=== PATIENT | male | born 1955 | race Caucasian/White ===

== ENCOUNTER 2016-12-20 20:08 | Emergency (ER) | payer OTHER ==
[2016-12-20] MEDS ORDERED: Acetaminophen/oxyCODONE 325-7.5 MG Tab PO ONE (20:50)
--- NOTE | 2016-12-20 20:54 | EDM.PDOC ---
ED HPI GENERAL MEDICAL PROBLEM - General Chief Complaint: Lower Extremity Injury/Pain Stated Complaint: KNEE PAIN Time Seen by Provider: 12/20/16 20:43 - History of Present Illness INITIAL COMMENTS - FREE TEXT/NARRATIVE: HISTORY AND PHYSICAL: History of present illness: The patient is a 61-year-old male with multiple medical history and a history of bilateral knee replacements here with Dr. Whitehead and presents with complaints of bilateral knee pain that started this morning when he woke up. Patient states he had a normal day yesterday and has had no recent falls or trauma to his knees. Patient has no systemic complaints of fever chills chest pain shortness of breath abdominal pain. Patient says that he has recently returned to work and has been doing more walking that nothing excessive. Patient takes Naprosyn daily and tried some Tylenol this morning and it did not help and he says that anytime he moves the knees or tries to weight-bear he is having pain. Patient is a diabetic and says that his blood sugar has not been well controlled and has been running in the 200s to 300s. He has not had polyuria polydipsia. The patient denies any weakness in his legs or neurovascular changes and has no distal ankle or foot pain pain and no hip pain. The patient does state that for his knee surgeries he used to get steroid injections at the clinic. Review of systems: As per history of present illness and below otherwise all systems reviewed and negative. Past medical history: As per history of present illness and as reviewed below otherwise noncontributory. Surgical history: As per history of present illness and as reviewed below otherwise noncontributory. Social history: No reported history of drug or alcohol abuse. Family history: As per history of present illness and as reviewed below otherwise noncontributory. Physical exam: Gen.: Well-developed well-nourished man who is overweight and nontoxic. Vital signs of the note by me. HEENT: Atraumatic, normocephalic, negative for conjunctival pallor or scleral icterus, mucous membranes moist, throat clear, neck supple, nontender, trachea midline. Lungs: Clear to auscultation, breath sounds equal bilaterally, chest nontender. Heart: S1S2, regular rhythm but slightly tachycardic rate on my evaluation and no overt murmurs Abdomen: Soft, nondistended, nontender. NABS Pelvis: Stable nontender. Genitourinary: Deferred. Rectal: Deferred. Extremities: Atraumatic with well-healed scars on bilateral knees noted, there is no warmth to bilateral knees no erythema and no joint effusions and no bony deformities, there is some diffuse tenderness at the anterior aspect of bilateral knees and there is gross arthritic changes bilaterally,, negative for cords or calf pain. Neurovascular unremarkable. Neuro: Awake, alert, oriented. Motor and sensory unremarkable throughout. Exam nonfocal. Diagnostics: CBC CMP CRP ESR uric acid I discussed x-rays with the patient but as he has had no recent trauma he and I both feel that the yield on that would be low. We will defer them at this time Therapeutics: [place] insulin I discussed all testing results with the patient and at bedside. [facility] with his [facility] there and they state they have an appointment with Dr. Sears in our clinic tomorrow. I discussed with him his use of sliding scale insulin and he said that he currently does not do that but I did tell them that they should address that with Dr. Sears tomorrow. I will give him a dose of insulin here as he is not acidotic and does not merit inpatient care. He states he has an Accu-Chek machine at home which I advised him to check his blood sugar in 1 hour after discharge and either take a snack or he may go to bed as long as the number is appropriate. He has a cane at home and does not want a walker and I' ve advised him to follow-up in the ortho clinic as well for care of his knees. At this point I cannot give him oral steroids as that will further complicate his blood sugar. He states understanding. I will give him some Percocet to take at home and have strongly advised him to follow-up with Dr. Sears and Dr. Whitehead Impression: Bilateral knee pain likely inflammatory/arthritic, hyperglycemia with a history of diabetes poorly controlled Definitive disposition and diagnosis as appropriate pending reevaluation and review of above. Bilateral Knee Pain Score (Numeric/FACES): 8 - Related Data Allergies Allergy/AdvReac Type Severity Reaction Status Date / Time Sulfa (Sulfonamide Allergy Other Verified 12/20/16 20:43 Antibiotics) bee stings Allergy Swelling Uncoded 12/20/16 20:43 Home Meds: Home Meds Lisinopril 20 mg PO BEDTIME 08/02/14 [History] atorvaSTATin [Lipitor] 20 mg PO BEDTIME 08/02/14 [History] Fluticasone Propionate [Flovent] 2 sprays NASBOTH ASDIRECTED PRN 09/20/15 [ History] Gabapentin [Neurontin] 300 mg PO Q8H 09/20/15 [History] Insulin Glarg,Human.Rec.Analog [LantUS Solostar] 20 units SQ QPM 09/20/15 [ History] Metoprolol Succinate [Toprol XL 100mg] 100 mg PO BEDTIME 09/20/15 [History] Omeprazole [Prilosec] 40 mg PO DAILY PRN 09/20/15 [History] Saxagliptin HCl [Onglyza] 5 mg PO BEDTIME 09/20/15 [History] metFORMIN HCl [Metformin HCl] 1,000 mg PO BID 09/20/15 [History] Aspirin [Adult Low Dose Aspirin EC] 81 mg PO BEDTIME 12/12/15 [History] glipiZIDE [Glucotrol] 10 mg PO BID 12/12/15 [History] Insulin Glarg,Human.Rec.Analog [LantUS Solostar] 50 units SUBCUT QAM 12/16/15 [ History] Insulin Aspart [NovoLOG] 8 units SUBCUT TID 12/20/16 [History] Past Medical History - Past Health History Medical/Surgical History: Denies Medical/Surgical History HEENT History: Reports: Allergic Rhinitis Other HEENT History: uses reading glasses Cardiovascular History: Reports: CAD, High Cholesterol, Hypertension Other Cardiovascular History: "Heart skips a beat every so often". Atypical chest pain, 40% occlusion RCA, on beta stephen and nitrates. walks 4-8 miles/ day Respiratory History: Reports: None Gastrointestinal History: Reports: None Other Gastrointestinal History: occasional GERD, diverticulitis Genitourinary History: Reports: None Musculoskeletal History: Reports: Arthritis, Fracture Other Musculoskeletal History: hx of fx right wrist, 2 fingers right hand, 2 ribs Neurological History: Reports: None Other Neuro History: tremor to left hand, bulging disk in spine Psychiatric History: Reports: None Endocrine/Metabolic History: Reports: Diabetes, Type I Other Endocrine/Metabolic History: on insulin, basal dose bid and sliding scale with meals. last dose of insulin was basal dose yeat evening Hematologic History: Reports: None Immunologic History: Reports: None Oncologic (Cancer) History: Reports: None Dermatologic History: Reports: None - Infectious Disease History Infectious Disease History: Reports: Chicken Pox, Measles, Mumps, Rubella - Past Surgical History Male Surgical History: Reports: Varicocele Resection Musculoskeletal Surgical History: Reports: Knee Replacement, Shoulder Surgery Social & Family History - Family History HEENT: Reports: Cataract Cardiac: Reports: Bypass, CAD, [place] Endocrine/Metabolic: Reports: Diabetes, type II Oncologic: Reports: Lung, Prostate - Tobacco Use Smoking Status *Q: Never Smoker Second Hand Smoke Exposure: No - Alcohol Use Days Per Week of Alcohol Use: 0 Number of Drinks Per Day: 0 Total Drinks Per Week: 0 - Recreational Drug Use Recreational Drug Use: No Drug Use in Last 12 Months: No Review of Systems - Review of Systems Review Of Systems: ROS reveals no pertinent complaints other than HPI. ED EXAM, GENERAL - Physical Exam Exam: See Below (See dictation) Course - Vital Signs Last Recorded V/S: Last Vital Signs Temp 36.6 C 12/20/16 20:39 Pulse 129 H 12/20/16 20:39 Resp 20 12/20/16 20:39 BP 161/84 H 12/20/16 20:39 Pulse Ox 95 12/20/16 20:39 - Orders/Labs/Meds Labs: Laboratory Tests 12/20/16 12/20/16 12/20/16 Range/Units 21:05 21:05 21:05 WBC 9.17 (4.0-11.0) K/uL RBC 4.66 (4.50-5.90) M/uL Hgb 13.2 (13.0-17.0) g/dL Hct 39.7 (38.0-50.0) % MCV 85.2 (80.0-98.0) fL MCH 28.3 (27.0-32.0) pg MCHC 33.2 (31.0-37.0) g/dL RDW Std Deviation 44.6 (28.0-62.0) fl RDW Coeff of Leny 14 (11.0-15.0) % Plt Count 134 L (150-400) K/uL MPV 9.50 (7.40-12.00) fL Neut % (Auto) 85.9 H (48.0-80.0) % Lymph % (Auto) 9.4 L (16.0-40.0) % Saline % (Auto) 4.3 (0.0-15.0) % Eos % (Auto) 0.3 (0.0-7.0) % Baso % (Auto) 0.1 (0.0-1.5) % Neut # (Auto) 7.9 H (1.4-5.7) K/uL Lymph # (Auto) 0.9 (0.6-2.4) K/uL Saline # (Auto) 0.4 (0.0-0.8) K/uL Eos # (Auto) 0.0 (0.0-0.7) K/uL Baso # (Auto) 0.0 (0.0-0.1) K/uL Nucleated RBC % 0.0 /100WBC Nucleated RBCs # 0 K/uL ESR 29 H (0-19) mm/hr Sodium 131 L (136-146) mmol/L Potassium 5.3 H (3.5-5.1) mmol/L Chloride 103 (98-110) mmol/L Carbon Dioxide 19 L (21-31) mmol/L BUN 25 H (6.0-23.0) mg/dL Creatinine 1.5 (0.6-1.5) mg/dL Est Cr Clr Drug Dosing 65.10 mL/min Estimated GFR (MDRD) 47.9 ml/min Glucose 435 H (60-110) mg/dL Hemoglobin A1c (0.0-6.0) % Uric Acid 6.5 (2.1-7.4) mg/dL Calcium 9.9 (8.8-10.8) mg/dL Total Bilirubin 0.6 (0.1-1.5) mg/dL AST 34 (5-40) IU/L ALT 56 H (8-54) IU/L Alkaline Phosphatase 149 (40-150) C-Reactive Protein 11.48 H (0.0-0.5) mg/dL Total Protein 7.5 (6.0-8.0) g/dL Albumin 4.1 (3.5-5.0) g/dL Globulin 3.4 (2.0-3.5) g/dL Albumin/Globulin Ratio 1.2 L (1.3-2.8) 12/20/ Range/Units 21:05 WBC (4.0-11.0) K/uL RBC (4.50-5.90) M/uL Hgb (13.0-17.0) g/dL Hct (38.0-50.0) % MCV (80.0-98.0) fL MCH (27.0-32.0) pg MCHC (31.0-37.0) g/dL RDW Std Deviation (28.0-62.0) fl RDW Coeff of Leny (11.0-15.0) % Plt Count (150-400) K/uL MPV (7.40-12.00) fL Neut % (Auto) (48.0-80.0) % Lymph % (Auto) (16.0-40.0) % Saline % (Auto) (0.0-15.0) % Eos % (Auto) (0.0-7.0) % Baso % (Auto) (0.0-1.5) % Neut # (Auto) (1.4-5.7) K/uL Lymph # (Auto) (0.6-2.4) K/uL Saline # (Auto) (0.0-0.8) K/uL Eos # (Auto) (0.0-0.7) K/uL Baso # (Auto) (0.0-0.1) K/uL Nucleated RBC % /100WBC Nucleated RBCs # K/uL ESR (0-19) mm/hr Sodium (136-146) mmol/L Potassium (3.5-5.1) mmol/L Chloride (98-110) mmol/L Carbon Dioxide (21-31) mmol/L BUN (6.0-23.0) mg/dL Creatinine (0.6-1.5) mg/dL Est Cr Clr Drug Dosing mL/min Estimated GFR (MDRD) ml/min Glucose (60-110) mg/dL Hemoglobin A1c 10.8 H (0.0-6.0) % Uric Acid (2.1-7.4) mg/dL Calcium (8.8-10.8) mg/dL Total Bilirubin (0.1-1.5) mg/dL AST (5-40) IU/L ALT (8-54) IU/L Alkaline Phosphatase (40-150) C-Reactive Protein (0.0-0.5) mg/dL Total Protein (6.0-8.0) g/dL Albumin (3.5-5.0) g/dL Globulin (2.0-3.5) g/dL Albumin/Globulin Ratio (1.3-2.8) Meds: Medications Discontinued Medications Generic Name Dose Route Start Last Admin Trade Name Nisha PRN Reason Stop Dose Admin Insulin Human Regular 20 unit 12/20/16 22:09 Novolin R SUBCUT 12/20/16 22:10 ONETIME ONE Protocol Oxycodone/Acetaminophen 1 tab 12/20/16 20:50 12/20/16 21:41 Percocet 325-7.5 Mg PO 12/20/16 20:51 1 tab ONETIME ONE Administration Departure - Departure Time of Disposition: 22:14 Disposition: Home, Self-Care 01 Condition: Good Clinical Impression: Bilateral knee pain Qualifiers: Chronicity: acute Qualified Code(s): M25.561 - Pain in right knee; M25.562 - Pain in left knee - Discharge Information Forms: ED Department Discharge Additional Instructions: The following information is given to patients seen in the emergency department who are being discharged to home. This information is to outline your options for follow-up care. We provide all patients seen in our emergency department with a follow-up referral. The need for follow-up, as well as the timing and circumstances, are variable depending upon the specifics of your emergency department visit. If you don't have a primary care physician on staff, we will provide you with a referral. We always advise you to contact your personal physician following an emergency department visit to inform them of the circumstance of the visit and for follow-up with them and/or the need for any referrals to a consulting specialist. The emergency department will also refer you to a specialist when appropriate. This referral assures that you have the opportunity for followup care with a specialist. All of these measure are taken in an effort to provide you with optimal care, which includes your followup. Under all circumstances we always encourage you to contact your private physician who remains a resource for coordinating your care. When calling for followup care, please make the office aware that this follow-up is from your recent emergency room visit. If for any reason you are refused follow-up, please contact the [facility] emergency department at and ask to speak to the emergency department charge nurse. [facility] Primary care- Internal Medicine and Family [address] [place] [id number] [facility] Specialty Care--Orthopedic clinic Professional Building [address] [place] [address] [phone] Please check your blood sugar at home as we discussed one hour after discharge and either eat a snack or you may go to bed pending that result. Please call and follow up in the ortho clinic for your knee pain and use Percocet you have been prescribed as needed. Please also keep your appointment with Dr. gomez to address her blood sugar as we discussed. Return to ER as needed and as discussed. Please use her cane
[2016-12-20] MEDS ORDERED: Insulin Regular, Human 100 Units/ML 10 ML Vial SUBCUT ONE (22:09)
[2016-12-20 22:27] VITALS: BP 138/80
[2016-12-20] MEDS ORDERED: Insulin Regular, Human 100 Units/ML 10 ML Vial ONE (22:33)
== END 2016-12-20 22:40 | disposition home or self-care (01) ==
LOC: MW.ED 20:08
DX: M25.562 Pain in left knee (principal); M25.561 Pain in right knee; E10.65 Type 1 diabetes mellitus with hyperglycemia; E78.00 Pure hypercholesterolemia, unspecified; I10 Essential (primary) hypertension; I25.10 Atherosclerotic heart disease of native coronary artery without angina pectoris; K21.9 Gastro-esophageal reflux disease without esophagitis; Z88.2 Allergy status to sulfonamides; Z91.030 Bee allergy status; Z79.899 Other long term (current) drug therapy; Z79.84 Long term (current) use of oral hypoglycemic drugs; Z79.82 Long term (current) use of aspirin
CPT/HCPCS: 36415; 80053; 83036; 84550; 85025; 85652; 86140; 96372; 99283; J1815; 99284

== ENCOUNTER 2017-08-09 08:42 | Emergency (ER) | payer OTHER ==
--- NOTE | 2017-08-09 09:35 | EDM.PDOC ---
ED HPI GENERAL MEDICAL PROBLEM - General Chief Complaint: Back Pain or Injury Stated Complaint: LOWER BACK PAIN Time Seen by Provider: 08/09/17 09:21 - History of Present Illness INITIAL COMMENTS - FREE TEXT/NARRATIVE: HISTORY AND PHYSICAL: History of present illness: Patient is a 61-year-old male who presents with complaints of lower back muscular pain that started 1-1/2 days ago when he twisted funny while at work at the [employer]. The patient said he did not feel the discomfort in the injury happened but later that evening it became more staff and the pain worsens with certain movements. The pain does not radiate to his leg and has had no bowel or bladder disturbances. He has not had any direct trauma to his back. The patient tells me he has a history of a disc problem in the past for which she got steroid injections with that disc problem the pain radiated to his legs and he had neurosensory changes and this is not like that. Patient has been using [id number] meds but did not get much sleep due to the discomfort. When asked specifically if he would be here without his employers insistence he tells me no ;patient was able to ambulate into the ED Patient has a history of diabetes hypercholesterolemia and hypertension [facility] which [facility] Review of systems: As per history of present illness and below otherwise all systems reviewed and negative. Past medical history: As per history of present illness and as reviewed below otherwise noncontributory. Surgical history: As per history of present illness and as reviewed below otherwise noncontributory. Social history: No reported history of drug or alcohol abuse. Family history: As per history of present illness and as reviewed below otherwise noncontributory. Physical exam: Gen.: Well-developed well-nourished overweight man who is nontoxic and vital signs have been reviewed by me HEENT: Atraumatic, normocephalic, negative for conjunctival pallor or scleral icterus, mucous membranes moist, throat clear, neck supple, nontender, trachea midline. Lungs: Clear to auscultation, breath sounds equal bilaterally, chest nontender. Heart: S1S2, regular, and rhythm no overt murmurs Abdomen: Soft, nondistended, nontender. NABS Negative for costovertebral tenderness. Pelvis: Stable nontender. Genitourinary: Deferred. Rectal: Deferred. Extremities: Atraumatic, negative for cords or calf pain. Neurovascular unremarkable. Neuro: Awake, alert, oriented. Cranial nerves II through XII unremarkable. Cerebellum unremarkable. Motor and sensory unremarkable throughout. Exam nonfocal. Back: There are no midline step-offs tenderness defects of the thoracic or lumbar spine there is diffuse tenderness in the lumbar paraspinal musculature bilaterally on palpation without swelling defects or deformities. Diagnostics: [] Therapeutics: Patient was offered x-rays but defers The patient drove himself so I will give muscle relaxers for home I caution the patient for close follow-up with the [facility] or one of our clinic providers and to apply heat use the Aleve he has as well as the muscle relaxer. I did strongly advised him that if he felt that the back was becoming more of a disc issue and he was having any neuro issues that he should return immediately to the [facility] or here for further evaluation and care. Impression: Lumbar back strain Definitive disposition and diagnosis as appropriate pending reevaluation and review of above. lower back Pain Score (Numeric/FACES): 8 - Related Data Allergies Allergy/AdvReac Type Severity Reaction Status Date / Time Sulfa (Sulfonamide Allergy Other Verified 08/09/17 08:51 Antibiotics) bee stings Allergy Swelling Uncoded 08/09/17 08:51 Home Meds: Home Meds Lisinopril 20 mg PO BEDTIME 08/02/14 [History] atorvaSTATin [Lipitor] 20 mg PO BEDTIME 08/02/14 [History] Fluticasone Propionate [Flovent] 2 sprays NASBOTH ASDIRECTED PRN 09/20/15 [ History] Gabapentin [Neurontin] 300 mg PO Q8H 09/20/15 [History] Insulin Glarg,Human.Rec.Analog [LantUS Solostar] 20 units SQ QPM 09/20/15 [ History] Metoprolol Succinate [Toprol XL 100mg] 100 mg PO BEDTIME 09/20/15 [History] Omeprazole [Prilosec] 40 mg PO DAILY PRN 09/20/15 [History] Saxagliptin HCl [Onglyza] 5 mg PO BEDTIME 09/20/15 [History] metFORMIN HCl [Metformin HCl] 1,000 mg PO BID 09/20/15 [History] Aspirin [Adult Low Dose Aspirin EC] 81 mg PO BEDTIME 12/12/15 [History] glipiZIDE [Glucotrol] 10 mg PO BID 12/12/15 [History] Insulin Glarg,Human.Rec.Analog [LantUS Solostar] 50 units SUBCUT QAM 12/16/15 [ History] Insulin Aspart [NovoLOG] 8 units SUBCUT TID 12/20/16 [History] Past Medical History - Past Health History Medical/Surgical History: Denies Medical/Surgical History HEENT History: Reports: Allergic Rhinitis Other HEENT History: uses reading glasses Cardiovascular History: Reports: CAD, High Cholesterol, Hypertension Other Cardiovascular History: "Heart skips a beat every so often". Atypical chest pain, 40% occlusion RCA, on beta stephen and nitrates. walks 4-8 miles/ day Respiratory History: Reports: None Gastrointestinal History: Reports: None Other Gastrointestinal History: occasional GERD, diverticulitis Genitourinary History: Reports: None Musculoskeletal History: Reports: Arthritis, Fracture Other Musculoskeletal History: hx of fx right wrist, 2 fingers right hand, 2 ribs Neurological History: Reports: None Other Neuro History: tremor to left hand, bulging disk in spine Psychiatric History: Reports: None Endocrine/Metabolic History: Reports: Diabetes, Type I Other Endocrine/Metabolic History: on insulin, basal dose bid and sliding scale with meals. Hematologic History: Reports: None Immunologic History: Reports: None Oncologic (Cancer) History: Reports: None Dermatologic History: Reports: None - Infectious Disease History Infectious Disease History: Reports: Chicken Pox, Measles, Mumps - Past Surgical History Head Surgeries/Procedures: Reports: None HEENT Surgical History: Reports: Oral Surgery Male Surgical History: Reports: Varicocele Resection Musculoskeletal Surgical History: Reports: Knee Replacement, Shoulder Surgery Other Musculoskeletal Surgeries/Procedures:: total knee x 2/ Rotator cuff surgery right shoulder. Social & Family History - Family History Family Medical History: Noncontributory HEENT: Reports: Cataract Cardiac: Reports: Bypass, CAD, [place] Endocrine/Metabolic: Reports: Diabetes, type II Oncologic: Reports: Lung, Prostate - Tobacco Use Smoking Status *Q: Never Smoker Second Hand Smoke Exposure: No - Caffeine Use Caffeine Use: Reports: Coffee Caffeine Use Comment: 1cup/day - Alcohol Use Days Per Week of Alcohol Use: 0 Number of Drinks Per Day: 0 Total Drinks Per Week: 0 - Recreational Drug Use Recreational Drug Use: No Drug Use in Last 12 Months: No ED ROS GENERAL - Review of Systems Review Of Systems: ROS reveals no pertinent complaints other than HPI. ED EXAM, GENERAL - Physical Exam Exam: See Below (see dictation) Course - Vital Signs Last Recorded V/S: Last Vital Signs Temp 36.3 C 08/09/17 08:52 Pulse 93 08/09/17 08:52 Resp 18 08/09/17 08:52 BP 166/81 H 08/09/17 08:52 Pulse Ox 95 08/09/17 08:52 Departure - Departure Time of Disposition: 09:35 Disposition: Home, Self-Care 01 Condition: Good Clinical Impression: Lumbar back sprain Qualifiers: Encounter type: initial encounter Qualified Code(s): S33.5XXA - Sprain of ligaments of lumbar spine, initial encounter - Discharge Information Referrals: PCP,None [Primary Care Provider] - Additional Instructions: The following information is given to patients seen in the emergency department who are being discharged to home. This information is to outline your options for follow-up care. We provide all patients seen in our emergency department with a follow-up referral. The need for follow-up, as well as the timing and circumstances, are variable depending upon the specifics of your emergency department visit. If you don't have a primary care physician on staff, we will provide you with a referral. We always advise you to contact your personal physician following an emergency department visit to inform them of the circumstance of the visit and for follow-up with them and/or the need for any referrals to a consulting specialist. The emergency department will also refer you to a specialist when appropriate. This referral assures that you have the opportunity for followup care with a specialist. All of these measure are taken in an effort to provide you with optimal care, which includes your followup. Under all circumstances we always encourage you to contact your private physician who remains a resource for coordinating your care. When calling for followup care, please make the office aware that this follow-up is from your recent emergency room visit. If for any reason you are refused follow-up, please contact the [facility] emergency department at and ask to speak to the emergency department charge nurse. [facility] Primary care- [place] [address] Please follow[facility] with [facility] or one of our providers in the next few days to recheck how you're doing and to have further evaluation and care of this back pain. Return to ER as needed and as discussed. Please use heat to the area and take the [id number] Aleve/ibuprofen along with a muscle relaxer. Please only take the muscle relaxer when you're at home as it may make you drowsy
[2017-08-09 10:01] VITALS: BP 163/84
== END 2017-08-09 09:59 | disposition home or self-care (01) ==
LOC: MW.ED 08:42
DX: S33.5XXA Sprain of ligaments of lumbar spine, initial encounter (principal); I10 Essential (primary) hypertension; E78.00 Pure hypercholesterolemia, unspecified; E10.9 Type 1 diabetes mellitus without complications; K21.9 Gastro-esophageal reflux disease without esophagitis; Z88.2 Allergy status to sulfonamides; Z91.030 Bee allergy status; Z79.899 Other long term (current) drug therapy; X50.9XXA Other and unspecified overexertion or strenuous movements or postures, initial encounter; Y92.242 Post office as the place of occurrence of the external cause
CPT/HCPCS: 99283; 99284

== ENCOUNTER 2017-12-10 10:02 | Observation (INO) | payer OTHER ==
--- NOTE | 2017-12-10 10:24 | EDM.PDOC ---
ED HPI GENERAL MEDICAL PROBLEM - General Stated Complaint: HEART FAILURE Time Seen by Provider: 12/10/17 10:10 Source of Information: Reports: Patient History Limitations: Reports: No Limitations - History of Present Illness INITIAL COMMENTS - FREE TEXT/NARRATIVE: HISTORY AND PHYSICAL: History of present illness: [Comes to the emergency room reporting decreased urination for the past 3 days. He has a history of renal failure, type 2 diabetes, hyperlipidemia, diabetic neuropathy, diabetic nephropathy, coronary artery disease, hypertension. [facility] 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 Did not produce urine for 21 hours from December 08 to December 09, has not produced urine for the past 22 hours. he is complaining of some right flank pain. Is not worse with palpation. Reported to the [facility] this morning and have labs drawn. Potassium 5.7, sodium 137, glucose 277, BUN 49, creatinine 1.7, hemoglobin 13.9. Was advised to follow-up in the ER regarding his electrolytes. [place] chilled last night while he was asleep, but denies any overt fevers. No earaches runny nose or sore throat. Denies cough, chest pain, shortness of breath and difficulty breathing. No abd pain. Admits to nausea but has had no episodes of vomiting. One loose stool last night. He has not produced any urine or bowel movements today. Complains of ongoing diabetic wound to left foot. He is following regularly with podiatry. This wound was trimmed last evening. He does not feel as though it's been improving. He regularly has diabetic foot ulcers every other year, but this year he has constantly had one or 2 present. No history of prosthesis. History of left knee replacement.] Review of systems: As per history of present illness and below otherwise all systems reviewed and negative. Past medical history: As per history of present illness and as reviewed below otherwise noncontributory. Surgical history: As per history of present illness and as reviewed below otherwise noncontributory. Social history: No reported history of drug or alcohol abuse. Family history: As per history of present illness and as reviewed below otherwise noncontributory. Physical exam: HEENT: Atraumatic, normocephalic. Oral mucous membranes are pink and moist. Supple, no lymphadenopathy. Eyes glasses. Lungs: Clear to auscultation, breath sounds equal bilaterally. Heart: S1S2, regular, negative for clicks, rubs, or JVD. Abdomen: Bowel sounds are normoactive throughout. Soft, nondistended, nontender. Negative for masses, guarding or rebound. Negative for costovertebral tenderness. Pelvis: Stable nontender. Genitourinary: Deferred. Rectal: Deferred. Extremities: 3 cm x 6 2 cm superficial ulcer to medial ball of plantar surface of left foot. negative for cords or calf pain. No swelling or cyanosis to feet or lower legs. Neurovascular unremarkable. Neuro: Awake, alert, oriented. Cranial nerves II through XII unremarkable. Cerebellum unremarkable. Motor and sensory unremarkable throughout. Exam nonfocal. Psych: Makes good eye contact, is pleasant and conversational. Diagnostics: [CBC, CMP, urinalysis, hemoglobin A1c, EKG] Therapeutics: [Zofran 4 mg ODT, 1 liter NS, Calcium gluconate 1 gram, sodium bicarb 50mg IV, D50 IV, 10 units regular insulin.] Impression: [hyperkalemia dehydration Type 2 insulin dependent diabetes] Plan: [EKG shows normal sinus rhythm with a rate of 85. No ST changes noted. Potassium is elevated at 5.7, sodium 135. GFR 38.8 with a BUN of 52 and creatinine of 1.8. Case is discussed with Dr. Luc Mcmahon who agrees to place patient in observation with telemetry. Patient is notified and is agreement with today's plan.] Definitive disposition and diagnosis as appropriate pending reevaluation and review of above. Right Flank Pain Score (Numeric/FACES): 1 - Related Data Allergies Allergy/AdvReac Type Severity Reaction Status Date / Time Sulfa (Sulfonamide Allergy Other Verified 12/10/17 10:21 Antibiotics) bee stings Allergy Swelling Uncoded 12/10/17 10:21 Home Meds: Home Meds Lisinopril 20 mg PO BEDTIME 08/02/14 [History] atorvaSTATin [Lipitor] 20 mg PO BEDTIME 08/02/14 [History] Fluticasone Propionate [Flovent] 2 sprays NASBOTH ASDIRECTED PRN 09/20/15 [ History] Gabapentin [Neurontin] 300 mg PO Q8H 09/20/15 [History] Metoprolol Succinate [Toprol XL 100mg] 100 mg PO BEDTIME 09/20/15 [History] Omeprazole [Prilosec] 40 mg PO DAILY PRN 09/20/15 [History] metFORMIN HCl [Metformin HCl] 1,000 mg PO BID 09/20/15 [History] Aspirin [Adult Low Dose Aspirin EC] 81 mg PO BEDTIME 12/12/15 [History] Insulin Glarg,Human.Rec.Analog [LantUS Solostar] 50 units SUBCUT BID 12/16/15 [ History] Insulin Aspart [NovoLOG] 8 units SUBCUT TID 12/20/16 [History] Past Medical History - Past Health History Medical/Surgical History: Denies Medical/Surgical History HEENT History: Reports: Allergic Rhinitis Other HEENT History: uses reading glasses Cardiovascular History: Reports: CAD, High Cholesterol, Hypertension Other Cardiovascular History: "Heart skips a beat every so often". Atypical chest pain, 40% occlusion RCA, on beta stephen and nitrates. walks 4-8 miles/ day Respiratory History: Reports: None Gastrointestinal History: Reports: None Other Gastrointestinal History: occasional GERD, diverticulitis Genitourinary History: Reports: None Musculoskeletal History: Reports: Arthritis, Fracture Other Musculoskeletal History: hx of fx right wrist, 2 fingers right hand, 2 ribs Neurological History: Reports: None Other Neuro History: tremor to left hand, bulging disk in spine Psychiatric History: Reports: None Endocrine/Metabolic History: Reports: Diabetes, Type I Other Endocrine/Metabolic History: on insulin, basal dose bid and sliding scale with meals. Hematologic History: Reports: None Immunologic History: Reports: None Oncologic (Cancer) History: Reports: None Dermatologic History: Reports: None - Infectious Disease History Infectious Disease History: Reports: Chicken Pox, Measles, Mumps - Past Surgical History Head Surgeries/Procedures: Reports: None HEENT Surgical History: Reports: Oral Surgery Male Surgical History: Reports: Varicocele Resection Musculoskeletal Surgical History: Reports: Knee Replacement, Shoulder Surgery Other Musculoskeletal Surgeries/Procedures:: total knee x 2/ Rotator cuff surgery right shoulder. Social & Family History - Family History Family Medical History: Noncontributory HEENT: Reports: Cataract Cardiac: Reports: Bypass, CAD, [place] Endocrine/Metabolic: Reports: Diabetes, type II Oncologic: Reports: Lung, Prostate - Caffeine Use Caffeine Use: Reports: Coffee Caffeine Use Comment: 1cup/day ED ROS GENERAL - Review of Systems Review Of Systems: ROS reveals no pertinent complaints other than HPI. ED EXAM, GENERAL - Physical Exam Exam: See Below Course - Vital Signs Last Recorded V/S: Last Vital Signs Temp 97.3 F 12/10/17 12:08 Pulse 89 12/10/17 12:08 Resp 15 12/10/17 10:59 BP 129/71 12/10/17 12:08 Pulse Ox 96 12/10/17 12:08 - Orders/Labs/Meds Orders: Active Orders 24 hr Category Date Time Status Patient Status [ADT] Stat ADT 12/10/17 12:35 Active EKG Documentation Completion [RC] STAT Care 12/10/17 12:07 Active Telemetry Monitoring [Cardiac Monitoring] [RC] . Care 12/10/17 12:36 Active DIRECTED UA W/MICROSCOPIC [URIN] Stat Lab 12/10/17 12:10 Ordered Sodium Chloride 0.9% [Saline Flush] Med 12/10/17 10:33 Active 10 ml FLUSH ASDIRECTED PRN Sodium Chloride 0.9% [Saline Flush] Med 12/10/17 10:33 Active 2.5 ml FLUSH ASDIRECTED PRN Saline Lock Insert [OM.PC] Stat Oth 12/10/17 10:33 Ordered Medication Orders Sodium Chloride (Saline Flush) 10 ml FLUSH ASDIRECTED PRN PRN Reason: Keep Vein Open Last Admin: 12/10/17 11:07 Dose: 10 ml Sodium Chloride (Saline Flush) 2.5 ml FLUSH ASDIRECTED PRN PRN Reason: Keep Vein Open Last Admin: 12/10/17 11:07 Dose: 2.5 ml Labs: Laboratory Tests 12/10/17 12/10/17 12/10/17 Range/Units 10:55 10:55 10:55 WBC 4.78 (4.0-11.0) K/uL RBC 4.24 L (4.50-5.90) M/uL Hgb 12.8 L (13.0-17.0) g/dL Hct 37.5 L (38.0-50.0) % MCV 88.4 (80.0-98.0) fL MCH 30.2 (27.0-32.0) pg MCHC 34.1 (31.0-37.0) g/dL RDW Std Deviation 46.6 (28.0-62.0) fl RDW Coeff of [place] 14 (11.0-15.0) % Plt Count 171 (150-400) K/uL MPV 9.40 (7.40-12.00) fL Neut % (Auto) 65.7 (48.0-80.0) % Lymph % (Auto) 20.9 (16.0-40.0) % [place] % (Auto) 8.4 (0.0-15.0) % Eos % (Auto) 4.4 (0.0-7.0) % Baso % (Auto) 0.6 (0.0-1.5) % Neut # (Auto) 3.1 (1.4-5.7) K/uL Lymph # (Auto) 1.0 (0.6-2.4) K/uL [place] # (Auto) 0.4 (0.0-0.8) K/uL Eos # (Auto) 0.2 (0.0-0.7) K/uL Baso # (Auto) 0.0 (0.0-0.1) K/uL Nucleated RBC % 0.0 /100WBC Nucleated RBCs # 0 K/uL Sodium 135 L (136-148) mmol/L Potassium 5.7 H (3.5-5.1) mmol/L Chloride 103 (98-107) mmol/L Carbon Dioxide 19.3 L (21.0-32.0) mmol/L BUN 52 H (7.0-18.0) mg/dL Creatinine 1.8 H (0.8-1.3) mg/dL Est Cr Clr Drug Dosing 54.25 mL/min Estimated GFR (MDRD) 38.8 ml/min Glucose 289 H (74-106) mg/dL Hemoglobin A1c 8.8 H (4.5-6.2) % Calcium 9.0 (8.5-10.1) mg/dL Total Bilirubin 0.3 (0.2-1.0) mg/dL AST 90 H (15-37) IU/L ALT 115 H (14-63) IU/L Alkaline Phosphatase 154 H (46-116) U/L Total Protein 7.4 (6.4-8.2) g/dL Albumin 3.8 (3.4-5.0) g/dL Globulin 3.6 H (2.0-3.5) g/dL Albumin/Globulin Ratio 1.1 L (1.3-2.8) Urine Color Urine Appearance Urine pH (5.0-8.0) Ur Specific [place] (1.001-1.035) Urine Protein (NEGATIVE) mg/dL Urine Glucose (UA) (NEGATIVE) mg/dL Urine Ketones (NEGATIVE) mg/dL Urine Occult Blood (NEGATIVE) Urine Nitrite (NEGATIVE) Urine Bilirubin (NEGATIVE) Urine Urobilinogen (<2.0) EU/dL Ur Leukocyte Esterase (NEGATIVE) Urine RBC (0-2/HPF) Urine WBC (0-5/HPF) Ur Epithelial Cells (NONE-FEW) Urine Bacteria (NEGATIVE) 12/10/17 Range/Units 12:10 WBC (4.0-11.0) K/uL RBC (4.50-5.90) M/uL Hgb (13.0-17.0) g/dL Hct (38.0-50.0) % MCV (80.0-98.0) fL MCH (27.0-32.0) pg MCHC (31.0-37.0) g/dL RDW Std Deviation (28.0-62.0) fl RDW Coeff of [place] (11.0-15.0) % Plt Count (150-400) K/uL MPV (7.40-12.00) fL Neut % (Auto) (48.0-80.0) % Lymph % (Auto) (16.0-40.0) % [place] % (Auto) (0.0-15.0) % Eos % (Auto) (0.0-7.0) % Baso % (Auto) (0.0-1.5) % Neut # (Auto) (1.4-5.7) K/uL Lymph # (Auto) (0.6-2.4) K/uL [place] # (Auto) (0.0-0.8) K/uL Eos # (Auto) (0.0-0.7) K/uL Baso # (Auto) (0.0-0.1) K/uL Nucleated RBC % /100WBC Nucleated RBCs # K/uL Sodium (136-148) mmol/L Potassium (3.5-5.1) mmol/L Chloride (98-107) mmol/L Carbon Dioxide (21.0-32.0) mmol/L BUN (7.0-18.0) mg/dL Creatinine (0.8-1.3) mg/dL Est Cr Clr Drug Dosing mL/min Estimated GFR (MDRD) ml/min Glucose (74-106) mg/dL Hemoglobin A1c (4.5-6.2) % Calcium (8.5-10.1) mg/dL Total Bilirubin (0.2-1.0) mg/dL AST (15-37) IU/L ALT (14-63) IU/L Alkaline Phosphatase (46-116) U/L Total Protein (6.4-8.2) g/dL Albumin (3.4-5.0) g/dL Globulin (2.0-3.5) g/dL Albumin/Globulin Ratio (1.3-2.8) Urine Color YELLOW Urine Appearance CLEAR Urine pH 5.0 (5.0-8.0) Ur Specific [place] 1.025 (1.001-1.035) Urine Protein NEGATIVE (NEGATIVE) mg/dL Urine Glucose (UA) 250 H (NEGATIVE) mg/dL Urine Ketones NEGATIVE (NEGATIVE) mg/dL Urine Occult Blood NEGATIVE (NEGATIVE) Urine Nitrite NEGATIVE (NEGATIVE) Urine Bilirubin NEGATIVE (NEGATIVE) Urine Urobilinogen 0.2 (<2.0) EU/dL Ur Leukocyte Esterase NEGATIVE (NEGATIVE) Urine RBC 0-2 (0-2/HPF) Urine WBC 0-1 (0-5/HPF) Ur Epithelial Cells FEW (NONE-FEW) Urine Bacteria RARE (NEGATIVE) Meds: Medications Generic Name Dose Route Start Last Admin Trade Name Freq PRN Reason Stop Dose Admin Sodium Chloride 10 ml 12/10/17 10:33 12/10/17 11:07 Saline Flush FLUSH 10 ml ASDIRECTED PRN Administration Keep Vein Open Sodium Chloride 2.5 ml 12/10/17 10:33 12/10/17 11:07 Saline Flush FLUSH 2.5 ml ASDIRECTED PRN Administration Keep Vein Open Discontinued Medications Generic Name Dose Route Start Last Admin Trade Name Freq PRN Reason Stop Dose Admin Calcium Gluconate 1 gm 12/10/17 12:12/10/17 12:24 Calcium Gluconate IVPUSH 12/10/17 12:08 1 gm ONETIME ONE Administration Dextrose/Water 50 ml 12/10/17 12:12/10/17 12:21 Dextrose 50% In Water IVPUSH 12/10/17 12:08 50 ml ONETIME ONE Administration Sodium Chloride 1,000 mls @ 999 mls/hr 12/10/17 10:58 12/10/17 11:09 Normal Saline IV 12/10/17 11:58 250 mls/hr STAT ONE Administration Insulin Human Regular 10 unit 12/10/17 12:07 12/10/17 12:34 Novolin R IVPUSH 12/10/17 12:08 10 unit ONETIME ONE Administration Protocol Ondansetron HCl 4 mg 12/10/17 10:33 12/10/17 11:09 Zofran Odt PO 12/10/17 10:34 4 mg ONETIME ONE Administration Sodium Bicarbonate 50 meq 12/10/17 12:07 12/10/17 12:21 Sodium Bicarbonate 8.4% IVPUSH 12/10/17 12:08 50 meq ONETIME ONE Administration Departure - Departure Time of Disposition: 12:35 Disposition: Refer to Observation Condition: Good Clinical Impression: Hyperkalemia, Dehydration, Type 2 diabetes mellitus - Discharge Information Referrals: PCP,None [Primary Care Provider] - - My Orders Last 24 Hours: My Active Orders 12/10/17 10:33 Sodium Chloride 0.9% [Saline Flush] 10 ml FLUSH ASDIRECTED PRN Sodium Chloride 0.9% [Saline Flush] 2.5 ml FLUSH ASDIRECTED PRN Saline Lock Insert [OM.PC] Stat 12/10/17 12:07 EKG Documentation Completion [RC] STAT 12/10/17 12:10 UA W/MICROSCOPIC [URIN] Stat 12/10/17 12:35 Patient Status [ADT] Stat 12/10/17 12:36 Telemetry Monitoring [Cardiac Monitoring] [RC] . DIRECTED - Assessment/Plan Last 24 Hours: My Active Orders 12/10/17 10:33 Sodium Chloride 0.9% [Saline Flush] 10 ml FLUSH ASDIRECTED PRN Sodium Chloride 0.9% [Saline Flush] 2.5 ml FLUSH ASDIRECTED PRN Saline Lock Insert [OM.PC] Stat 12/10/17 12:07 EKG Documentation Completion [RC] STAT 12/10/17 12:10 UA W/MICROSCOPIC [URIN] Stat 12/10/17 12:35 Patient Status [ADT] Stat 12/10/17 12:36 Telemetry Monitoring [Cardiac Monitoring] [RC] . DIRECTED
[2017-12-10] MEDS ORDERED: Sodium Chloride 0.9% 2.5 ML Syringe FLUSH PRN (10:33)
[2017-12-10] MEDS ORDERED: Sodium Chloride 0.9% 10 ML Syringe FLUSH PRN (10:33)
[2017-12-10] MEDS ORDERED: Ondansetron 4 MG Tab.DIS PO ONE (10:33)
[2017-12-10] MEDS ORDERED: Sodium Chloride 0.9% 1,000 ML IV ONE ×3 (10:58→18:00)
[2017-12-10] MEDS ORDERED: 50% Dextrose in Water 50 ML Syringe IVPUSH ONE (12:07)
[2017-12-10] MEDS ORDERED: Sodium Bicarbonate 8.4% 50 MEQ/50 ML Syringe IVPUSH ONE (12:07)
[2017-12-10] MEDS: Insulin Regular, Human 100 Units/ML 10 ML Vial IVPUSH ONE ×2 (12:22→12:34)
[2017-12-10] MEDS: Calcium Gluconate 10% 1 GM/10 ML SDV IVPUSH ONE ×2 (12:24→14:26)
[2017-12-10] MEDS ORDERED: Non-Formulary Medication 1 Each (Omeprazole [Prilosec] 40 MG) PO PRN (13:16)
[2017-12-10] MEDS ORDERED: FLUTICASONE PROPIONATE NASBOTH PRN (13:16)
[2017-12-10] MEDS ORDERED: Acetaminophen 325 MG Tab PO PRN (13:26)
[2017-12-10] MEDS ORDERED: Ondansetron 4 MG/2 ML SDV IVPUSH PRN (13:26)
[2017-12-10] MEDS ORDERED: Morphine 10 MG/ML Syringe IVPUSH PRN (13:26)
--- NOTE | 2017-12-10 13:39 | PCM.HP ---
H&P History of Present Illness - General Date of Service: 12/10/17 Admit Problem/Dx: Admission Diagnosis/Problem Admission Diagnosis/Problem Hyperkalemia Source of Information: Patient History Limitations: Reports: No Limitations - History of Present Illness Initial Comments - Free Text/Narative: 61M with a history of T2DM, KELSEY in 2015, CAD, HTN, HLD, Obesity that presented to the ER earlier today with a CC of not being able to produce any urine. He is concerned because the last time this happened, he was admitted to the hospital because of KELSEY, increased creatinine and high potassium. He states that he hasnt urinated for the past 22 hours despite drinking plenty of fluids. 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 No abdominal pain, fever, muscle aches. No flank pain. No hematuria. No recent changes in medications. Right Flank Pain Score (Numeric/FACES): 1 - Related Data Allergies/Adverse Reactions: Allergies Allergy/AdvReac Type Severity Reaction Status Date / Time Sulfa (Sulfonamide Allergy Other Verified 12/10/17 10:21 Antibiotics) bee stings Allergy Swelling Uncoded 12/10/17 10:21 Home Medications: Home Meds Lisinopril 20 mg PO BEDTIME 08/02/14 [History] atorvaSTATin [Lipitor] 20 mg PO BEDTIME 08/02/14 [History] Fluticasone Propionate [Flovent] 2 sprays NASBOTH ASDIRECTED PRN 09/20/15 [ History] Gabapentin [Neurontin] 300 mg PO Q8H 09/20/15 [History] Metoprolol Succinate [Toprol XL 100mg] 100 mg PO BEDTIME 09/20/15 [History] Omeprazole [Prilosec] 40 mg PO DAILY PRN 09/20/15 [History] metFORMIN HCl [Metformin HCl] 1,000 mg PO BID 09/20/15 [History] Aspirin [Adult Low Dose Aspirin EC] 81 mg PO BEDTIME 12/12/15 [History] Insulin Glarg,Human.Rec.Analog [LantUS Solostar] 50 units SUBCUT BID 12/16/15 [ History] Insulin Aspart [NovoLOG] 8 units SUBCUT TID 12/20/16 [History] Past Medical History - Past Health History Medical/Surgical History: Denies Medical/Surgical History HEENT History: Reports: Allergic Rhinitis Other HEENT History: uses reading glasses Cardiovascular History: Reports: CAD, High Cholesterol, Hypertension Other Cardiovascular History: "Heart skips a beat every so often". Atypical chest pain, 40% occlusion RCA, on beta stephen and nitrates. walks 4-8 miles/ day Respiratory History: Reports: None Gastrointestinal History: Reports: None Other Gastrointestinal History: occasional GERD, diverticulitis Genitourinary History: Reports: None Musculoskeletal History: Reports: Arthritis, Fracture Other Musculoskeletal History: hx of fx right wrist, 2 fingers right hand, 2 ribs Neurological History: Reports: None Other Neuro History: tremor to left hand, bulging disk in spine Psychiatric History: Reports: None Endocrine/Metabolic History: Reports: Diabetes, Type I Other Endocrine/Metabolic History: on insulin, basal dose bid and sliding scale with meals. Hematologic History: Reports: None Immunologic History: Reports: None Oncologic (Cancer) History: Reports: None Dermatologic History: Reports: None - Infectious Disease History Infectious Disease History: Reports: Chicken Pox, Measles, Mumps - Past Surgical History Head Surgeries/Procedures: Reports: None HEENT Surgical History: Reports: Oral Surgery Male Surgical History: Reports: Varicocele Resection Musculoskeletal Surgical History: Reports: Knee Replacement, Shoulder Surgery Other Musculoskeletal Surgeries/Procedures:: total knee x 2/ Rotator cuff surgery right shoulder. Social & Family History - Family History Family Medical History: Noncontributory HEENT: Reports: Cataract Cardiac: Reports: Bypass, CAD, [place] Endocrine/Metabolic: Reports: Diabetes, type II Oncologic: Reports: Lung, Prostate - Tobacco Use Smoking Status *Q: Never Smoker - Caffeine Use Caffeine Use: Reports: Coffee Caffeine Use Comment: 1cup/day - Recreational Drug Use Recreational Drug Use: No H&P Review of Systems - Review of Systems: Review Of Systems: See Below General: Reports: No Symptoms HEENT: Reports: No Symptoms Pulmonary: Reports: No Symptoms Cardiovascular: Reports: No Symptoms Gastrointestinal: Reports: No Symptoms Genitourinary: Reports: Other (anuria) Musculoskeletal: Reports: No Symptoms Skin: Reports: No Symptoms Psychiatric: Reports: No Symptoms Neurological: Reports: No Symptoms Hematologic/Lymphatic: Reports: No Symptoms Immunologic: Reports: No Symptoms Exam - Exam Exam: See Below - Vital Signs Vital Signs: Last Vital Signs Temp 36.3 C 12/10/17 13:00 Pulse 86 12/10/17 13:00 Resp 16 12/10/17 13:00 BP 111/64 12/10/17 13:00 Pulse Ox 96 12/10/17 13:00 Weight: 136.078 kg - Exam General: Alert, Oriented, 4 HEENT: PERRLA, Hearing Intact, Mucosa Moist & [place], Nares Patent, Normal Nasal Septum, Posterior Pharynx Clear, Conjunctiva Clear, EOMI, EACs Clear, TMs Clear Neck: Supple, Trachea Midline, 2 Lungs: Clear to Auscultation, Normal Respiratory Effort Cardiovascular: Regular Rate, Regular Rhythm GI/Abdominal Exam: Normal Bowel Sounds, Soft, Non-Tender, No Organomegaly, No Distention, No Abnormal Bruit, No Mass, Pelvis Stable (Male) Exam: Normal Prostate Back Exam: Normal Inspection, Full Range of Motion. No: CVA Tenderness (L), CVA Tenderness (R) Extremities: Normal Inspection, Normal Range of Motion, Non-Tender, No Pedal Edema, Normal Capillary Refill Peripheral Pulses: 2+: Posterior Tibial (L), Posterior Tibial (R), Dorsalis Pedis (L), Dorsalis Pedis (R) Skin: Warm, Dry, Intact Neurological: Cranial Nerves Intact, Reflexes Equal Bilateral Neuro Extensive - Mental Status: Alert, Oriented x3, Normal Mood/Affect, Normal Cognition Neuro Extensive - Motor, Sensory, Reflexes: CN II-XII Intact, Normal Gait, Normal Reflexes Psychiatric: Alert, Normal Affect, Normal Mood - Patient Data Lab Results Last 24 hrs: Laboratory Results - last 24 hr 12/10/17 12/10/17 12/10/17 Range/Units 10:55 10:55 10:55 WBC 4.78 (4.0-11.0) K/uL RBC 4.24 L (4.50-5.90) M/uL Hgb 12.8 L (13.0-17.0) g/dL Hct 37.5 L (38.0-50.0) % MCV 88.4 (80.0-98.0) fL MCH 30.2 (27.0-32.0) pg MCHC 34.1 (31.0-37.0) g/dL RDW Std Deviation 46.6 (28.0-62.0) fl RDW Coeff of Leny 14 (11.0-15.0) % Plt Count 171 (150-400) K/uL MPV 9.40 (7.40-12.00) fL Neut % (Auto) 65.7 (48.0-80.0) % Lymph % (Auto) 20.9 (16.0-40.0) % [place] % (Auto) 8.4 (0.0-15.0) % Eos % (Auto) 4.4 (0.0-7.0) % Baso % (Auto) 0.6 (0.0-1.5) % Neut # (Auto) 3.1 (1.4-5.7) K/uL Lymph # (Auto) 1.0 (0.6-2.4) K/uL [place] # (Auto) 0.4 (0.0-0.8) K/uL Eos # (Auto) 0.2 (0.0-0.7) K/uL Baso # (Auto) 0.0 (0.0-0.1) K/uL Nucleated RBC % 0.0 /100WBC Nucleated RBCs # 0 K/uL Sodium 135 L (136-148) mmol/L Potassium 5.7 H (3.5-5.1) mmol/L Chloride 103 (98-107) mmol/L Carbon Dioxide 19.3 L (21.0-32.0) mmol/L BUN 52 H (7.0-18.0) mg/dL Creatinine 1.8 H (0.8-1.3) mg/dL Est Cr Clr Drug Dosing 54.25 mL/min Estimated GFR (MDRD) 38.8 ml/min Glucose 289 H (74-106) mg/dL Hemoglobin A1c 8.8 H (4.5-6.2) % Calcium 9.0 (8.5-10.1) mg/dL Total Bilirubin 0.3 (0.2-1.0) mg/dL AST 90 H (15-37) IU/L ALT 115 H (14-63) IU/L Alkaline Phosphatase 154 H (46-116) U/L Total Protein 7.4 (6.4-8.2) g/dL Albumin 3.8 (3.4-5.0) g/dL Globulin 3.6 H (2.0-3.5) g/dL Albumin/Globulin Ratio 1.1 L (1.3-2.8) Urine Color Urine Appearance Urine pH (5.0-8.0) Ur Specific [place] (1.001-1.035) Urine Protein (NEGATIVE) mg/dL Urine Glucose (UA) (NEGATIVE) mg/dL Urine Ketones (NEGATIVE) mg/dL Urine Occult Blood (NEGATIVE) Urine Nitrite (NEGATIVE) Urine Bilirubin (NEGATIVE) Urine Urobilinogen (<2.0) EU/dL Ur Leukocyte Esterase (NEGATIVE) Urine RBC (0-2/HPF) Urine WBC (0-5/HPF) Ur Epithelial Cells (NONE-FEW) Urine Bacteria (NEGATIVE) 12/10/17 Range/Units 12:10 WBC (4.0-11.0) K/uL RBC (4.50-5.90) M/uL Hgb (13.0-17.0) g/dL Hct (38.0-50.0) % MCV (80.0-98.0) fL MCH (27.0-32.0) pg MCHC (31.0-37.0) g/dL RDW Std Deviation (28.0-62.0) fl RDW Coeff of Leny (11.0-15.0) % Plt Count (150-400) K/uL MPV (7.40-12.00) fL Neut % (Auto) (48.0-80.0) % Lymph % (Auto) (16.0-40.0) % [place] % (Auto) (0.0-15.0) % Eos % (Auto) (0.0-7.0) % Baso % (Auto) (0.0-1.5) % Neut # (Auto) (1.4-5.7) K/uL Lymph # (Auto) (0.6-2.4) K/uL [place] # (Auto) (0.0-0.8) K/uL Eos # (Auto) (0.0-0.7) K/uL Baso # (Auto) (0.0-0.1) K/uL Nucleated RBC % /100WBC Nucleated RBCs # K/uL Sodium (136-148) mmol/L Potassium (3.5-5.1) mmol/L Chloride (98-107) mmol/L Carbon Dioxide (21.0-32.0) mmol/L BUN (7.0-18.0) mg/dL Creatinine (0.8-1.3) mg/dL Est Cr Clr Drug Dosing mL/min Estimated GFR (MDRD) ml/min Glucose (74-106) mg/dL Hemoglobin A1c (4.5-6.2) % Calcium (8.5-10.1) mg/dL Total Bilirubin (0.2-1.0) mg/dL AST (15-37) IU/L ALT (14-63) IU/L Alkaline Phosphatase (46-116) U/L Total Protein (6.4-8.2) g/dL Albumin (3.4-5.0) g/dL Globulin (2.0-3.5) g/dL Albumin/Globulin Ratio (1.3-2.8) Urine Color YELLOW Urine Appearance CLEAR Urine pH 5.0 (5.0-8.0) Ur Specific [place] 1.025 (1.001-1.035) Urine Protein NEGATIVE (NEGATIVE) mg/dL Urine Glucose (UA) 250 H (NEGATIVE) mg/dL Urine Ketones NEGATIVE (NEGATIVE) mg/dL Urine Occult Blood NEGATIVE (NEGATIVE) Urine Nitrite NEGATIVE (NEGATIVE) Urine Bilirubin NEGATIVE (NEGATIVE) Urine Urobilinogen 0.2 (<2.0) EU/dL Ur Leukocyte Esterase NEGATIVE (NEGATIVE) Urine RBC 0-2 (0-2/HPF) Urine WBC 0-1 (0-5/HPF) Ur Epithelial Cells FEW (NONE-FEW) Urine Bacteria RARE (NEGATIVE) Result Diagrams: 12/10/17 10:55 12/10/17 10:55 Problem List Initiated/Reviewed/Updated: Yes Orders Last 24hrs: Active Orders 24 hr Category Date Time Status Patient Status [ADT] Stat ADT 12/10/17 12:35 Active Bladder Scan [RC] ONETIME Care 12/10/17 13:30 Ordered EKG Documentation Completion [RC] STAT Care 12/10/17 12:07 Active Oxygen Therapy [RC] PRN Care 12/10/17 13:26 Ordered Telemetry Monitoring [Cardiac Monitoring] [RC] . Care 12/10/17 12:36 Active DIRECTED Up ad Miya [RC] ASDIRECTED Care 12/10/17 13:26 Ordered VTE/DVT Education [RC] PER UNIT ROUTINE Care 12/10/17 13:26 Ordered Vital Signs [RC] Q4H Care 12/10/17 13:26 Ordered Regular Diet [DIET] Diet 12/10/17 Dinner Ordered Retroperitoneal Comp [US] Routine Exams 12/10/17 13:30 Ordered BASIC METABOLIC PANEL,BMP [CHEM] Timed Lab 12/10/17 16:00 Ordered CREATINE KINASE,CK [CHEM] Routine Lab 12/10/17 13:26 Ordered CREATININE,URINE RAND [URCHEM] Stat Lab 12/10/17 13:12 Ordered SODIUM,URINE RANDOM [URCHEM] Stat Lab 12/10/17 12:10 Received UA W/MICROSCOPIC [URIN] Stat Lab 12/10/17 12:10 Ordered Acetaminophen [Tylenol] Med 12/10/17 13:26 Ordered 650 mg PO Q4H PRN Fluticasone Propionate [Flovent] Med 12/10/17 13:16 Ordered 2 sprays NASBOTH ASDIRECTED PRN Gabapentin [Neurontin] Med 12/10/17 13:30 Ordered 300 mg PO Q8H Insulin Aspart [NovoLOG] Med 12/10/17 14:00 Ordered 8 unit SUBCUT TID Insulin Glarg,Human.Rec.Analog [LantUS Solostar] Med 12/10/17 21:00 Ordered 50 units SUBCUT BID Metoprolol Succinate [Toprol XL] Med 12/10/17 21:00 Ordered 100 mg PO BEDTIME Morphine Med 12/10/17 13:26 Ordered 2 mg IVPUSH Q2H PRN Omeprazole [Prilosec] Med 12/10/17 13:16 Ordered 40 mg PO DAILY PRN Ondansetron [Zofran] Med 12/10/17 13:26 Ordered 4 mg IVPUSH Q4H PRN Sodium Chloride 0.9% [Normal Saline] 1,000 ml Med 12/10/17 13:07 Active IV .Bolus Sodium Chloride 0.9% [Normal Saline] 1,000 ml Med 12/10/17 13:30 Ordered IV ASDIRECTED Sodium Chloride 0.9% [Saline Flush] Med 12/10/17 10:33 Active 10 ml FLUSH ASDIRECTED PRN Sodium Chloride 0.9% [Saline Flush] Med 12/10/17 10:33 Active 2.5 ml FLUSH ASDIRECTED PRN atorvaSTATin [Lipitor] Med 12/10/17 21:00 Ordered 20 mg PO BEDTIME Saline Lock Insert [OM.PC] Stat Oth 12/10/17 10:33 Ordered Sequential Compression Device [OM.PC] Per Unit Routine Oth 12/10/17 13:27 Ordered Resuscitation Status Routine Resus Stat 12/10/17 13:26 Ordered Medication Orders Acetaminophen (Tylenol) 650 mg PO Q4H PRN PRN Reason: Pain (Mild 1-3)/fever Atorvastatin Calcium (Lipitor) 20 mg PO BEDTIME NIYAH Gabapentin (Neurontin) 300 mg PO Q8H NIYAH Sodium Chloride (Normal Saline) 1,000 mls @ 999 mls/hr IV .Bolus ONE Stop: 12/10/17 14:07 Last Admin: 12/10/17 13:08 Dose: 999 mls/hr Sodium Chloride (Normal Saline) 1,000 mls @ 150 mls/hr IV ASDIRECTED [facility] Insulin Aspart (Novolog) 8 unit SUBCUT TID [facility] Insulin Glargine (Lantus Solostar) 50 units SUBCUT BID NIYAH Metoprolol Succinate (Toprol Xl) 100 mg PO BEDTIME NIYAH Morphine Sulfate (Morphine) 2 mg IVPUSH Q2H PRN PRN Reason: Pain (severe 7-10) Stop: 12/11/17 13:28 Non-Formulary Medication (Fluticasone Propionate [Flovent]) 2 sprays NASBOTH ASDIRECTED PRN PRN Reason: Congestion Non-Formulary Medication (Omeprazole [Prilosec]) 40 mg PO DAILY PRN PRN Reason: Heartburn Ondansetron HCl (Zofran) 4 mg IVPUSH Q4H PRN PRN Reason: Nausea Sodium Chloride (Saline Flush) 10 ml FLUSH ASDIRECTED PRN PRN Reason: Keep Vein Open Last Admin: 12/10/17 11:07 Dose: 10 ml Sodium Chloride (Saline Flush) 2.5 ml FLUSH ASDIRECTED PRN PRN Reason: Keep Vein Open Last Admin: 12/10/17 11:07 Dose: 2.5 ml Assessment/Plan Comment:: Assessment: #1. KELSEY #2. Hyperkalemia #3. Dehydration #4. History of KELSEY, CAD, T2DM, HLD Plan: #1. Admit to the floor for observation. Cardiac telemetry. Full code. Vital signs per floor routine. #2. SCD for DVT Prophylaxis. [place] score risk = 1, indicating no vte prophylaxis. #3. IVNS 150mL/h #4. Recheck BMP at 1600 #5. US kidney/bladder to r/o obstruction. Will also get a bladder scan for the same reason. Will hold off on rosenberg for now. #6. Obtain urine sodium, creatinine to calculate FeNa. This is likely a prerenal cause of KELSEY given the history #7. Continue all home meds except for metformin, lisinopril, aspirin. Avoid nephrotoxic agents #8. f/u on CK #9. Disposition 1-2 days.
[2017-12-10] MEDS ORDERED: Morphine 4 MG/ML Syringe IVPUSH PRN (13:42)
[2017-12-10] MEDS ORDERED: Fluticasone Propionate Nasal Spray 16 GM Bottle NASBOTH PRN (13:42)
[2017-12-10] MEDS ORDERED: Omeprazole 20 MG Cap.CR PO PRN (13:45)
[2017-12-10] MEDS ORDERED: Insulin Aspart 100 Units/ML 3 ML Pen SUBCUT SCH (14:00)
[2017-12-10] MEDS: Sodium Chloride 0.9% 1,000 ML IV SCH ×2 (14:11→20:45)
[2017-12-10] MEDS: Gabapentin 300 MG Cap PO SCH ×2 (14:24→20:41)
[2017-12-10] MEDS ORDERED: Albuterol 8 GM Inhaler INH PRN (17:18)
[2017-12-10] MEDS: Ascorbic Acid 500 MG Tab PO SCH (20:42)
[2017-12-10] MEDS ORDERED: Metoprolol Succinate 100 MG Tab.ER PO SCH (21:00)
[2017-12-10] MEDS ORDERED: Insulin Glargine,Human Rec. Analog 100 Units/ML 3 ML Pen SUBCUT SCH (21:00)
[2017-12-10] MEDS ORDERED: atorvaSTATin 20 MG Tab PO SCH ×2 (21:00→22:31)
[2017-12-10] MEDS: Insulin Glargine,Human Rec. Analog 100 Units/ML 3 ML Pen SUBCUT SCH (22:57)
[2017-12-11] MEDS: Sodium Chloride 0.9% 1,000 ML IV SCH ×2 (01:25→06:48)
[2017-12-11] MEDS: Gabapentin 300 MG Cap PO SCH (05:22)
[2017-12-11] MEDS ORDERED: Insulin Aspart 100 Units/ML 3 ML Pen SUBCUT SCH (07:30)
[2017-12-11] MEDS ORDERED: Ferrous Sulfate 325 MG Tab PO SCH (08:00)
[2017-12-11] MEDS: Ascorbic Acid 500 MG Tab PO SCH (08:13)
[2017-12-11] MEDS: Insulin Glargine,Human Rec. Analog 100 Units/ML 3 ML Pen SUBCUT SCH (08:22)
[2017-12-11] MEDS ORDERED: Metoprolol Succinate 100 MG Tab.ER PO SCH (09:00)
[2017-12-11] MEDS ORDERED: VICTOZA SUBCUT SCH (09:00)
--- NOTE | 2017-12-11 09:12 | PCM.DCSUM1 ---
Discharge Summary - Discharge Data Discharge Date: 12/11/17 Discharge Disposition: Home, Self-Care 01 Condition: Good - Patient Summary/Data Hospital Course: 61 year old male with a history of T2DM, CAD, HTN, HLD, and Obesity that presented to the ER with a complain of dehydration. 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 He reported despite trying to drink plenty of water he feels likely he is dehydrated as he did not urinate in over 22 hours. He stated three years ago he had similar problem not urinating after working in the sun and he waited to long and was admitted for acute kidney injury. On admission he reports fatigue but denies any pain or fevers. His was noted on laboratory to have a potassium of 5.7, Creatinine of 1.8, BUN of 52, glucose of 289 and CPK of 2200. He was admitted for dehydration and acute kidney injury and treated with IV fluids. His creatinine, CK and potassium levels did improve with IV fluid hydration. Today he is feeling better and is requesting discharge home. He was discharged home to follow up with [facility] clinic. - Patient Instructions Diet: Diabetic Diet - Discharge Plan Home Medications: Home Meds Lisinopril 20 mg PO DAILY 08/02/14 [History] atorvaSTATin [Lipitor] 20 mg PO BEDTIME 08/02/14 [History] Fluticasone Propionate [Flovent] 2 sprays NASBOTH DAILY PRN 09/20/15 [History] Gabapentin [Neurontin] 300 mg PO TID 09/20/15 [History] Metoprolol Succinate [Toprol XL 100mg] 100 mg PO DAILY 09/20/15 [History] Omeprazole [Prilosec] 40 mg PO DAILY 09/20/15 [History] metFORMIN HCl [Metformin HCl] 1,000 mg PO BID 09/20/15 [History] Aspirin [Adult Low Dose Aspirin EC] 81 mg PO BEDTIME 12/12/15 [History] Insulin Glarg,Human.Rec.Analog [LantUS Solostar] 50 units SUBCUT BID 12/16/15 [ History] Insulin Aspart [NovoLOG] 50 units SUBCUT TIDAC 12/20/16 [History] Albuterol Sulfate [Proair Respiclick] 2 puff IH Q6H PRN 12/10/17 [History] Ascorbic Acid 250 mg PO BID 12/10/17 [History] Ferrous Sulfate 325 mg PO BIDMEALS 12/10/17 [History] Liraglutide [Victoza] 0.3 ml SUBCUT DAILY 12/10/17 [History] Forms: ED Department Discharge Referrals: PCP,None [Primary Care Provider] - - Patient Data Vitals - Most Recent: Last Vital Signs Temp 36.7 C 12/11/17 03:58 Pulse 93 12/11/17 08:14 Resp 16 12/11/17 03:58 BP 133/71 12/11/17 08:14 Pulse Ox 96 12/11/17 03:58 Weight - Most Recent: 136.078 kg I&O - Last 24 hours: Intake & Output 12/10/17 12/11/17 12/11/17 22:59 06:59 14:59 Intake Total 2105 740 Output Total 400 2680 Balance 1705 -1940 Lab Results - Last 24 hrs: Laboratory Results - last 24 hr 12/10/17 12/10/17 12/10/17 Range/Units 10:54 10:55 10:55 WBC 4.78 (4.0-11.0) K/uL RBC 4.24 L (4.50-5.90) M/uL Hgb 12.8 L (13.0-17.0) g/dL Hct 37.5 L (38.0-50.0) % MCV 88.4 (80.0-98.0) fL MCH 30.2 (27.0-32.0) pg MCHC 34.1 (31.0-37.0) g/dL RDW Std Deviation 46.6 (28.0-62.0) fl RDW Coeff of Leny 14 (11.0-15.0) % Plt Count 171 (150-400) K/uL MPV 9.40 (7.40-12.00) fL Neut % (Auto) 65.7 (48.0-80.0) % Lymph % (Auto) 20.9 (16.0-40.0) % [place] % (Auto) 8.4 (0.0-15.0) % Eos % (Auto) 4.4 (0.0-7.0) % Baso % (Auto) 0.6 (0.0-1.5) % Neut # (Auto) 3.1 (1.4-5.7) K/uL Lymph # (Auto) 1.0 (0.6-2.4) K/uL [place] # (Auto) 0.4 (0.0-0.8) K/uL Eos # (Auto) 0.2 (0.0-0.7) K/uL Baso # (Auto) 0.0 (0.0-0.1) K/uL Nucleated RBC % 0.0 /100WBC Nucleated RBCs # 0 K/uL Sodium 135 L (136-148) mmol/L Potassium 5.7 H (3.5-5.1) mmol/L Chloride 103 (98-107) mmol/L Carbon Dioxide 19.3 L (21.0-32.0) mmol/L BUN 52 H (7.0-18.0) mg/dL Creatinine 1.8 H (0.8-1.3) mg/dL Est Cr Clr Drug Dosing 54.25 mL/min Estimated GFR (MDRD) 38.8 ml/min Glucose 289 H (74-106) mg/dL POC Glucose (60-110) mg/dL Hemoglobin A1c (4.5-6.2) % Calcium 9.0 (8.5-10.1) mg/dL Total Bilirubin 0.3 (0.2-1.0) mg/dL AST 90 H (15-37) IU/L ALT 115 H (14-63) IU/L Alkaline Phosphatase 154 H (46-116) U/L Creatine Kinase 2200 H (26-308) U/L Total Protein 7.4 (6.4-8.2) g/dL Albumin 3.8 (3.4-5.0) g/dL Globulin 3.6 H (2.0-3.5) g/dL Albumin/Globulin Ratio 1.1 L (1.3-2.8) Urine Color Urine Appearance Urine pH (5.0-8.0) Ur Specific Rowe (1.001-1.035) Urine Protein (NEGATIVE) mg/dL Urine Glucose (UA) (NEGATIVE) mg/dL Urine Ketones (NEGATIVE) mg/dL Urine Occult Blood (NEGATIVE) Urine Nitrite (NEGATIVE) Urine Bilirubin (NEGATIVE) Urine Urobilinogen (<2.0) EU/dL Ur Leukocyte Esterase (NEGATIVE) Urine RBC (0-2/HPF) Urine WBC (0-5/HPF) Ur Epithelial Cells (NONE-FEW) Urine Bacteria (NEGATIVE) Ur Random Creatinine mg/dL Ur Random Sodium (40.0-220.0) mmol/L 12/10/17 12/10/17 12/10/17 Range/Units 10:55 12:10 12:10 WBC (4.0-11.0) K/uL RBC (4.50-5.90) M/uL Hgb (13.0-17.0) g/dL Hct (38.0-50.0) % MCV (80.0-98.0) fL MCH (27.0-32.0) pg MCHC (31.0-37.0) g/dL RDW Std Deviation (28.0-62.0) fl RDW Coeff of Leny (11.0-15.0) % Plt Count (150-400) K/uL MPV (7.40-12.00) fL Neut % (Auto) (48.0-80.0) % Lymph % (Auto) (16.0-40.0) % [place] % (Auto) (0.0-15.0) % Eos % (Auto) (0.0-7.0) % Baso % (Auto) (0.0-1.5) % Neut # (Auto) (1.4-5.7) K/uL Lymph # (Auto) (0.6-2.4) K/uL [place] # (Auto) (0.0-0.8) K/uL Eos # (Auto) (0.0-0.7) K/uL Baso # (Auto) (0.0-0.1) K/uL Nucleated RBC % /100WBC Nucleated RBCs # K/uL Sodium (136-148) mmol/L Potassium (3.5-5.1) mmol/L Chloride (98-107) mmol/L Carbon Dioxide (21.0-32.0) mmol/L BUN (7.0-18.0) mg/dL Creatinine (0.8-1.3) mg/dL Est Cr Clr Drug Dosing mL/min Estimated GFR (MDRD) ml/min Glucose (74-106) mg/dL POC Glucose (60-110) mg/dL Hemoglobin A1c 8.8 H (4.5-6.2) % Calcium (8.5-10.1) mg/dL Total Bilirubin (0.2-1.0) mg/dL AST (15-37) IU/L ALT (14-63) IU/L Alkaline Phosphatase (46-116) U/L Creatine Kinase (26-308) U/L Total Protein (6.4-8.2) g/dL Albumin (3.4-5.0) g/dL Globulin (2.0-3.5) g/dL Albumin/Globulin Ratio (1.3-2.8) Urine Color YELLOW Urine Appearance CLEAR Urine pH 5.0 (5.0-8.0) Ur Specific Rowe 1.025 (1.001-1.035) Urine Protein NEGATIVE (NEGATIVE) mg/dL Urine Glucose (UA) 250 H (NEGATIVE) mg/dL Urine Ketones NEGATIVE (NEGATIVE) mg/dL Urine Occult Blood NEGATIVE (NEGATIVE) Urine Nitrite NEGATIVE (NEGATIVE) Urine Bilirubin NEGATIVE (NEGATIVE) Urine Urobilinogen 0.2 (<2.0) EU/dL Ur Leukocyte Esterase NEGATIVE (NEGATIVE) Urine RBC 0-2 (0-2/HPF) Urine WBC 0-1 (0-5/HPF) Ur Epithelial Cells FEW (NONE-FEW) Urine Bacteria RARE (NEGATIVE) Ur Random Creatinine 140.1 mg/dL Ur Random Sodium 33.0 L (40.0-220.0) mmol/L 12/10/17 12/10/17 12/10/17 Range/Units 16:10 16:41 22:21 WBC (4.0-11.0) K/uL RBC (4.50-5.90) M/uL Hgb (13.0-17.0) g/dL Hct (38.0-50.0) % MCV (80.0-98.0) fL MCH (27.0-32.0) pg MCHC (31.0-37.0) g/dL RDW Std Deviation (28.0-62.0) fl RDW Coeff of Leny (11.0-15.0) % Plt Count (150-400) K/uL MPV (7.40-12.00) fL Neut % (Auto) (48.0-80.0) % Lymph % (Auto) (16.0-40.0) % [place] % (Auto) (0.0-15.0) % Eos % (Auto) (0.0-7.0) % Baso % (Auto) (0.0-1.5) % Neut # (Auto) (1.4-5.7) K/uL Lymph # (Auto) (0.6-2.4) K/uL [place] # (Auto) (0.0-0.8) K/uL Eos # (Auto) (0.0-0.7) K/uL Baso # (Auto) (0.0-0.1) K/uL Nucleated RBC % /100WBC Nucleated RBCs # K/uL Sodium 142 (136-148) mmol/L Potassium 5.2 H (3.5-5.1) mmol/L Chloride 108 H (98-107) mmol/L Carbon Dioxide 26.9 (21.0-32.0) mmol/L BUN 46 H (7.0-18.0) mg/dL Creatinine 1.5 H (0.8-1.3) mg/dL Est Cr Clr Drug Dosing 65.10 mL/min Estimated GFR (MDRD) 47.9 ml/min Glucose 96 (74-106) mg/dL POC Glucose 83 109 (60-110) mg/dL Hemoglobin A1c (4.5-6.2) % Calcium 8.7 (8.5-10.1) mg/dL Total Bilirubin (0.2-1.0) mg/dL AST (15-37) IU/L ALT (14-63) IU/L Alkaline Phosphatase (46-116) U/L Creatine Kinase (26-308) U/L Total Protein (6.4-8.2) g/dL Albumin (3.4-5.0) g/dL Globulin (2.0-3.5) g/dL Albumin/Globulin Ratio (1.3-2.8) Urine Color Urine Appearance Urine pH (5.0-8.0) Ur Specific Rowe (1.001-1.035) Urine Protein (NEGATIVE) mg/dL Urine Glucose (UA) (NEGATIVE) mg/dL Urine Ketones (NEGATIVE) mg/dL Urine Occult Blood (NEGATIVE) Urine Nitrite (NEGATIVE) Urine Bilirubin (NEGATIVE) Urine Urobilinogen (<2.0) EU/dL Ur Leukocyte Esterase (NEGATIVE) Urine RBC (0-2/HPF) Urine WBC (0-5/HPF) Ur Epithelial Cells (NONE-FEW) Urine Bacteria (NEGATIVE) Ur Random Creatinine mg/dL Ur Random Sodium (40.0-220.0) mmol/L 12/11/17 12/11/17 12/11/17 Range/Units 05:29 06:46 08:20 WBC (4.0-11.0) K/uL RBC (4.50-5.90) M/uL Hgb (13.0-17.0) g/dL Hct (38.0-50.0) % MCV (80.0-98.0) fL MCH (27.0-32.0) pg MCHC (31.0-37.0) g/dL RDW Std Deviation (28.0-62.0) fl RDW Coeff of Leny (11.0-15.0) % Plt Count (150-400) K/uL MPV (7.40-12.00) fL Neut % (Auto) (48.0-80.0) % Lymph % (Auto) (16.0-40.0) % [place] % (Auto) (0.0-15.0) % Eos % (Auto) (0.0-7.0) % Baso % (Auto) (0.0-1.5) % Neut # (Auto) (1.4-5.7) K/uL Lymph # (Auto) (0.6-2.4) K/uL [place] # (Auto) (0.0-0.8) K/uL Eos # (Auto) (0.0-0.7) K/uL Baso # (Auto) (0.0-0.1) K/uL Nucleated RBC % /100WBC Nucleated RBCs # K/uL Sodium 142 (136-148) mmol/L Potassium 5.4 H (3.5-5.1) mmol/L Chloride 110 H (98-107) mmol/L Carbon Dioxide 25.7 (21.0-32.0) mmol/L BUN 35 H (7.0-18.0) mg/dL Creatinine 1.3 (0.8-1.3) mg/dL Est Cr Clr Drug Dosing 75.12 mL/min Estimated GFR (MDRD) 56.5 ml/min Glucose 106 (74-106) mg/dL POC Glucose 97 168 H (60-110) mg/dL Hemoglobin A1c (4.5-6.2) % Calcium 8.3 L (8.5-10.1) mg/dL Total Bilirubin (0.2-1.0) mg/dL AST (15-37) IU/L ALT (14-63) IU/L Alkaline Phosphatase (46-116) U/L Creatine Kinase 968 H (26-308) U/L Total Protein (6.4-8.2) g/dL Albumin (3.4-5.0) g/dL Globulin (2.0-3.5) g/dL Albumin/Globulin Ratio (1.3-2.8) Urine Color Urine Appearance Urine pH (5.0-8.0) Ur Specific Rowe (1.001-1.035) Urine Protein (NEGATIVE) mg/dL Urine Glucose (UA) (NEGATIVE) mg/dL Urine Ketones (NEGATIVE) mg/dL Urine Occult Blood (NEGATIVE) Urine Nitrite (NEGATIVE) Urine Bilirubin (NEGATIVE) Urine Urobilinogen (<2.0) EU/dL Ur Leukocyte Esterase (NEGATIVE) Urine RBC (0-2/HPF) Urine WBC (0-5/HPF) Ur Epithelial Cells (NONE-FEW) Urine Bacteria (NEGATIVE) Ur Random Creatinine mg/dL Ur Random Sodium (40.0-220.0) mmol/L Med Orders - Current: Current Medications Acetaminophen (Tylenol) 650 mg PO Q4H PRN PRN Reason: Pain (Mild 1-3)/fever Albuterol (Ventolin Hfa) 2 gm INH Q6H PRN PRN Reason: breathing Ascorbic Acid (Vitamin C) 250 mg PO BID [facility] Last Admin: 12/11/17 08:13 Dose: 250 mg Atorvastatin Calcium (Lipitor) 20 mg PO BEDTIME [facility] Last Admin: 12/10/17 22:56 Dose: 20 mg Ferrous Sulfate (Ferrous Sulfate) 325 mg PO BIDMEALS [facility] Last Admin: 12/11/17 08:14 Dose: 325 mg Fluticasone Propionate (Flonase) 2 gm NASBOTH ASDIRECTED PRN PRN Reason: Congestion Gabapentin (Neurontin) 300 mg PO Q8H [facility] Last Admin: 12/11/17 05:22 Dose: 300 mg Sodium Chloride (Normal Saline) 1,000 mls @ 200 mls/hr IV ASDIRECTED [facility] Last Admin: 12/11/17 06:48 Dose: 200 mls/hr Insulin Aspart (Novolog) 0 unit SUBCUT TIDAC [facility]; Protocol Last Admin: 12/11/17 06:53 Dose: Not Given Insulin Glargine (Lantus Solostar) 0 units SUBCUT BID [facility] Last Admin: 12/11/17 08:22 Dose: 25 units Metoprolol Succinate (Toprol Xl) 100 mg PO DAILY [facility] Last Admin: 12/11/17 08:14 Dose: 100 mg Morphine Sulfate (Morphine) 2 mg IVPUSH Q2H PRN PRN Reason: Pain (severe 7-10) Omeprazole (Omeprazole) 40 mg PO ACBREAKFAST PRN PRN Reason: Heartburn Ondansetron HCl (Zofran) 4 mg IVPUSH Q4H PRN PRN Reason: Nausea Victoza 0.3 each SUBCUT DAILY [facility] Last Admin: 12/11/17 08:22 Dose: Not Given Sodium Chloride (Saline Flush) 10 ml FLUSH ASDIRECTED PRN PRN Reason: Keep Vein Open Last Admin: 12/10/17 11:07 Dose: 10 ml Sodium Chloride (Saline Flush) 2.5 ml FLUSH ASDIRECTED PRN PRN Reason: Keep Vein Open Last Admin: 12/10/17 11:07 Dose: 2.5 ml Discontinued Medications Atorvastatin Calcium (Lipitor) 20 mg PO BEDTIME [facility] Calcium Gluconate (Calcium Gluconate) 1 gm IVPUSH ONETIME ONE Stop: 12/10/17 12:08 Last Admin: 12/10/17 14:26 Dose: Not Given Dextrose/Water (Dextrose 50% In Water) 50 ml IVPUSH ONETIME ONE Stop: 12/10/17 12:08 Last Admin: 12/10/17 12:21 Dose: 50 ml Sodium Chloride (Normal Saline) 1,000 mls @ 999 mls/hr IV STAT ONE Stop: 12/10/17 11:58 Last Admin: 12/10/17 11:09 Dose: 250 mls/hr Sodium Chloride (Normal Saline) 1,000 mls @ 999 mls/hr IV .Bolus ONE Stop: 12/10/17 14:07 Last Admin: 12/10/17 13:08 Dose: 999 mls/hr Sodium Chloride (Normal Saline) 1,000 mls @ 999 mls/hr IV ONETIME ONE Stop: 12/10/17 19:00 Last Admin: 12/10/17 18:18 Dose: 999 mls/hr Insulin Aspart (Novolog) 8 unit SUBCUT TID [facility] Last Admin: 12/10/17 14:45 Dose: Not Given Insulin Glargine (Lantus Solostar) 50 units SUBCUT BID [facility] Insulin Human Regular (Novolin R) 10 unit IVPUSH ONETIME ONE; Protocol Stop: 12/10/17 12:08 Last Admin: 12/10/17 12:34 Dose: 10 unit Metoprolol Succinate (Toprol Xl) 100 mg PO BEDTIME [facility] Morphine Sulfate (Morphine) 2 mg IVPUSH Q2H PRN PRN Reason: Pain (severe 7-10) Stop: 12/11/17 13:28 Non-Formulary Medication (Fluticasone Propionate [Flovent]) 2 sprays NASBOTH ASDIRECTED PRN PRN Reason: Congestion Non-Formulary Medication (Omeprazole [Prilosec]) 40 mg PO DAILY PRN PRN Reason: Heartburn Ondansetron HCl (Zofran Odt) 4 mg PO ONETIME ONE Stop: 12/10/17 10:34 Last Admin: 12/10/17 11:09 Dose: 4 mg Sodium Bicarbonate (Sodium Bicarbonate 8.4%) 50 meq IVPUSH ONETIME ONE Stop: 12/10/17 12:08 Last Admin: 12/10/17 12:21 Dose: 50 meq
[2017-12-11 09:24] VITALS: BP 137/71
--- NOTE | 2017-12-13 10:25 | US ---
EXAM DATE: 12/10/17 PATIENT'S AGE: 61 Patient: MIO MADRID Facility: [place], [place] Site . Site : 1955 Study: US Abdomen [id number] 4:49:15 PM Ordering Physician: Salome Calle Final Report: INDICATION: Acute kidney injury. Rule out obstruction. History of diabetes. FINDINGS: Left kidney 11 x 5 x 5 cm. Cortical thickness and echogenicity are normal. No hydronephrosis, mass or cyst. Right kidney is 12 x 6 x 5 cm. Normal cortical thickness and echogenicity. Two cysts contiguous at the lower pole roughly 3 x 3.7 cm in diameter. No mass. No hydronephrosis. Urinary bladder is incompletely distended but unremarkable sonographically. Bilateral ureteral jets. No significant postvoid residual. IMPRESSION: No hydronephrosis or acute renal findings. Benign cyst lower pole on the right. Dictated by Pavel Pepper MD @ Dec 11 2017 10:18AM (Electronic Signature) Report Signed by Proxy. JO-ANN
== END 2017-12-11 10:00 | disposition home or self-care (01) ==
LOC: MW.ED 10:02 → MW.MS 12:35 → UNDODISOB 12-11 10:00
PROVIDERS: ADMIT Internal Medicine; ATTEND Internal Medicine
DX: E87.5 Hyperkalemia (principal); E86.0 Dehydration; E11.9 Type 2 diabetes mellitus without complications; E78.00 Pure hypercholesterolemia, unspecified; E78.5 Hyperlipidemia, unspecified; I25.10 Atherosclerotic heart disease of native coronary artery without angina pectoris; I10 Essential (primary) hypertension; M19.90 Unspecified osteoarthritis, unspecified site; N17.9 Acute kidney failure, unspecified; Z79.4 Long term (current) use of insulin; Z79.82 Long term (current) use of aspirin; Z79.899 Other long term (current) drug therapy; Z88.2 Allergy status to sulfonamides; Z91.030 Bee allergy status
CPT/HCPCS: 36415; 76775; 80048; 80053; 81001; 82550; 82570; 82962; 83036; 84300; 85025; 93005; 99285; A9270; J0610; J1815; J7040; J7060; 99284

== ENCOUNTER 2018-12-30 15:19 | Observation (INO) | payer OTHER ==
[2018-12-30] MEDS ORDERED: Sodium Chloride 0.9% 2.5 ML Syringe FLUSH PRN (15:25)
[2018-12-30] MEDS ORDERED: Sodium Chloride 0.9% 10 ML Syringe FLUSH PRN (15:25)
--- NOTE | 2018-12-30 15:55 | EDM.PDOC ---
ED HPI GENERAL MEDICAL PROBLEM - General Chief Complaint: Neuro Symptoms/Deficits Stated Complaint: dizzy Time Seen by Provider: 12/30/18 15:25 Source of Information: Reports: Patient History Limitations: Reports: No Limitations - History of Present Illness INITIAL COMMENTS - FREE TEXT/NARRATIVE: HISTORY AND PHYSICAL: History of present illness: Patient is a 63-year-old male presents to the ED today with concern of dizziness and lightheadedness, loss of balance since yesterday. Patient states he has a history of kidney issues in the past and has had similar symptoms in the past and this kidney stopped working. Patient states he has noticed a decrease in his urine output over the past 24 hours. He states he has been able to urinate just been minimally. Patient states he has a history of rhabdomyolysis in the past which presents similar to how he feels today. Patient does express he is having cramping in his calves. Patient was sent over from the [place] after lab work, but patient states he does not know what the labwork shows. Patient denies any other symptoms or concerns at this time. Patient denies fever, chills, chest pain, shortness of breath, or cough. Denies headache, neck stiff ness, change in vision, syncope, or near syncope. Denies nausea, vomiting, abdominal pain, diarrhea, constipation, or dysuria. Has not noted any blood in urine or stool. Patient has been eating and drinking appropriately. Review of systems: As per history of present illness and below otherwise all systems reviewed and negative. Past medical history: As per history of present illness and as reviewed below otherwise noncontributory. Surgical history: As per history of present illness and as reviewed below otherwise noncontributory. Social history: See social history for further information Family history: As per history of present illness and as reviewed below otherwise noncontributory. Physical exam: Physical exam is limited due to body habitus. General: Patient is alert, oriented, and in no acute distress. Patient laying comfortably on exam table. HEENT: Atraumatic, normocephalic, pupils equal and reactive bilaterally, negative for conjunctival pallor or scleral icterus, mucous membranes moist, TMs normal bilaterally, throat clear, neck supple, nontender, trachea midline. No drooling or trismus noted. No meningeal signs. No hot potato voice noted. Lungs: Clear to auscultation, breath sounds equal bilaterally, chest nontender. Heart: Obese, S1S2, regular rate and rhythm without overt murmur Abdomen: Soft, nondistended, nontender. Negative for masses or hepatosplenomegaly. Negative for costovertebral tenderness. Pelvis: Stable nontender. Genitourinary: Deferred. Rectal: Deferred. Skin: Intact, warm, dry. No lesions or rashes noted. Extremities: Atraumatic, negative for cords or calf pain. Neurovascular unremarkable. Neuro: Awake, alert, oriented. Cranial nerves II through XII unremarkable. Notes: Dr. Mcmahon consult on patient and will admit to observation. Voices understanding and is agreeable to plan of care. Denies any further questions or concerns at this time. 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 Admit to observation to Dr. Mcmahon Definitive disposition and diagnosis as appropriate pending reevaluation and review of above. - Related Data Allergies Allergy/AdvReac Type Severity Reaction Status Date / Time Sulfa (Sulfonamide Allergy Other Verified 12/30/18 15:20 Antibiotics) bee stings Allergy Swelling Uncoded 12/30/18 15:20 Home Meds: Home Meds metFORMIN HCl [Metformin HCl] 1,000 mg PO BID 09/20/15 [History] Aspirin [Adult Low Dose Aspirin EC] 81 mg PO BEDTIME 12/12/15 [History] Albuterol Sulfate [Proair Respiclick] 2 puff IH Q6H PRN 12/10/17 [History] Ascorbic Acid 250 mg PO BID 12/10/17 [History] Ferrous Sulfate 325 mg PO BIDMEALS 12/10/17 [History] Liraglutide [Victoza] 0.3 ml SUBCUT DAILY 12/10/17 [History] Clindamycin HCl 300 mg PO Q8H 12/30/18 [History] Gabapentin [Neurontin] 600 mg PO TID 12/30/18 [History] Insulin Lispro [Humalog Kwikpen U-200] 100 units SQ DAILY@20 12/30/18 [History] Insulin Lispro [Humalog Kwikpen U-200] 105 units SQ DAILY 12/30/18 [History] Lisinopril 20 mg PO DAILY 12/30/18 [History] Omeprazole 40 mg PO ACBREAKFAST 12/30/18 [History] Propranolol [Inderal LA 24 Hr] 60 mg PO DAILY 12/30/18 [History] atorvaSTATin [Lipitor] 20 mg PO BEDTIME 12/30/18 [History] Past Medical History - Past Health History Medical/Surgical History: Denies Medical/Surgical History HEENT History: Reports: Allergic Rhinitis, Impaired Vision Other HEENT History: uses reading glasses Cardiovascular History: Reports: CAD, High Cholesterol, Hypertension Other Cardiovascular History: "Heart skips a beat every so often". Atypical chest pain, 40% occlusion RCA, on beta stephen and nitrates. 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 Hematologic History: Reports: None Immunologic History: Reports: None Oncologic (Cancer) History: Reports: None Dermatologic History: Reports: None - Infectious Disease History Infectious Disease History: Reports: Chicken Pox, Measles, Mumps - Past Surgical History Head Surgeries/Procedures: Reports: None HEENT Surgical History: Reports: Oral Surgery Male Surgical History: Reports: Varicocele Resection Musculoskeletal Surgical History: Reports: Knee Replacement, Shoulder Surgery Other Musculoskeletal Surgeries/Procedures:: total knee x 2/ Rotator cuff surgery right shoulder. Social & Family History - Family History Family Medical History: Noncontributory HEENT: Reports: Cataract Cardiac: Reports: Bypass, CAD, [place] Endocrine/Metabolic: Reports: Diabetes, type II Oncologic: Reports: Lung, Prostate - Tobacco Use Smoking Status *Q: Never Smoker - Caffeine Use Caffeine Use: Reports: None Other Caffeine Use: 1 cup coffee and 1 Diet Mountain Dew per day Caffeine Use Comment: 1cup/day - Recreational Drug Use Recreational Drug Use: No ED ROS GENERAL - Review of Systems Review Of Systems: ROS reveals no pertinent complaints other than HPI. ED EXAM, RENAL/ - Physical Exam Exam: See Below (See dictation) Course - Vital Signs Last Recorded V/S: Last Vital Signs Temp 36.8 C 12/30/18 15:20 Pulse 81 12/30/18 15:20 Resp 18 12/30/18 15:20 BP 118/61 12/30/18 15:20 Pulse Ox 95 12/30/18 15:20 Orthostatic Blood Pressure [ 103/64 Standing] Orthostatic Blood Pressure [ 95/55 Sitting] Orthostatic Blood Pressure [ 91/54 Supine] - Orders/Labs/Meds Orders: Active Orders 24 hr Category Date Time Status Admission Status [Patient Status] [ADT] Stat ADT 12/30/18 16:59 Ordered Cardiac Monitoring [RC] . DIRECTED Care 12/30/18 15:25 Active EKG Documentation Completion [RC] STAT Care 12/30/18 15:25 Active Glucose [Blood Glucose Check, Bedside] [RC] ONETIME Care 12/30/18 15:27 Active Orthostatic Vital Signs [RC] ASDIRECTED Care 12/30/18 15:26 Active Head wo Cont [CT] Stat Exams 12/30/18 15:55 Taken UA RFX HOLDEN AND CULT IF INDIC [URIN] Stat Lab 12/30/18 15:25 Ordered Sodium Chloride 0.9% [Normal Saline] 1,000 ml Med 12/30/18 16:30 Active IV STAT Sodium Chloride 0.9% [Saline Flush] Med 12/30/18 15:25 Active 10 ml FLUSH ASDIRECTED PRN Sodium Chloride 0.9% [Saline Flush] Med 12/30/18 15:25 Active 2.5 ml FLUSH ASDIRECTED PRN Saline Lock Insert [OM.PC] Stat Oth 12/30/18 15:25 Ordered Medication Orders Sodium Chloride (Normal Saline) 1,000 mls @ 999 mls/hr IV STAT ONE Stop: 12/30/18 17:30 Last Admin: 12/30/18 17:03 Dose: 999 mls/hr Sodium Chloride (Saline Flush) 10 ml FLUSH ASDIRECTED PRN PRN Reason: Keep Vein Open Sodium Chloride (Saline Flush) 2.5 ml FLUSH ASDIRECTED PRN PRN Reason: Keep Vein Open Labs: Laboratory Tests 12/30/18 12/30/18 12/30/18 Range/Units 15:34 15:34 15:39 WBC 8.89 (4.0-11.0) K/uL RBC 4.15 L (4.50-5.90) M/uL Hgb 12.4 L (13.0-17.0) g/dL Hct 36.9 L (38.0-50.0) % MCV 88.9 (80.0-98.0) fL MCH 29.9 (27.0-32.0) pg MCHC 33.6 (31.0-37.0) g/dL RDW Std Deviation 49.4 (28.0-62.0) fl RDW Coeff of Leny 15 (11.0-15.0) % Plt Count 196 (150-400) K/uL MPV 10.10 (7.40-12.00) fL Neut % (Auto) 71.7 (48.0-80.0) % Lymph % (Auto) 16.1 (16.0-40.0) % [place] % (Auto) 9.2 (0.0-15.0) % Eos % (Auto) 2.8 (0.0-7.0) % Baso % (Auto) 0.2 (0.0-1.5) % Neut # (Auto) 6.4 H (1.4-5.7) K/uL Lymph # (Auto) 1.4 (0.6-2.4) K/uL [place] # (Auto) 0.8 (0.0-0.8) K/uL Eos # (Auto) 0.3 (0.0-0.7) K/uL Baso # (Auto) 0.0 (0.0-0.1) K/uL Nucleated RBC % 0.0 /100WBC Nucleated RBCs # 0 K/uL ABG pH (7.35-7.45) ABG pCO2 (35-45) mmHG ABG pO2 (75-100) mmHG ABG HCO3 (22-26) mEq/L ABG Total CO2 ABG Base Excess (-2.0-2.0) Sodium 135 L (136-148) mmol/L Potassium 5.1 (3.5-5.1) mmol/L Chloride 103 (98-107) mmol/L Carbon Dioxide 20.4 L (21.0-32.0) mmol/L BUN 57 H (7.0-18.0) mg/dL Creatinine 2.9 H (0.8-1.3) mg/dL Est Cr Clr Drug Dosing 32.84 mL/min Estimated GFR (MDRD) 22.2 ml/min Glucose 83 (74-106) mg/dL POC Glucose 74 (60-110) mg/dL Calcium 8.8 (8.5-10.1) mg/dL Total Bilirubin 0.4 (0.2-1.0) mg/dL AST 56 H (15-37) IU/L ALT 69 H (14-63) IU/L Alkaline Phosphatase 90 (46-116) U/L Creatine Kinase 1069 H (26-308) U/L Troponin I < 0.050 (0.000-0.056) ng/mL Total Protein 7.2 (6.4-8.2) g/dL Albumin 3.6 (3.4-5.0) g/dL Globulin 3.6 (2.6-4.0) g/dL Albumin/Globulin Ratio 1.0 (0.9-1.6) Lipase 187 (73-393) U/L 12/30/18 Range/Units 16:02 WBC (4.0-11.0) K/uL RBC (4.50-5.90) M/uL Hgb (13.0-17.0) g/dL Hct (38.0-50.0) % MCV (80.0-98.0) fL MCH (27.0-32.0) pg MCHC (31.0-37.0) g/dL RDW Std Deviation (28.0-62.0) fl RDW Coeff of Leny (11.0-15.0) % Plt Count (150-400) K/uL MPV (7.40-12.00) fL Neut % (Auto) (48.0-80.0) % Lymph % (Auto) (16.0-40.0) % [place] % (Auto) (0.0-15.0) % Eos % (Auto) (0.0-7.0) % Baso % (Auto) (0.0-1.5) % Neut # (Auto) (1.4-5.7) K/uL Lymph # (Auto) (0.6-2.4) K/uL [place] # (Auto) (0.0-0.8) K/uL Eos # (Auto) (0.0-0.7) K/uL Baso # (Auto) (0.0-0.1) K/uL Nucleated RBC % /100WBC Nucleated RBCs # K/uL ABG pH 7.362 (7.35-7.45) ABG pCO2 35 (35-45) mmHG ABG pO2 86 (75-100) mmHG ABG HCO3 20 L (22-26) mEq/L ABG Total CO2 18.2 ABG Base Excess -4.9 L (-2.0-2.0) Sodium (136-148) mmol/L Potassium (3.5-5.1) mmol/L Chloride (98-107) mmol/L Carbon Dioxide (21.0-32.0) mmol/L BUN (7.0-18.0) mg/dL Creatinine (0.8-1.3) mg/dL Est Cr Clr Drug Dosing mL/min Estimated GFR (MDRD) ml/min Glucose (74-106) mg/dL POC Glucose (60-110) mg/dL Calcium (8.5-10.1) mg/dL Total Bilirubin (0.2-1.0) mg/dL AST (15-37) IU/L ALT (14-63) IU/L Alkaline Phosphatase (46-116) U/L Creatine Kinase (26-308) U/L Troponin I (0.000-0.056) ng/mL Total Protein (6.4-8.2) g/dL Albumin (3.4-5.0) g/dL Globulin (2.6-4.0) g/dL Albumin/Globulin Ratio (0.9-1.6) Lipase (73-393) U/L Meds: Medications Generic Name Dose Route Start Last Admin Trade Name Freq PRN Reason Stop Dose Admin Sodium Chloride 1,000 mls @ 999 mls/hr 12/30/18 16:30 12/30/18 17:03 Normal Saline IV 12/30/18 17:30 999 mls/hr STAT ONE Administration Sodium Chloride 10 ml 12/30/18 15:25 Saline Flush FLUSH ASDIRECTED PRN Keep Vein Open Sodium Chloride 2.5 ml 12/30/18 15:25 Saline Flush FLUSH ASDIRECTED PRN Keep Vein Open Departure - Departure Time of Disposition: 17:06 Disposition: Refer to Observation Clinical Impression: Renal insufficiency Rhabdomyolysis Qualifiers: Rhabdomyolysis type: non-traumatic Qualified Code(s): M62.82 - Rhabdomyolysis - Discharge Information - My Orders Last 24 Hours: My Active Orders 12/30/18 15:25 Cardiac Monitoring [RC] . DIRECTED EKG Documentation Completion [RC] STAT UA RFX HOLDEN AND CULT IF INDIC [URIN] Stat Sodium Chloride 0.9% [Saline Flush] 10 ml FLUSH ASDIRECTED PRN Sodium Chloride 0.9% [Saline Flush] 2.5 ml FLUSH ASDIRECTED PRN Saline Lock Insert [OM.PC] Stat 12/30/18 15:26 Orthostatic Vital Signs [RC] ASDIRECTED 12/30/18 15:27 Glucose [Blood Glucose Check, Bedside] [RC] ONETIME 12/30/18 15:55 Head wo Cont [CT] Stat 12/30/18 16:30 Sodium Chloride 0.9% [Normal Saline] 1,000 ml IV STAT 12/30/18 16:59 Admission Status [Patient Status] [ADT] Stat - Assessment/Plan Last 24 Hours: My Active Orders 12/30/18 15:25 Cardiac Monitoring [RC] . DIRECTED EKG Documentation Completion [RC] STAT UA RFX HOLDEN AND CULT IF INDIC [URIN] Stat Sodium Chloride 0.9% [Saline Flush] 10 ml FLUSH ASDIRECTED PRN Sodium Chloride 0.9% [Saline Flush] 2.5 ml FLUSH ASDIRECTED PRN Saline Lock Insert [OM.PC] Stat 12/30/18 15:26 Orthostatic Vital Signs [RC] ASDIRECTED 12/30/18 15:27 Glucose [Blood Glucose Check, Bedside] [RC] ONETIME 12/30/18 15:55 Head wo Cont [CT] Stat 12/30/18 16:30 Sodium Chloride 0.9% [Normal Saline] 1,000 ml IV STAT 12/30/18 16:59 Admission Status [Patient Status] [ADT] Stat
--- NOTE | 2018-12-30 16:01 | CR ---
Indication: Dizzy, dehydration Technique: Chest 1 view Comparison: May 23, 2018 Findings: Normal cardiomediastinal silhouette. Ill-defined 9 mm round density projecting over the left upper lobe. No focal infiltrate, effusion, or pneumothorax. Osseous structures intact. Impression: : Questionable left upper lobe pulmonary nodule. Recommend chest CT for further evaluation. No acute infiltrate. Dictated by Karuna Ayala MD @ Dec 30 2018 3:58PM Signed by Dr. Karuna Ayala @ Dec 30 2018 4:00PM
[2018-12-30 16:06] LABS: CHLORIDE,CL 103 mmol/L (98-107); SODIUM,NA 135 mmol/L (136-148)
[2018-12-30] MEDS ORDERED: Sodium Chloride 0.9% 1,000 ML IV ONE (16:30)
--- NOTE | 2018-12-30 17:04 | CT ---
INDICATION: PAIN, DIZZINESS, DEHYDRATION TECHNIQUE: CT Head without contrast. COMPARISON: None. FINDINGS: CSF spaces: Within normal limits for age. Brain parenchyma: The michael-white differentiation is normal. No sign of mass, hemorrhage, or midline shift. Skull base and calvarium: The visualized paranasal sinuses and mastoid air cells are clear. The visualized orbits are grossly unremarkable. No skull fractures. IMPRESSION: Unremarkable noncontrast head CT. Please note that all CT scans at this facility use dose modulation, iterative reconstruction, and/or weight-based dosing when appropriate to reduce radiation dose to as low as reasonably achievable. Dictated by: Alfredo Wong MD @ 12/30/2018 17:04:21 (Electronically Signed)
[2018-12-30] MEDS ORDERED: Acetaminophen 325 MG Tab PO PRN (17:13)
[2018-12-30] MEDS ORDERED: Ondansetron 4 MG Tab.DIS PO PRN (17:13)
[2018-12-30] MEDS ORDERED: Heparin Sodium 5,000 Units/ML Vial SUBCUT SCH (17:15)
[2018-12-30] MEDS ORDERED: Non-Formulary Medication 1 Each (Albuterol Sulfate [Proair Respiclick] 2 PUFF) IH PRN (17:20)
--- NOTE | 2018-12-30 17:30 | PCM.HP ---
H&P History of Present Illness - General Date of Service: 12/30/18 Admit Problem/Dx: Admission Diagnosis/Problem Admission Diagnosis/Problem Rhabdomyolysis - History of Present Illness Initial Comments - Free Text/Narative: 63 y/o male with history of DM2, CAD, HTN presenting today to the ER for dehydration. Patient states that for the past week he had a bout of diverticulitis and was having diarrhea but now symptoms have resolved. States that he feels dehydrated. 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 States he has been drinking a lot of water but has not been urinating that much. Denies any history of seizures, falls, illicit drug use. States he has been having some leg cramps. Denies any headaches, change in vision ,vomiting, chest pain, dyspnea, abdominal pain, dysuria, diarrhea, constipation, edema. In the ER, he was found to be hypotensive with SBP 90's. He was started on NS. - Related Data Allergies/Adverse Reactions: Allergies Allergy/AdvReac Type Severity Reaction Status Date / Time Sulfa (Sulfonamide Allergy Other Verified 12/30/18 15:20 Antibiotics) bee stings Allergy Swelling Uncoded 12/30/18 15:20 Home Medications: Home Meds metFORMIN HCl [Metformin HCl] 1,000 mg PO BID 09/20/15 [History] Aspirin [Adult Low Dose Aspirin EC] 81 mg PO BEDTIME 12/12/15 [History] Albuterol Sulfate [Proair Respiclick] 2 puff IH Q6H PRN 12/10/17 [History] Ascorbic Acid 250 mg PO BID 12/10/17 [History] Ferrous Sulfate 325 mg PO BIDMEALS 12/10/17 [History] Liraglutide [Victoza] 0.3 ml SUBCUT DAILY 12/10/17 [History] Clindamycin HCl 300 mg PO Q8H 12/30/18 [History] Gabapentin [Neurontin] 600 mg PO TID 12/30/18 [History] Insulin Lispro [Humalog Kwikpen U-200] 100 units SQ DAILY@20 12/30/18 [History] Insulin Lispro [Humalog Kwikpen U-200] 105 units SQ DAILY 12/30/18 [History] Lisinopril 20 mg PO DAILY 12/30/18 [History] Omeprazole 40 mg PO ACBREAKFAST 12/30/18 [History] Propranolol [Inderal LA 24 Hr] 60 mg PO DAILY 12/30/18 [History] atorvaSTATin [Lipitor] 20 mg PO BEDTIME 12/30/18 [History] Past Medical History - Past Health History Medical/Surgical History: Denies Medical/Surgical History HEENT History: Reports: Allergic Rhinitis, Impaired Vision Other HEENT History: uses reading glasses Cardiovascular History: Reports: CAD, High Cholesterol, Hypertension Other Cardiovascular History: "Heart skips a beat every so often". Atypical chest pain, 40% occlusion RCA, on beta stephen and nitrates. 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 Hematologic History: Reports: None Immunologic History: Reports: None Oncologic (Cancer) History: Reports: None Dermatologic History: Reports: None - Infectious Disease History Infectious Disease History: Reports: Chicken Pox, Measles, Mumps - Past Surgical History Head Surgeries/Procedures: Reports: None HEENT Surgical History: Reports: Oral Surgery Male Surgical History: Reports: Varicocele Resection Musculoskeletal Surgical History: Reports: Knee Replacement, Shoulder Surgery Other Musculoskeletal Surgeries/Procedures:: total knee x 2/ Rotator cuff surgery right shoulder. Social & Family History - Family History Family Medical History: Noncontributory HEENT: Reports: Cataract Cardiac: Reports: Bypass, CAD, [place] Endocrine/Metabolic: Reports: Diabetes, type II Oncologic: Reports: Lung, Prostate - Tobacco Use Smoking Status *Q: Never Smoker - Caffeine Use Caffeine Use: Reports: None Other Caffeine Use: 1 cup coffee and 1 Diet Mountain Dew per day Caffeine Use Comment: 1cup/day - Recreational Drug Use Recreational Drug Use: No H&P Review of Systems - Review of Systems: Review Of Systems: See Below Exam - Exam Exam: See Below - Vital Signs Vital Signs: Last Vital Signs Temp 36.8 C 12/30/18 15:20 Pulse 81 12/30/18 15:20 Resp 18 12/30/18 15:20 BP 118/61 12/30/18 15:20 Pulse Ox 95 12/30/18 15:20 Orthostatic Blood Pressure [ 103/64 Standing] Orthostatic Blood Pressure [ 95/55 Sitting] Orthostatic Blood Pressure [ 91/54 Supine] Weight: 136.078 kg - Exam General: Alert, Oriented, Cooperative HEENT: Other (dry oral mucosa) Lungs: Clear to Auscultation, Normal Respiratory Effort. No: Crackles, Wheezing Cardiovascular: Regular Rate, Regular Rhythm GI/Abdominal Exam: Normal Bowel Sounds, Soft, Non-Tender, No Distention Extremities: Non-Tender, No Pedal Edema Skin: Warm, Dry Neuro Extensive - Mental Status: Alert, Oriented x3 - Patient Data Lab Results Last 24 hrs: Laboratory Results - last 24 hr 12/30/18 12/30/18 12/30/18 Range/Units 15:34 15:34 15:39 WBC 8.89 (4.0-11.0) K/uL RBC 4.15 L (4.50-5.90) M/uL Hgb 12.4 L (13.0-17.0) g/dL Hct 36.9 L (38.0-50.0) % MCV 88.9 (80.0-98.0) fL MCH 29.9 (27.0-32.0) pg MCHC 33.6 (31.0-37.0) g/dL RDW Std Deviation 49.4 (28.0-62.0) fl RDW Coeff of Leny 15 (11.0-15.0) % Plt Count 196 (150-400) K/uL MPV 10.10 (7.40-12.00) fL Neut % (Auto) 71.7 (48.0-80.0) % Lymph % (Auto) 16.1 (16.0-40.0) % [place] % (Auto) 9.2 (0.0-15.0) % Eos % (Auto) 2.8 (0.0-7.0) % Baso % (Auto) 0.2 (0.0-1.5) % Neut # (Auto) 6.4 H (1.4-5.7) K/uL Lymph # (Auto) 1.4 (0.6-2.4) K/uL [place] # (Auto) 0.8 (0.0-0.8) K/uL Eos # (Auto) 0.3 (0.0-0.7) K/uL Baso # (Auto) 0.0 (0.0-0.1) K/uL Nucleated RBC % 0.0 /100WBC Nucleated RBCs # 0 K/uL ABG pH (7.35-7.45) ABG pCO2 (35-45) mmHG ABG pO2 (75-100) mmHG ABG HCO3 (22-26) mEq/L ABG Total CO2 ABG Base Excess (-2.0-2.0) Sodium 135 L (136-148) mmol/L Potassium 5.1 (3.5-5.1) mmol/L Chloride 103 (98-107) mmol/L Carbon Dioxide 20.4 L (21.0-32.0) mmol/L BUN 57 H (7.0-18.0) mg/dL Creatinine 2.9 H (0.8-1.3) mg/dL Est Cr Clr Drug Dosing 32.84 mL/min Estimated GFR (MDRD) 22.2 ml/min Glucose 83 (74-106) mg/dL POC Glucose 74 (60-110) mg/dL Calcium 8.8 (8.5-10.1) mg/dL Total Bilirubin 0.4 (0.2-1.0) mg/dL AST 56 H (15-37) IU/L ALT 69 H (14-63) IU/L Alkaline Phosphatase 90 (46-116) U/L Creatine Kinase 1069 H (26-308) U/L Troponin I < 0.050 (0.000-0.056) ng/mL Total Protein 7.2 (6.4-8.2) g/dL Albumin 3.6 (3.4-5.0) g/dL Globulin 3.6 (2.6-4.0) g/dL Albumin/Globulin Ratio 1.0 (0.9-1.6) Lipase 187 (73-393) U/L 12/30/18 Range/Units 16:02 WBC (4.0-11.0) K/uL RBC (4.50-5.90) M/uL Hgb (13.0-17.0) g/dL Hct (38.0-50.0) % MCV (80.0-98.0) fL MCH (27.0-32.0) pg MCHC (31.0-37.0) g/dL RDW Std Deviation (28.0-62.0) fl RDW Coeff of Leny (11.0-15.0) % Plt Count (150-400) K/uL MPV (7.40-12.00) fL Neut % (Auto) (48.0-80.0) % Lymph % (Auto) (16.0-40.0) % [place] % (Auto) (0.0-15.0) % Eos % (Auto) (0.0-7.0) % Baso % (Auto) (0.0-1.5) % Neut # (Auto) (1.4-5.7) K/uL Lymph # (Auto) (0.6-2.4) K/uL [place] # (Auto) (0.0-0.8) K/uL Eos # (Auto) (0.0-0.7) K/uL Baso # (Auto) (0.0-0.1) K/uL Nucleated RBC % /100WBC Nucleated RBCs # K/uL ABG pH 7.362 (7.35-7.45) ABG pCO2 35 (35-45) mmHG ABG pO2 86 (75-100) mmHG ABG HCO3 20 L (22-26) mEq/L ABG Total CO2 18.2 ABG Base Excess -4.9 L (-2.0-2.0) Sodium (136-148) mmol/L Potassium (3.5-5.1) mmol/L Chloride (98-107) mmol/L Carbon Dioxide (21.0-32.0) mmol/L BUN (7.0-18.0) mg/dL Creatinine (0.8-1.3) mg/dL Est Cr Clr Drug Dosing mL/min Estimated GFR (MDRD) ml/min Glucose (74-106) mg/dL POC Glucose (60-110) mg/dL Calcium (8.5-10.1) mg/dL Total Bilirubin (0.2-1.0) mg/dL AST (15-37) IU/L ALT (14-63) IU/L Alkaline Phosphatase (46-116) U/L Creatine Kinase (26-308) U/L Troponin I (0.000-0.056) ng/mL Total Protein (6.4-8.2) g/dL Albumin (3.4-5.0) g/dL Globulin (2.6-4.0) g/dL Albumin/Globulin Ratio (0.9-1.6) Lipase (73-393) U/L Result Diagrams: 12/30/18 15:34 12/30/18 15:34 Problem List Initiated/Reviewed/Updated: Yes Orders Last 24hrs: Active Orders 24 hr Category Date Time Status Admission Status [Patient Status] [ADT] Stat ADT 12/30/18 16:59 Active Cardiac Monitoring [RC] . DIRECTED Care 12/30/18 15:25 Active EKG Documentation Completion [RC] STAT Care 12/30/18 15:25 Active Glucose [Blood Glucose Check, Bedside] [RC] ONETIME Care 12/30/18 15:27 Active Intake and Output [RC] QSHIFT Care 12/30/18 17:14 Active Orthostatic Vital Signs [RC] ASDIRECTED Care 12/30/18 15:26 Active Up ad Miya [RC] ASDIRECTED Care 12/30/18 17:13 Active VTE/DVT Education [RC] PER UNIT ROUTINE Care 12/30/18 17:13 Active Vital Signs [RC] Q4H Care 12/30/18 17:13 Active [employer] Diet [DIET] Diet 12/30/18 Breakfast Active DRUG SCREEN, URINE [URCHEM] Routine Lab 12/30/18 17:16 Ordered TSH [CHEM] Routine Lab 12/30/18 15:34 Received UA RFX HOLDEN AND CULT IF INDIC [URIN] Stat Lab 12/30/18 15:25 Ordered Acetaminophen [Tylenol] Med 12/30/18 17:13 Active 650 mg PO Q4H PRN Albuterol Sulfate [Proair Respiclick] Med 12/30/18 17:20 Active 2 puff IH Q6H PRN Gabapentin Med 12/30/18 22:00 Active 600 mg PO TID Heparin Sodium Med 12/30/18 17:15 Active 5,000 units SUBCUT Q8H Insulin Lispro [Humalog Kwikpen U-200] Med 12/31/18 09:00 Active 105 units SQ DAILY Insulin Lispro [Humalog Kwikpen U-200] Med 12/30/18 20:00 Active 50 units SQ DAILY@20 Liraglutide Med 12/31/18 09:00 Active 0.3 ml SUBCUT DAILY Omeprazole Med 12/31/18 07:30 Active 40 mg PO ACBREAKFAST Ondansetron [Zofran ODT] Med 12/30/18 17:13 Active 4 mg PO Q4H PRN Sodium Chloride 0.9% [Normal Saline] 1,000 ml Med 12/30/18 17:30 Active IV CONTINUOUS Sodium Chloride 0.9% [Saline Flush] Med 12/30/18 15:25 Active 10 ml FLUSH ASDIRECTED PRN Sodium Chloride 0.9% [Saline Flush] Med 12/30/18 15:25 Active 2.5 ml FLUSH ASDIRECTED PRN Saline Lock Insert [OM.PC] Stat Oth 12/30/18 15:25 Ordered Resuscitation Status Routine Resus Stat 12/30/18 17:13 Ordered Medication Orders Acetaminophen (Tylenol) 650 mg PO Q4H PRN PRN Reason: Pain (Mild 1-3)/fever Heparin Sodium (Porcine) (Heparin Sodium) 5,000 units SUBCUT Q8H NIYAH Sodium Chloride (Normal Saline) 1,000 mls @ 200 mls/hr IV CONTINUOUS NIYAH Non-Formulary Medication (Albuterol Sulfate [Proair Respiclick]) 2 puff IH Q6H PRN PRN Reason: breathing Non-Formulary Medication (Gabapentin) 600 mg PO TID NIYAH Non-Formulary Medication (Insulin Lispro [Humalog Kwikpen U-200]) 50 units SQ DAILY@20 NIYAH Non-Formulary Medication (Insulin Lispro [Humalog Kwikpen U-200]) 105 units SQ DAILY NIYAH Non-Formulary Medication (Liraglutide) 0.3 ml SUBCUT DAILY NIYAH Omeprazole (Omeprazole) 40 mg PO ACBREAKFAST NIYAH Ondansetron HCl (Zofran Odt) 4 mg PO Q4H PRN PRN Reason: nausea, able to take PO Sodium Chloride (Saline Flush) 10 ml FLUSH ASDIRECTED PRN PRN Reason: Keep Vein Open Sodium Chloride (Saline Flush) 2.5 ml FLUSH ASDIRECTED PRN PRN Reason: Keep Vein Open Assessment/Plan Comment:: A: 1. Rhabdomyolysis 2. Acute on chronic kidney injury 3. Hypotension 4. Mild elevated liver enzymes 5. PMH DM2, dyslipidemia, HTN P: 1. Rhabdomyolysis- unknown etiology. May be due to statin use. Will check urine drug screen. Continue with NS at 200 ml/hr continuous. Will recheck CK tomorrow. 2. Acute on chronic kidney injury- likely 2/2 to his dehydration and rhabdo. Will hydrate and monitor kidney function. 3. Hypotension- continue with IV NS hydration. Holding antihypertension medications. 4. DM2- will hold on his home insulin and start ISS in the hospital and see how he does overnight to make sure he does not become hypoglycemic. Will confirm home insulin and dose. Dispo: 1-2 days
[2018-12-30] MEDS: Sodium Chloride 0.9% 1,000 ML IV SCH ×3 (18:03→23:28)
[2018-12-30] MEDS ORDERED: INSULIN LISPRO 50 UNIT SQ SCH (20:00)
[2018-12-30] MEDS ORDERED: Albuterol 8 GM Inhaler INH PRN (21:54)
[2018-12-30] MEDS: Gabapentin 300 MG Cap PO SCH (21:59)
[2018-12-30] MEDS ORDERED: Non-Formulary Medication 1 Each (Gabapentin 600 MG) PO SCH (22:00)
[2018-12-30] MEDS ORDERED: Insulin Aspart 100 Units/ML 3 ML Pen SUBCUT STA (22:08)
[2018-12-31] MEDS: Sodium Chloride 0.9% 1,000 ML IV SCH ×4 (04:26→23:50)
[2018-12-31] MEDS: Gabapentin 300 MG Cap PO SCH ×3 (05:45→21:25)
[2018-12-31] MEDS: Heparin Sodium 5,000 Units/ML Vial SUBCUT SCH ×3 (05:45→21:24)
[2018-12-31] MEDS: Omeprazole 20 MG Cap.CR PO SCH (06:50)
[2018-12-31] MEDS: Insulin Aspart 100 Units/ML 3 ML Pen SUBCUT SCH ×3 (08:08→18:16)
[2018-12-31] MEDS ORDERED: INSULIN LISPRO SQ SCH (09:00)
[2018-12-31] MEDS ORDERED: LIRAGLUTIDE SUBCUT SCH (09:00)
--- NOTE | 2018-12-31 10:16 | PCM.PN ---
- General Info Date of Service: 12/31/18 - Review of Systems Systems Review Comment:: feeling better - Patient Data Vitals - Most Recent: Last Vital Signs Temp 36.7 C 12/31/18 07:18 Pulse 91 12/31/18 07:18 Resp 16 12/31/18 07:18 BP 128/70 12/31/18 07:18 Pulse Ox 95 12/31/18 07:18 Orthostatic Blood Pressure [ 103/64 Standing] Orthostatic Blood Pressure [ 95/55 Sitting] Orthostatic Blood Pressure [ 91/54 Supine] Weight - Most Recent: 136.078 kg I&O - Last 24 Hours: Intake & Output 12/30/18 12/31/18 12/31/18 22:59 06:59 14:59 Intake Total 3151 240 Output Total 2175 Balance 976 240 Lab Results Last 24 Hours: Laboratory Results - last 24 hr 12/30/18 12/30/18 12/30/18 Range/Units 15:34 15:34 15:34 WBC 8.89 (4.0-11.0) K/uL RBC 4.15 L (4.50-5.90) M/uL Hgb 12.4 L (13.0-17.0) g/dL Hct 36.9 L (38.0-50.0) % MCV 88.9 (80.0-98.0) fL MCH 29.9 (27.0-32.0) pg MCHC 33.6 (31.0-37.0) g/dL RDW Std Deviation 49.4 (28.0-62.0) fl RDW Coeff of Leny 15 (11.0-15.0) % Plt Count 196 (150-400) K/uL MPV 10.10 (7.40-12.00) fL Neut % (Auto) 71.7 (48.0-80.0) % Lymph % (Auto) 16.1 (16.0-40.0) % [place] % (Auto) 9.2 (0.0-15.0) % Eos % (Auto) 2.8 (0.0-7.0) % Baso % (Auto) 0.2 (0.0-1.5) % Neut # (Auto) 6.4 H (1.4-5.7) K/uL Lymph # (Auto) 1.4 (0.6-2.4) K/uL [place] # (Auto) 0.8 (0.0-0.8) K/uL Eos # (Auto) 0.3 (0.0-0.7) K/uL Baso # (Auto) 0.0 (0.0-0.1) K/uL Nucleated RBC % 0.0 /100WBC Nucleated RBCs # 0 K/uL ABG pH (7.35-7.45) ABG pCO2 (35-45) mmHG ABG pO2 (75-100) mmHG ABG HCO3 (22-26) mEq/L ABG Total CO2 ABG Base Excess (-2.0-2.0) Sodium 135 L (136-148) mmol/L Potassium 5.1 (3.5-5.1) mmol/L Chloride 103 (98-107) mmol/L Carbon Dioxide 20.4 L (21.0-32.0) mmol/L BUN 57 H (7.0-18.0) mg/dL Creatinine 2.9 H (0.8-1.3) mg/dL Est Cr Clr Drug Dosing 32.84 mL/min Estimated GFR (MDRD) 22.2 ml/min Glucose 83 (74-106) mg/dL POC Glucose (60-110) mg/dL Calcium 8.8 (8.5-10.1) mg/dL Total Bilirubin 0.4 (0.2-1.0) mg/dL AST 56 H (15-37) IU/L ALT 69 H (14-63) IU/L Alkaline Phosphatase 90 (46-116) U/L Creatine Kinase 1069 H (26-308) U/L Troponin I < 0.050 (0.000-0.056) ng/mL Total Protein 7.2 (6.4-8.2) g/dL Albumin 3.6 (3.4-5.0) g/dL Globulin 3.6 (2.6-4.0) g/dL Albumin/Globulin Ratio 1.0 (0.9-1.6) Lipase 187 (73-393) U/L TSH 3rd Generation 0.92 (0.36-3.74) uIU/mL Urine Color Urine Appearance Urine pH (5.0-8.0) Ur Specific Ever[place] (1.001-1.035) Urine Protein (NEGATIVE) mg/dL Urine Glucose (UA) (NEGATIVE) mg/dL Urine Ketones (NEGATIVE) mg/dL Urine Occult Blood (NEGATIVE) Urine Nitrite (NEGATIVE) Urine Bilirubin (NEGATIVE) Urine Urobilinogen (<2.0) EU/dL Ur Leukocyte Esterase (NEGATIVE) Urine Opiates Screen (NEGATIVE) Ur Oxycodone Screen (NEGATIVE) Urine Methadone Screen (NEGATIVE) Ur Barbiturates Screen (NEGATIVE) Ur Phencyclidine Scrn (NEGATIVE) Ur Amphetamine Screen (NEGATIVE) U Methamphetamines Scrn (NEGATIVE) U Benzodiazepines Scrn (NEGATIVE) U Cocaine Metab Screen (NEGATIVE) U Marijuana (THC) Screen (NEGATIVE) 12/30/18 12/30/18 12/30/18 Range/Units 15:39 16:02 17:45 WBC (4.0-11.0) K/uL RBC (4.50-5.90) M/uL Hgb (13.0-17.0) g/dL Hct (38.0-50.0) % MCV (80.0-98.0) fL MCH (27.0-32.0) pg MCHC (31.0-37.0) g/dL RDW Std Deviation (28.0-62.0) fl RDW Coeff of Leny (11.0-15.0) % Plt Count (150-400) K/uL MPV (7.40-12.00) fL Neut % (Auto) (48.0-80.0) % Lymph % (Auto) (16.0-40.0) % [place] % (Auto) (0.0-15.0) % Eos % (Auto) (0.0-7.0) % Baso % (Auto) (0.0-1.5) % Neut # (Auto) (1.4-5.7) K/uL Lymph # (Auto) (0.6-2.4) K/uL [place] # (Auto) (0.0-0.8) K/uL Eos # (Auto) (0.0-0.7) K/uL Baso # (Auto) (0.0-0.1) K/uL Nucleated RBC % /100WBC Nucleated RBCs # K/uL ABG pH 7.362 (7.35-7.45) ABG pCO2 35 (35-45) mmHG ABG pO2 86 (75-100) mmHG ABG HCO3 20 L (22-26) mEq/L ABG Total CO2 18.2 ABG Base Excess -4.9 L (-2.0-2.0) Sodium (136-148) mmol/L Potassium (3.5-5.1) mmol/L Chloride (98-107) mmol/L Carbon Dioxide (21.0-32.0) mmol/L BUN (7.0-18.0) mg/dL Creatinine (0.8-1.3) mg/dL Est Cr Clr Drug Dosing mL/min Estimated GFR (MDRD) ml/min Glucose (74-106) mg/dL POC Glucose 74 (60-110) mg/dL Calcium (8.5-10.1) mg/dL Total Bilirubin (0.2-1.0) mg/dL AST (15-37) IU/L ALT (14-63) IU/L Alkaline Phosphatase (46-116) U/L Creatine Kinase (26-308) U/L Troponin I (0.000-0.056) ng/mL Total Protein (6.4-8.2) g/dL Albumin (3.4-5.0) g/dL Globulin (2.6-4.0) g/dL Albumin/Globulin Ratio (0.9-1.6) Lipase (73-393) U/L TSH 3rd Generation (0.36-3.74) uIU/mL Urine Color YELLOW Urine Appearance CLEAR Urine pH 5.5 (5.0-8.0) Ur Specific [place] 1.025 (1.001-1.035) Urine Protein NEGATIVE (NEGATIVE) mg/dL Urine Glucose (UA) NEGATIVE (NEGATIVE) mg/dL Urine Ketones NEGATIVE (NEGATIVE) mg/dL Urine Occult Blood NEGATIVE (NEGATIVE) Urine Nitrite NEGATIVE (NEGATIVE) Urine Bilirubin NEGATIVE (NEGATIVE) Urine Urobilinogen 0.2 (<2.0) EU/dL Ur Leukocyte Esterase NEGATIVE (NEGATIVE) Urine Opiates Screen (NEGATIVE) Ur Oxycodone Screen (NEGATIVE) Urine Methadone Screen (NEGATIVE) Ur Barbiturates Screen (NEGATIVE) Ur Phencyclidine Scrn (NEGATIVE) Ur Amphetamine Screen (NEGATIVE) U Methamphetamines Scrn (NEGATIVE) U Benzodiazepines Scrn (NEGATIVE) U Cocaine Metab Screen (NEGATIVE) U Marijuana (THC) Screen (NEGATIVE) 12/30/18 12/30/18 12/30/18 Range/Units 17:45 18:30 21:03 WBC (4.0-11.0) K/uL RBC (4.50-5.90) M/uL Hgb (13.0-17.0) g/dL Hct (38.0-50.0) % MCV (80.0-98.0) fL MCH (27.0-32.0) pg MCHC (31.0-37.0) g/dL RDW Std Deviation (28.0-62.0) fl RDW Coeff of Leny (11.0-15.0) % Plt Count (150-400) K/uL MPV (7.40-12.00) fL Neut % (Auto) (48.0-80.0) % Lymph % (Auto) (16.0-40.0) % [place] % (Auto) (0.0-15.0) % Eos % (Auto) (0.0-7.0) % Baso % (Auto) (0.0-1.5) % Neut # (Auto) (1.4-5.7) K/uL Lymph # (Auto) (0.6-2.4) K/uL [place] # (Auto) (0.0-0.8) K/uL Eos # (Auto) (0.0-0.7) K/uL Baso # (Auto) (0.0-0.1) K/uL Nucleated RBC % /100WBC Nucleated RBCs # K/uL ABG pH (7.35-7.45) ABG pCO2 (35-45) mmHG ABG pO2 (75-100) mmHG ABG HCO3 (22-26) mEq/L ABG Total CO2 ABG Base Excess (-2.0-2.0) Sodium (136-148) mmol/L Potassium (3.5-5.1) mmol/L Chloride (98-107) mmol/L Carbon Dioxide (21.0-32.0) mmol/L BUN (7.0-18.0) mg/dL Creatinine (0.8-1.3) mg/dL Est Cr Clr Drug Dosing mL/min Estimated GFR (MDRD) ml/min Glucose (74-106) mg/dL POC Glucose 45 L 240 H (60-110) mg/dL Calcium (8.5-10.1) mg/dL Total Bilirubin (0.2-1.0) mg/dL AST (15-37) IU/L ALT (14-63) IU/L Alkaline Phosphatase (46-116) U/L Creatine Kinase (26-308) U/L Troponin I (0.000-0.056) ng/mL Total Protein (6.4-8.2) g/dL Albumin (3.4-5.0) g/dL Globulin (2.6-4.0) g/dL Albumin/Globulin Ratio (0.9-1.6) Lipase (73-393) U/L TSH 3rd Generation (0.36-3.74) uIU/mL Urine Color Urine Appearance Urine pH (5.0-8.0) Ur Specific [place] (1.001-1.035) Urine Protein (NEGATIVE) mg/dL Urine Glucose (UA) (NEGATIVE) mg/dL Urine Ketones (NEGATIVE) mg/dL Urine Occult Blood (NEGATIVE) Urine Nitrite (NEGATIVE) Urine Bilirubin (NEGATIVE) Urine Urobilinogen (<2.0) EU/dL Ur Leukocyte Esterase (NEGATIVE) Urine Opiates Screen NEGATIVE (NEGATIVE) Ur Oxycodone Screen NEGATIVE (NEGATIVE) Urine Methadone Screen NEGATIVE (NEGATIVE) Ur Barbiturates Screen NEGATIVE (NEGATIVE) Ur Phencyclidine Scrn NEGATIVE (NEGATIVE) Ur Amphetamine Screen NEGATIVE (NEGATIVE) U Methamphetamines Scrn NEGATIVE (NEGATIVE) U Benzodiazepines Scrn NEGATIVE (NEGATIVE) U Cocaine Metab Screen NEGATIVE (NEGATIVE) U Marijuana (THC) Screen NEGATIVE (NEGATIVE) 12/31/18 12/31/18 12/31/18 Range/Units 05:44 05:44 06:30 WBC 4.53 (4.0-11.0) K/uL RBC 3.80 L (4.50-5.90) M/uL Hgb 11.1 L (13.0-17.0) g/dL Hct 34.4 L (38.0-50.0) % MCV 90.5 (80.0-98.0) fL MCH 29.2 (27.0-32.0) pg MCHC 32.3 (31.0-37.0) g/dL RDW Std Deviation 50.6 (28.0-62.0) fl RDW Coeff of Leny 15 (11.0-15.0) % Plt Count 130 L (150-400) K/uL MPV 9.00 (7.40-12.00) fL Neut % (Auto) (48.0-80.0) % Lymph % (Auto) (16.0-40.0) % [place] % (Auto) (0.0-15.0) % Eos % (Auto) (0.0-7.0) % Baso % (Auto) (0.0-1.5) % Neut # (Auto) (1.4-5.7) K/uL Lymph # (Auto) (0.6-2.4) K/uL [place] # (Auto) (0.0-0.8) K/uL Eos # (Auto) (0.0-0.7) K/uL Baso # (Auto) (0.0-0.1) K/uL Nucleated RBC % 0.0 /100WBC Nucleated RBCs # 0 K/uL ABG pH (7.35-7.45) ABG pCO2 (35-45) mmHG ABG pO2 (75-100) mmHG ABG HCO3 (22-26) mEq/L ABG Total CO2 ABG Base Excess (-2.0-2.0) Sodium 141 (136-148) mmol/L Potassium 4.7 (3.5-5.1) mmol/L Chloride 109 H (98-107) mmol/L Carbon Dioxide 23.0 (21.0-32.0) mmol/L BUN 48 H (7.0-18.0) mg/dL Creatinine 2.2 H (0.8-1.3) mg/dL Est Cr Clr Drug Dosing 43.29 mL/min Estimated GFR (MDRD) 30.6 ml/min Glucose 197 H (74-106) mg/dL POC Glucose 220 H (60-110) mg/dL Calcium 8.1 L (8.5-10.1) mg/dL Total Bilirubin 0.2 (0.2-1.0) mg/dL AST 37 (15-37) IU/L ALT 57 (14-63) IU/L Alkaline Phosphatase 125 H (46-116) U/L Creatine Kinase 593 H (26-308) U/L Troponin I (0.000-0.056) ng/mL Total Protein 6.3 L (6.4-8.2) g/dL Albumin 3.0 L (3.4-5.0) g/dL Globulin 3.3 (2.6-4.0) g/dL Albumin/Globulin Ratio 0.9 (0.9-1.6) Lipase (73-393) U/L TSH 3rd Generation (0.36-3.74) uIU/mL Urine Color Urine Appearance Urine pH (5.0-8.0) Ur Specific [place] (1.001-1.035) Urine Protein (NEGATIVE) mg/dL Urine Glucose (UA) (NEGATIVE) mg/dL Urine Ketones (NEGATIVE) mg/dL Urine Occult Blood (NEGATIVE) Urine Nitrite (NEGATIVE) Urine Bilirubin (NEGATIVE) Urine Urobilinogen (<2.0) EU/dL Ur Leukocyte Esterase (NEGATIVE) Urine Opiates Screen (NEGATIVE) Ur Oxycodone Screen (NEGATIVE) Urine Methadone Screen (NEGATIVE) Ur Barbiturates Screen (NEGATIVE) Ur Phencyclidine Scrn (NEGATIVE) Ur Amphetamine Screen (NEGATIVE) U Methamphetamines Scrn (NEGATIVE) U Benzodiazepines Scrn (NEGATIVE) U Cocaine Metab Screen (NEGATIVE) U Marijuana (THC) Screen (NEGATIVE) Med Orders - Current: Current Medications Acetaminophen (Tylenol) 650 mg PO Q4H PRN PRN Reason: Pain (Mild 1-3)/fever Albuterol (Ventolin Hfa) 0 gm INH Q6H PRN PRN Reason: breathing Gabapentin (Neurontin) 600 mg PO TID [facility] Last Admin: 12/31/18 05:45 Dose: 600 mg Heparin Sodium (Porcine) (Heparin Sodium) 5,000 units SUBCUT Q8H NIYAH Last Admin: 12/31/18 05:45 Dose: 5,000 units Sodium Chloride (Normal Saline) 1,000 mls @ 125 mls/hr IV CONTINUOUS NIYAH Last Admin: 12/31/18 09:32 Dose: 200 mls/hr Insulin Aspart (Novolog) 0 unit SUBCUT TIDAC NIYAH; Protocol Last Admin: 12/31/18 08:08 Dose: 6 units Omeprazole (Omeprazole) 40 mg PO ACBREAKFAST NIYAH Last Admin: 12/31/18 06:50 Dose: 40 mg Ondansetron HCl (Zofran Odt) 4 mg PO Q4H PRN PRN Reason: nausea, able to take PO Sodium Chloride (Saline Flush) 10 ml FLUSH ASDIRECTED PRN PRN Reason: Keep Vein Open Sodium Chloride (Saline Flush) 2.5 ml FLUSH ASDIRECTED PRN PRN Reason: Keep Vein Open Discontinued Medications Heparin Sodium (Porcine) (Heparin Sodium) 5,000 units SUBCUT Q8H NIYAH Last Admin: 12/30/18 18:16 Dose: 5,000 units Sodium Chloride (Normal Saline) 1,000 mls @ 999 mls/hr IV STAT ONE Stop: 12/30/18 17:30 Last Admin: 12/30/18 17:03 Dose: 999 mls/hr Insulin Aspart (Novolog) 6 unit SUBCUT NOW STA Stop: 12/30/18 22:09 Last Admin: 12/30/18 22:19 Dose: 6 unit Non-Formulary Medication (Albuterol Sulfate [Proair Respiclick]) 2 puff IH Q6H PRN PRN Reason: breathing Non-Formulary Medication (Insulin Lispro [Humalog Kwikpen U-200]) 50 units SQ DAILY@20 NIYAH Non-Formulary Medication (Insulin Lispro [Humalog Kwikpen U-200]) 105 units SQ DAILY NIYAH Non-Formulary Medication (Liraglutide) 0.3 ml SUBCUT DAILY NIYAH - Exam General: Alert, Oriented HEENT: Mucous Membr. Moist/[place] Neck: Supple Lungs: Clear to Auscultation, Normal Respiratory Effort Cardiovascular: Regular Rate, Regular Rhythm GI/Abdominal Exam: Normal Bowel Sounds, Soft, Non-Tender Extremities: Non-Tender, No Pedal Edema Skin: Warm, Dry, Intact Neurological: No New Focal Deficit - Problem List Review Problem List Initiated/Reviewed/Updated: Yes - My Orders Last 24 Hours: My Active Orders 01/01/19 05:11 BASIC METABOLIC PANEL,BMP [CHEM] AM CBC WITH AUTO DIFF [HEME] AM CPK [CREATINE KINASE,CK] [CHEM] AM 01/02/19 05:11 BASIC METABOLIC PANEL,BMP [CHEM] AM CBC WITH AUTO DIFF [HEME] AM CPK [CREATINE KINASE,CK] [CHEM] AM - Plan Plan:: 63 yo male admitted with heat exhaustion, dehydration dn acute kidney injury. His creatinine has improved to 2.2. We will continue IV fluid and monitoring kidney function.
[2018-12-31] MEDS ORDERED: INSULIN REGULAR HUMAN 70 UNIT SUBCUT SCH (21:00)
[2019-01-01 06:29] LABS: CHLORIDE,CL 109 mmol/L (98-107); SODIUM,NA 140 mmol/L (136-148)
[2019-01-01] MEDS: Heparin Sodium 5,000 Units/ML Vial SUBCUT SCH (06:44)
[2019-01-01] MEDS: Omeprazole 20 MG Cap.CR PO SCH (06:52)
[2019-01-01] MEDS: Gabapentin 300 MG Cap PO SCH (06:53)
[2019-01-01 07:23] VITALS: BP 175/80
[2019-01-01] MEDS: Insulin Aspart 100 Units/ML 3 ML Pen SUBCUT SCH (08:42)
[2019-01-01] MEDS ORDERED: LIRAGLUTIDE SUBCUT SCH (09:00)
[2019-01-01] MEDS ORDERED: Insulin Regular, Human 100 Units/ML 10 ML Vial SUBCUT ONE (09:00)
[2019-01-01 09:58] LABS: CHLORIDE,CL 108 mmol/L (98-107); SODIUM,NA 138 mmol/L (136-148)
--- NOTE | 2019-01-01 22:51 | PCM.DCSUM1 ---
Discharge Summary - Discharge Data Discharge Disposition: Home, Self-Care 01 Condition: Stable - Discharge Plan Home Medications: Home Meds metFORMIN HCl [Metformin HCl] 1,000 mg PO BID 09/20/15 [History] Aspirin [Adult Low Dose Aspirin EC] 81 mg PO BEDTIME 12/12/15 [History] Albuterol Sulfate [Proair Respiclick] 2 puff IH Q6H PRN 12/10/17 [History] Ascorbic Acid 250 mg PO BID 12/10/17 [History] Ferrous Sulfate 325 mg PO BIDMEALS 12/10/17 [History] Liraglutide [Victoza] 1.8 mg SUBCUT DAILY 12/10/17 [History] Clindamycin HCl 300 mg PO Q12HR 12/30/18 [History] Gabapentin [Neurontin] 600 mg PO TID 12/30/18 [History] Insulin Regular, Human [Humulin R U-500 Kwikpen] 105 unit SQ DAILY 12/30/18 [ History] Lisinopril 20 mg PO DAILY 12/30/18 [History] Omeprazole 20 mg PO BID 12/30/18 [History] Propranolol [Inderal LA 24 Hr] 60 mg PO DAILY 12/30/18 [History] atorvaSTATin [Lipitor] 20 mg PO BEDTIME 12/30/18 [History] metroNIDAZOLE 250 mg PO TID 12/30/18 [History] Patient Handouts: Insulin Treatment for Diabetes Mellitus, Rhabdomyolysis, Chronic Kidney Disease, Adult - Patient Data Vitals - Most Recent: Last Vital Signs Temp 36.8 C 01/01/19 07:00 Pulse 94 01/01/19 07:00 Resp 16 01/01/19 07:00 BP 175/80 H 01/01/19 07:00 Pulse Ox 98 01/01/19 07:00 Orthostatic Blood Pressure [ 103/64 Standing] Orthostatic Blood Pressure [ 95/55 Sitting] Orthostatic Blood Pressure [ 91/54 Supine] Weight - Most Recent: 136.078 kg I&O - Last 24 hours: Intake & Output 01/01/19 01/01/19 01/01/19 06:59 14:59 22:59 Intake Total 3581 1450 Output Total 2525 900 Balance 1056 550 Lab Results - Last 24 hrs: Laboratory Results - last 24 hr 12/31/18 01/01/19 01/01/19 Range/Units 20:36 05:43 05:43 WBC 4.31 (4.0-11.0) K/uL RBC 3.84 L (4.50-5.90) M/uL Hgb 11.3 L (13.0-17.0) g/dL Hct 35.1 L (38.0-50.0) % MCV 91.4 (80.0-98.0) fL MCH 29.4 (27.0-32.0) pg MCHC 32.2 (31.0-37.0) g/dL RDW Std Deviation 51.4 (28.0-62.0) fl RDW Coeff of Leny 15 (11.0-15.0) % Plt Count 118 L (150-400) K/uL MPV 8.90 (7.40-12.00) fL Neut % (Auto) 65.0 (48.0-80.0) % Lymph % (Auto) 24.6 (16.0-40.0) % [place] % (Auto) 6.5 (0.0-15.0) % Eos % (Auto) 3.7 (0.0-7.0) % Baso % (Auto) 0.2 (0.0-1.5) % Neut # (Auto) 2.8 (1.4-5.7) K/uL Lymph # (Auto) 1.1 (0.6-2.4) K/uL [place] # (Auto) 0.3 (0.0-0.8) K/uL Eos # (Auto) 0.2 (0.0-0.7) K/uL Baso # (Auto) 0.0 (0.0-0.1) K/uL Nucleated RBC % 0.0 /100WBC Nucleated RBCs # 0 K/uL Sodium 140 (136-148) mmol/L Potassium 5.8 H (3.5-5.1) mmol/L Chloride 109 H (98-107) mmol/L Carbon Dioxide 26.1 (21.0-32.0) mmol/L BUN 28 H (7.0-18.0) mg/dL Creatinine 1.2 (0.8-1.3) mg/dL Est Cr Clr Drug Dosing 79.37 mL/min Estimated GFR (MDRD) > 60.0 ml/min Glucose 143 H (74-106) mg/dL POC Glucose 204 H (60-110) mg/dL Calcium 8.4 L (8.5-10.1) mg/dL Creatine Kinase 342 H (26-308) U/L 01/01/19 01/01/19 Range/Units 06:51 09:40 WBC (4.0-11.0) K/uL RBC (4.50-5.90) M/uL Hgb (13.0-17.0) g/dL Hct (38.0-50.0) % MCV (80.0-98.0) fL MCH (27.0-32.0) pg MCHC (31.0-37.0) g/dL RDW Std Deviation (28.0-62.0) fl RDW Coeff of Leny (11.0-15.0) % Plt Count (150-400) K/uL MPV (7.40-12.00) fL Neut % (Auto) (48.0-80.0) % Lymph % (Auto) (16.0-40.0) % [place] % (Auto) (0.0-15.0) % Eos % (Auto) (0.0-7.0) % Baso % (Auto) (0.0-1.5) % Neut # (Auto) (1.4-5.7) K/uL Lymph # (Auto) (0.6-2.4) K/uL [place] # (Auto) (0.0-0.8) K/uL Eos # (Auto) (0.0-0.7) K/uL Baso # (Auto) (0.0-0.1) K/uL Nucleated RBC % /100WBC Nucleated RBCs # K/uL Sodium 138 (136-148) mmol/L Potassium 5.1 (3.5-5.1) mmol/L Chloride 108 H (98-107) mmol/L Carbon Dioxide 25.4 (21.0-32.0) mmol/L BUN 26 H (7.0-18.0) mg/dL Creatinine 1.0 (0.8-1.3) mg/dL Est Cr Clr Drug Dosing 95.24 mL/min Estimated GFR (MDRD) > 60.0 ml/min Glucose 142 H (74-106) mg/dL POC Glucose 122 H (60-110) mg/dL Calcium 8.4 L (8.5-10.1) mg/dL Creatine Kinase (26-308) U/L Med Orders - Current: Current Medications Discontinued Medications Acetaminophen (Tylenol) 650 mg PO Q4H PRN PRN Reason: Pain (Mild 1-3)/fever Albuterol (Ventolin Hfa) 0 gm INH Q6H PRN PRN Reason: breathing Gabapentin (Neurontin) 600 mg PO TID NIYAH Last Admin: 01/01/19 06:53 Dose: 600 mg Heparin Sodium (Porcine) (Heparin Sodium) 5,000 units SUBCUT Q8H NIYAH Last Admin: 12/30/18 18:16 Dose: 5,000 units Heparin Sodium (Porcine) (Heparin Sodium) 5,000 units SUBCUT Q8H NIYAH Last Admin: 01/01/19 06:44 Dose: Not Given Sodium Chloride (Normal Saline) 1,000 mls @ 999 mls/hr IV STAT ONE Stop: 12/30/18 17:30 Last Admin: 12/30/18 17:03 Dose: 999 mls/hr Sodium Chloride (Normal Saline) 1,000 mls @ 125 mls/hr IV CONTINUOUS NIYAH Last Admin: 12/31/18 23:50 Dose: 125 mls/hr Insulin Aspart (Novolog) 0 unit SUBCUT TIDAC NIYAH; Protocol Last Admin: 01/01/19 08:42 Dose: Not Given Insulin Aspart (Novolog) 6 unit SUBCUT NOW STA Stop: 12/30/18 22:09 Last Admin: 12/30/18 22:19 Dose: 6 unit Non-Formulary Medication (Albuterol Sulfate [Proair Respiclick]) 2 puff IH Q6H PRN PRN Reason: breathing Non-Formulary Medication (Insulin Lispro [Humalog Kwikpen U-200]) 50 units SQ DAILY@20 NIYAH Non-Formulary Medication (Insulin Lispro [Humalog Kwikpen U-200]) 105 units SQ DAILY NIYAH Non-Formulary Medication (Liraglutide) 0.3 ml SUBCUT DAILY NIYAH Omeprazole (Omeprazole) 40 mg PO ACBREAKFAST [facility] Last Admin: 01/01/19 06:52 Dose: 40 mg Ondansetron HCl (Zofran Odt) 4 mg PO Q4H PRN PRN Reason: nausea, able to take PO Insulin Regular, Human [Humulin R U- 500 Kwikpen] 70 Unit ) 0 each SUBCUT BEDTIME NIYAH Last Admin: 12/31/18 20:45 Dose: 1 each Liraglutide 0.3 Ml 1 each SUBCUT DAILY [facility] Last Admin: 01/01/19 08:53 Dose: 1 each Humulin R U-500 0 each SUBCUT ONETIME ONE Stop: 01/01/19 08:01 Last Admin: 01/01/19 08:55 Dose: 1 each Sodium Chloride (Saline Flush) 10 ml FLUSH ASDIRECTED PRN PRN Reason: Keep Vein Open Sodium Chloride (Saline Flush) 2.5 ml FLUSH ASDIRECTED PRN PRN Reason: Keep Vein Open
== END 2019-01-01 10:23 | disposition home or self-care (01) ==
LOC: MW.ED 15:19 → MW.MS 16:59
PROVIDERS: ADMIT Internal Medicine; ATTEND Internal Medicine
DX: M62.82 Rhabdomyolysis (principal); I12.9 Hypertensive chronic kidney disease with stage 1 through stage 4 chronic kidney disease, or unspecified chronic kidney disease; E11.22 Type 2 diabetes mellitus with diabetic chronic kidney disease; N18.9 Chronic kidney disease, unspecified; N17.9 Acute kidney failure, unspecified; I95.9 Hypotension, unspecified; R94.5 Abnormal results of liver function studies; I25.10 Atherosclerotic heart disease of native coronary artery without angina pectoris; E86.0 Dehydration; E78.00 Pure hypercholesterolemia, unspecified; K21.9 Gastro-esophageal reflux disease without esophagitis; E78.5 Hyperlipidemia, unspecified; M19.90 Unspecified osteoarthritis, unspecified site; Z88.2 Allergy status to sulfonamides; Z91.030 Bee allergy status; Z79.82 Long term (current) use of aspirin; Z79.899 Other long term (current) drug therapy; Z79.4 Long term (current) use of insulin; Z98.890 Other specified postprocedural states
CPT/HCPCS: 36415; 36600; 70450; 71045; 80048; 80053; 80305; 81003; 82550; 82803; 82962; 83690; 84443; 84484; 85025; 85027; 93005; 96360; 99285; A9270; J1644; J1815; J7040; 96361; 96372; G0378

== ENCOUNTER 2020-07-26 12:27 | Emergency (ER) | payer OTHER ==
--- NOTE | 2020-07-26 12:49 | EDM.PDOC ---
ED HPI GENERAL MEDICAL PROBLEM - General Chief Complaint: General Stated Complaint: CPK ELEVATED, [place] REFERRAL Time Seen by Provider: 07/26/20 12:36 Source of Information: Reports: Patient History Limitations: Reports: No Limitations - History of Present Illness INITIAL COMMENTS - FREE TEXT/NARRATIVE: HISTORY AND PHYSICAL: History of present illness: Patient is a 64-year-old male who presents to the emergency room from the [place] [facility] for an elevated CPK. He states approximately every 2 months he gets routine lab work for his diabetes and they have also been checking his CPK as he has a history of rhabdomyolysis. 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 No recent falls, injury or sitting for long periods of time. He states today was a routine evaluation and he has no current complaints or concerns. States his urine is very dark and concentrated, this is a new finding for him. Patient denies any fever, chills, headache, change in vision, syncope or near syncope. Denies any chest pain, back pain, shortness of breath or cough. Denies any abdominal pain, nausea, vomiting, diarrhea, constipation or dysuria. Has not noted any blood in urine or stool. Patient has been eating and drinking appropriately. Review of systems: As per history of present illness and below otherwise all systems reviewed and negative. Past medical history: As per history of present illness and as reviewed below otherwise noncontributory. Surgical history: As per history of present illness and as reviewed below otherwise noncontributory. Social history: See social history for further information Family history: As per history of present illness and as reviewed below otherwise noncontributory. Physical exam: General: Well developed and well nourished. Alert and orientated x 3. Nontoxic in appearance and in no acute distress. Vital signs are stable and have been reviewed by me. Nursing notes were reviewed. HEENT: Atraumatic, normocephalic, pupils equal and reactive bilaterally, negative for conjunctival pallor or scleral icterus, mucous membranes moist, TMs normal bilaterally, throat clear, neck supple, nontender, trachea midline. No drooling or trismus noted. No meningeal signs. No hot potato voice noted. Lungs: Clear to auscultation bilaterally. No wheezes, rales, or rhonchi. Chest nontender. Normal work of breathing, no accessory muscles used. Heart: S1S2, regular rate and rhythm without overt murmur, gallops, or rubs. No JVD. No peripheral edema Abdomen: Soft, nondistended, nontender. Normoactive bowel sounds. Negative for masses or costovertebral tenderness. Skin: Intact, warm, dry. No lesions or rashes noted. Hematologic: No petechiae or purpra. Mucosa appropriate color and normal nail bed color and refill. Extremities: Atraumatic, moves all extremities per self without difficulty or deficits, negative for cords or calf pain. Neurovascular unremarkable. Neuro: Awake, alert, oriented. Cranial nerves II through XII unremarkable. Cerebellum unremarkable. Motor and sensory unremarkable throughout. Exam nonfocal. Psychiatric: Mood and affect are appropriate. Normal thought process. Answering questions appropriately. Notes: *This patient was seen and evaluated during the 2019 SARS-CoV-2 novel coronavirus pandemic period. Community viral transmission is ongoing at time of this encounter and the emergency department is operating under pandemic response procedures. Patient's BUN and creatinine is 33/1.5, CPK of 661. Patient will receive IV fluids while here. I spoke with Dr Ram about this patient as he has acute on chronic rhabdomyolysis and renal insufficiency, she is agreeable that as long as he trends downward after fluids, he should be able to be discharged to home with close follow up. I have talked with the patient about today's findings, in addition to providing specific details for plan of care. Reassessment at the time of disposition demonstrates that the patient is in no acute distress. Patient doesn't want to be admitted, he will increase his fluids at home. The patient is stable for discharge, counseling was provided and we discussed in great detail signs and symptoms that would prompt them to return to the Emergency Department. Medication, follow up and supportive care measures were reviewed and discussed. Voices understanding and is agreeable to plan of care. Denies any further quest ions or concerns at this time. Diagnostics: CBC, CMP, CPK Therapeutics: NS x2 Impression: Rhabdomyolysis Renal insufficiency Plan: 1. Please increase your oral fluids. 2. Continue to monitor your symptoms closely. [facility]. 3. If your symptoms should worsen, new symptoms develop (decreased urinary output, muscle cramping, etc..) or anything unexpected occurs please return to the ED or call 911 if needed for reevaluation. Definitive disposition and diagnosis as appropriate pending reevaluation and review of above. - Related Data Allergies Allergy/AdvReac Type Severity Reaction Status Date / Time Sulfa (Sulfonamide Allergy Other Verified 07/26/20 12:42 Antibiotics) bee stings Allergy Swelling Uncoded 07/26/20 12:42 Home Meds: Home Meds metFORMIN HCl [Metformin HCl] 1,000 mg PO BID 09/20/15 [History] Aspirin [Adult Low Dose Aspirin EC] 81 mg PO BEDTIME 12/12/15 [History] Albuterol Sulfate [Proair Respiclick] 2 puff IH Q6H PRN 12/10/17 [History] Ascorbic Acid 250 mg PO BID 12/10/17 [History] Ferrous Sulfate 325 mg PO BIDMEALS 12/10/17 [History] Liraglutide [Victoza] 1.8 mg SUBCUT DAILY 12/10/17 [History] Clindamycin HCl 300 mg PO Q12HR 12/30/18 [History] Gabapentin [Neurontin] 600 mg PO TID 12/30/18 [History] Insulin Regular, Human [Humulin R U-500 Kwikpen] 105 unit SQ DAILY 12/30/18 [History] Lisinopril 20 mg PO DAILY 12/30/18 [History] Omeprazole 20 mg PO BID 12/30/18 [History] Propranolol [Inderal LA 24 Hr] 60 mg PO DAILY 12/30/18 [History] atorvaSTATin [Lipitor] 20 mg PO BEDTIME 12/30/18 [History] metroNIDAZOLE 250 mg PO TID 12/30/18 [History] Past Medical History - Past Health History Medical/Surgical History: Denies Medical/Surgical History HEENT History: Reports: Allergic Rhinitis, Impaired Vision Other HEENT History: uses reading glasses Cardiovascular History: Reports: CAD, High Cholesterol, Hypertension Other Cardiovascular History: "Heart skips a beat every so often". Atypical chest pain, 40% occlusion RCA, on beta stephen and nitrates. 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 Gastrointestinal History: Reports: None Other Gastrointestinal History: occasional GERD, diverticulitis Genitourinary History: Reports: None Other Genitourinary History: pt states he has history of kidney issues when he beomes dehydrated Musculoskeletal History: Reports: Arthritis, Fracture Other Musculoskeletal History: hx of fx right wrist, 2 fingers right hand, 2 ribs Neurological History: Reports: None Other Neuro History: tremor to left hand, bulging disk in spine Psychiatric History: Reports: None Endocrine/Metabolic History: Reports: Diabetes, Type II Other Endocrine/Metabolic History: on insulin, basal dose bid and sliding scale with meals. 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 and basal cell over neck - Infectious Disease History Infectious Disease History: Reports: Chicken Pox, Measles, Mumps, Novel Coronavirus - Past Surgical History Head Surgeries/Procedures: Reports: None HEENT Surgical History: Reports: Oral Surgery Cardiovascular Surgical History: Reports: None Respiratory Surgical History: Reports: None GI Surgical History: Reports: Appendectomy, Colonoscopy Male Surgical History: Reports: Varicocele Resection Endocrine Surgical History: Reports: None Neurological Surgical History: Reports: None Musculoskeletal Surgical History: Reports: Knee Replacement, Shoulder Surgery Other Musculoskeletal Surgeries/Procedures:: total knee x 2/ Rotator cuff surgery right shoulder. Oncologic Surgical History: Reports: None Dermatological Surgical History: Reports: None Social & Family History - Family History Family Medical History: No Pertinent Family History HEENT: Reports: Cataract Cardiac: Reports: Bypass, CAD, [place] Endocrine/Metabolic: Reports: Diabetes, type II Oncologic: Reports: Lung, Prostate - Tobacco Use Tobacco Use Status *Q: Never Tobacco User - Caffeine Use Caffeine Use: Reports: None Other Caffeine Use: 1 cup coffee and 1 Diet Mountain Dew per day Caffeine Use Comment: 1cup/day - Recreational Drug Use Recreational Drug Use: No ED ROS GENERAL - Review of Systems Review Of Systems: Comprehensive ROS is negative, except as noted in HPI. ED EXAM, GENERAL - Physical Exam Exam: See Below (See dictation) Course - Vital Signs Last Recorded V/S: Last Vital Signs Temp 97 F 07/26/20 12:39 Pulse 76 07/26/20 14:16 Resp 16 07/26/20 14:16 BP 97/67 07/26/20 14:16 Pulse Ox 96 07/26/20 14:16 - Orders/Labs/Meds Orders: Active Orders 24 hr Category Date Time Status Sodium Chloride 0.9% [Normal Saline] 1,000 ml Med 07/26/20 14:00 Active IV ASDIRECTED Sodium Chloride 0.9% [Saline Flush] Med 07/26/20 12:52 Active 10 ml FLUSH ASDIRECTED PRN Sodium Chloride 0.9% [Saline Flush] Med 07/26/20 12:52 Active 2.5 ml FLUSH ASDIRECTED PRN Saline Lock Insert [OM.PC] Stat Oth 07/26/20 12:52 Ordered Medication Orders Sodium Chloride (Normal Saline) 1,000 mls @ 999 mls/hr IV ASDIRECTED NIYAH Last Admin: 07/26/20 14:13 Dose: 999 mls/hr Documented by: AUGUSTINE Sodium Chloride (Saline Flush) 10 ml FLUSH ASDIRECTED PRN PRN Reason: Keep Vein Open Last Admin: 07/26/20 14:14 Dose: 10 ml Documented by: AUGUSTINE Sodium Chloride (Saline Flush) 2.5 ml FLUSH ASDIRECTED PRN PRN Reason: Keep Vein Open Last Admin: 07/26/20 14:14 Dose: 2.5 ml Documented by: AUGUSTINE Labs: Laboratory Tests 07/26/20 07/26/20 07/26/20 Range/Units 13:13 13:13 15:32 WBC 4.40 (4.0-11.0) K/uL RBC 4.50 (4.50-5.90) M/uL Hgb 13.1 (13.0-17.0) g/dL Hct 40.7 (38.0-50.0) % MCV 90.4 (80.0-98.0) fL MCH 29.1 (27.0-32.0) pg MCHC 32.2 (31.0-37.0) g/dL RDW Std Deviation 52.3 (28.0-62.0) fl RDW Coeff of Leny 16 H (11.0-15.0) % Plt Count 164 (150-400) K/uL MPV 9.20 (7.40-12.00) fL Neut % (Auto) 56.5 (48.0-80.0) % Lymph % (Auto) 30.0 (16.0-40.0) % [place] % (Auto) 8.9 (0.0-15.0) % Eos % (Auto) 4.1 (0.0-7.0) % Baso % (Auto) 0.5 (0.0-1.5) % Neut # (Auto) 2.5 (1.4-5.7) K/uL Lymph # (Auto) 1.3 (0.6-2.4) K/uL [place] # (Auto) 0.4 (0.0-0.8) K/uL Eos # (Auto) 0.2 (0.0-0.7) K/uL Baso # (Auto) 0.0 (0.0-0.1) K/uL Nucleated RBC % 0.0 /100WBC Nucleated RBCs # 0 K/uL Sodium 138 (136-148) mmol/L Potassium 4.6 (3.5-5.1) mmol/L Chloride 105 (98-107) mmol/L Carbon Dioxide 24.8 (21.0-32.0) mmol/L BUN 33 H (7.0-18.0) mg/dL Creatinine 1.5 H (0.8-1.3) mg/dL Est Cr Clr Drug Dosing 62.69 mL/min Estimated GFR (MDRD) 47.4 ml/min Glucose 157 H (74-106) mg/dL Calcium 9.1 (8.5-10.1) mg/dL Total Bilirubin 0.3 (0.2-1.0) mg/dL AST 45 H (15-37) IU/L ALT 68 H (14-63) IU/L Alkaline Phosphatase 134 H (46-116) U/L Creatine Kinase 661 H 555 H (26-308) U/L Total Protein 7.3 (6.4-8.2) g/dL Albumin 3.4 (3.4-5.0) g/dL Globulin 3.9 (2.6-4.0) g/dL Albumin/Globulin Ratio 0.9 (0.9-1.6) Meds: Medications Generic Name Dose Route Start Last Admin Trade Name Freq PRN Reason Stop Dose Admin Sodium Chloride 1,000 mls @ 999 mls/hr 07/26/20 14:00 07/26/20 14:13 Normal Saline IV 999 mls/hr ASDIRECTED NIYAH Administration Sodium Chloride 10 ml 07/26/20 12:52 07/26/20 14:14 Saline Flush FLUSH 10 ml ASDIRECTED PRN Administration Keep Vein Open Sodium Chloride 2.5 ml 07/26/20 12:52 07/26/20 14:14 Saline Flush FLUSH 2.5 ml ASDIRECTED PRN Administration Keep Vein Open Discontinued Medications Generic Name Dose Route Start Last Admin Trade Name Nisha PRN Reason Stop Dose Admin Sodium Chloride 1,000 mls @ 999 mls/hr 07/26/20 14:12 07/26/20 14:15 Normal Saline IV 07/26/20 15:12 999 mls/hr STAT ONE Administration Departure - Departure Time of Disposition: 14:19 Disposition: Home, Self-Care 01 Clinical Impression: Renal insufficiency Rhabdomyolysis Qualifiers: Rhabdomyolysis type: non-traumatic Qualified Code(s): M62.82 - Rhabdomyolysis - Discharge Information Referrals: Trent Schreiber MD [Primary Care Provider] - Forms: ED Department Discharge Additional Instructions: The following information is given to patients seen in the emergency department who are being discharged to home. This information is to outline your options for follow-up care. We provide all patients seen in our emergency department with a follow-up referral. The need for follow-up, as well as the timing and circumstances, are variable depending upon the specifics of your emergency department visit. If you don't have a primary care physician on staff, we will provide you with a referral. We always advise you to contact your personal physician following an emergency department visit to inform them of the circumstance of the visit and for follow-up with them and/or the need for any referrals to a consulting specialist. The emergency department will also refer you to a specialist when appropriate. This referral assures that you have the opportunity for follow-up care with a specialist. All of these measure are taken in an effort to provide you with optimal care, which includes your follow-up. Under all circumstances we always encourage you to contact your private physician who remains a resource for coordinating your care. When calling for follow-up care, please make the office aware that this follow-up is from your recent emergency room visit. If for any reason you are refused follow-up, please contact the [facility] Emergency Department at and asked to speak to the emergency department charge nurse. [facility] [address] [place] [id number] [facility] [address] [place] [address] Thank you for choosing the [facility] emergency department in [place] for your medical needs today. It was a pleasure caring for you. Today you were seen in the emergency department for elevated CPK. 1. Please increase your oral fluids. 2. Continue to monitor your symptoms closely. [facility]. 3. If your symptoms should worsen, new symptoms develop (decreased urinary output, muscle cramping, etc..) or anything unexpected occurs please return to the ED or call 911 if needed for reevaluation. Sepsis Event Note (ED) - Evaluation Sepsis Screening Result: No Definite Risk - Focused Exam Vital Signs: Vital Signs Temp Pulse Resp BP Pulse Ox 07/26/20 14:16 76 16 97/67 96 07/26/20 12:39 97 F 78 20 103/64 96 - My Orders Last 24 Hours: My Active Orders 07/26/20 12:52 Sodium Chloride 0.9% [Saline Flush] 10 ml FLUSH ASDIRECTED PRN Sodium Chloride 0.9% [Saline Flush] 2.5 ml FLUSH ASDIRECTED PRN Saline Lock Insert [OM.PC] Stat 07/26/20 14:00 Sodium Chloride 0.9% [Normal Saline] 1,000 ml IV ASDIRECTED - Assessment/Plan Last 24 Hours: My Active Orders 07/26/20 12:52 Sodium Chloride 0.9% [Saline Flush] 10 ml FLUSH ASDIRECTED PRN Sodium Chloride 0.9% [Saline Flush] 2.5 ml FLUSH ASDIRECTED PRN Saline Lock Insert [OM.PC] Stat 07/26/20 14:00 Sodium Chloride 0.9% [Normal Saline] 1,000 ml IV ASDIRECTED
[2020-07-26] MEDS ORDERED: Sodium Chloride 0.9% 2.5 ML Syringe FLUSH PRN (12:52)
[2020-07-26] MEDS ORDERED: Sodium Chloride 0.9% 10 ML Syringe FLUSH PRN (12:52)
[2020-07-26 13:55] LABS: CARBON DIOXIDE,CO2 24.8 mmol/L (21.0-32.0); POTASSIUM,K 4.6 mmol/L (3.5-5.1)
[2020-07-26] MEDS ORDERED: Sodium Chloride 0.9% 1,000 ML IV SCH (14:00)
[2020-07-26] MEDS ORDERED: Sodium Chloride 0.9% 1,000 ML IV ONE (14:12)
[2020-07-26 16:24] VITALS: BP 100/70; PULSE 72
== END 2020-07-26 16:32 | disposition home or self-care (01) ==
LOC: MW.ED 12:27
DX: M62.82 Rhabdomyolysis (principal); N28.9 Disorder of kidney and ureter, unspecified; E78.00 Pure hypercholesterolemia, unspecified; I10 Essential (primary) hypertension; M19.90 Unspecified osteoarthritis, unspecified site; E11.9 Type 2 diabetes mellitus without complications; I25.10 Atherosclerotic heart disease of native coronary artery without angina pectoris; Z79.4 Long term (current) use of insulin; Z88.2 Allergy status to sulfonamides; Z91.030 Bee allergy status; Z79.82 Long term (current) use of aspirin; Z79.899 Other long term (current) drug therapy
CPT/HCPCS: 36415; 80053; 82550; 85025; 99283; J7030

== ENCOUNTER 2020-09-18 10:17 | Observation (INO) | payer OTHER ==
--- NOTE | 2020-09-18 10:27 | PCM.EKG ---
#1 Interpretation EKG Date: 09/18/20 Time: 10:25 Rhythm: NSR Rate (Beats/Min): 76 ST-T: Normal (Ventricular trigeminy)
[2020-09-18] MEDS ORDERED: Aspirin 81 MG Tab.Chew PO ONE (10:29)
[2020-09-18] MEDS ORDERED: Sodium Chloride 0.9% 2.5 ML Syringe FLUSH PRN (10:29)
[2020-09-18] MEDS ORDERED: Sodium Chloride 0.9% 10 ML Syringe FLUSH PRN (10:29)
[2020-09-18] MEDS ORDERED: Sodium Chloride 0.9% 1,000 ML IV ONE (10:29)
--- NOTE | 2020-09-18 10:38 | EDM.PDOC ---
ED HPI GENERAL MEDICAL PROBLEM - General Chief Complaint: Chest Pain Stated Complaint: CHEST PAIN Time Seen by Provider: 09/18/20 10:19 Source of Information: Reports: Patient History Limitations: Reports: No Limitations - History of Present Illness INITIAL COMMENTS - FREE TEXT/NARRATIVE: HISTORY AND PHYSICAL: History of present illness: Patient is a 64-year-old male who presents to the ED today with concern of an episode of chest pain and shortness of breath that lasted 15 minutes and improved upon arrival to the emergency room. 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 Patient states that he was at the mailbox when he began to have midsternal chest pain and feeling short of breath. Patient states that he "felt like he was going to pass out "but states that he never ended up losing consciousness. Patient states just while walking into the emergency room, his episode ended and states he currently is not having chest pain or shortness of breath. Patient states he has a history of type 2 diabetes on insulin, hypertension, hyperlipidemia and states that he has had "episodes like this "in the past. Patient states he has had 2 prior cardiac catheterizations and states that they were "never able to find anything ". Patient denies any stents or cardiac bypass. Patient states his last cardiac cath was several years ago. Patient denies any other symptoms or concerns. Patient denies fever, chills, chest pain, shortness of breath, or cough. Denies headache, neck stiff ness, change in vision, syncope, or near syncope. Denies nausea, vomiting, abdominal pain, diarrhea, constipation, or dysuria. Has not noted any blood in urine or stool. Patient has been eating and drinking appropriately. Review of systems: As per history of present illness and below otherwise all systems reviewed and negative. Past medical history: As per history of present illness and as reviewed below otherwise noncontributory. Surgical history: As per history of present illness and as reviewed below otherwise noncontributory. Social history: See social history for further information Family history: As per history of present illness and as reviewed below otherwise noncontributory. Physical exam: General: Patient is alert, oriented, and in no acute distress. Patient laying comfortably on exam table. Vitals stable and reviewed by me. HEENT: Atraumatic, normocephalic, pupils equal and reactive bilaterally, negative for conjunctival pallor or scleral icterus, mucous membranes moist, TMs normal bilaterally, throat clear, neck supple, nontender, trachea midline. No drooling or trismus noted. No meningeal signs. No hot potato voice noted. Lungs: Clear to auscultation, breath sounds equal bilaterally, chest nontender. Heart: S1S2, regular rate and rhythm without overt murmur Abdomen: Soft, nondistended, nontender. Negative for masses or hepatosplenomegaly. Negative for costovertebral tenderness. Pelvis: Stable nontender. Genitourinary: Deferred. Rectal: Deferred. Skin: Intact, warm, dry. No lesions or rashes noted. Extremities: Atraumatic, negative for cords or calf pain. Neurovascular unremarkable. Neuro: Awake, alert, oriented. Cranial nerves II through XII unremarkable. Cerebellum unremarkable. Motor and sensory unremarkable throughout. Exam nonfocal. Notes: Upon arrival to the ED, patient's chest pain has resolved and he is currently chest pain-free. He is vitally stable on exam. We will perform routine lab work including cardiac evaluation. EKG shows no STEMI but does have several PVCs. See Dr. Paredes's dictation for sp ecific EKG interpretation. Patient does have some mild transaminitis on his CMP, otherwise lab work including troponin are unremarkable. Transaminitis is stable from prior evaluation. HEART score is 4-moderate risk. I did call and speak to the hospitalist on-call, Dr. Ram, and thoroughly discussed patient's case. Will admit to observation on telemetry. At disposition, patient remains vitally stable, chest pain free, and well appearing. Voices understanding and is agreeable to plan of care. Denies any further questions or concerns at this time. Diagnostics: EKG, CBC, CMP, CXR, Trop, Therapeutics: ASA, NS Impression: Chest pain r/o ACS Transaminitis, stable Plan: Admit to observation to Dr. Ram on telemetry Definitive disposition and diagnosis as appropriate pending reevaluation and review of above. chest Pain Score (Numeric/FACES): 1 - Related Data Allergies Allergy/AdvReac Type Severity Reaction Status Date / Time gemfibrozil Allergy Hives Verified 09/18/20 14:39 Sulfa (Sulfonamide Allergy Other Verified 09/18/20 14:39 Antibiotics) bee stings Allergy Swelling Uncoded 09/18/20 14:39 Home Meds: Home Meds metFORMIN HCl [Metformin HCl] 1,000 mg PO BIDMEALS 09/20/15 [History] Aspirin [Adult Low Dose Aspirin EC] 81 mg PO BEDTIME 12/12/15 [History] Ascorbic Acid 500 mg PO DAILY 12/10/17 [History] Insulin Regular, Human [Humulin R U-500 Kwikpen] 100 unit SQ QAM 12/30/18 [History] Lisinopril 10 mg PO DAILY 12/30/18 [History] Cholecalciferol (Vitamin D3) [Vitamin D3] 1,000 unit PO DAILY 09/18/20 [History] Famotidine 40 mg PO BEDTIME 09/18/20 [History] Fluticasone Propionate [Flonase] 2 spray NASBOTH DAILY PRN 09/18/20 [History] Insulin Regular, Human [Humulin R U-500 Kwikpen] 70 unit SUBCUT QPM 09/18/20 [History] Magnesium Oxide 420 mg PO BIDMEALS 09/18/20 [History] Propranolol HCl [Propranolol] 60 mg PO BID 09/18/20 [History] Semaglutide [Ozempic] 0.25 mg SUBCUT MO 09/18/20 [History] Past Medical History - Past Health History Medical/Surgical History: Denies Medical/Surgical History HEENT History: Reports: Allergic Rhinitis, Impaired Vision Other HEENT History: uses reading glasses Cardiovascular History: Reports: CAD, High Cholesterol, Hypertension Other Cardiovascular History: "Heart skips a beat every so often". Atypical chest pain, 40% occlusion RCA, on beta stephen and nitrates. 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 Gastrointestinal History: Reports: None Other Gastrointestinal History: occasional GERD, diverticulitis Genitourinary History: Reports: None Other Genitourinary History: pt states he has history of kidney issues when he beomes dehydrated Musculoskeletal History: Reports: Arthritis, Fracture Other Musculoskeletal History: hx of fx right wrist, 2 fingers right hand, 2 ribs Neurological History: Reports: None Other Neuro History: tremor to left hand, bulging disk in spine Psychiatric History: Reports: None Endocrine/Metabolic History: Reports: Diabetes, Type II Other Endocrine/Metabolic History: on insulin, basal dose bid and sliding scale with meals. Hematologic History: Reports: None Immunologic History: Reports: None Oncologic (Cancer) History: Reports: None Dermatologic History: Reports: None Other Dermatologic History: melanoma removed from back order clerk. and basal cell over neck - Infectious Disease History Infectious Disease History: Reports: Chicken Pox, Measles, Mumps, Novel Coronavirus - Past Surgical History Head Surgeries/Procedures: Reports: None HEENT Surgical History: Reports: Oral Surgery Cardiovascular Surgical History: Reports: None Respiratory Surgical History: Reports: None GI Surgical History: Reports: Appendectomy, Colonoscopy Male Surgical History: Reports: Varicocele Resection Endocrine Surgical History: Reports: None Neurological Surgical History: Reports: None Musculoskeletal Surgical History: Reports: Knee Replacement, Shoulder Surgery Other Musculoskeletal Surgeries/Procedures:: total knee x 2/ Rotator cuff surgery right shoulder. Oncologic Surgical History: Reports: None Dermatological Surgical History: Reports: None Social & Family History - Family History Family Medical History: No Pertinent Family History HEENT: Reports: Cataract Cardiac: Reports: Bypass, CAD, [place] Endocrine/Metabolic: Reports: Diabetes, type II Oncologic: Reports: Lung, Prostate - Caffeine Use Caffeine Use: Reports: None Other Caffeine Use: 1 cup coffee and 1 Diet Mountain Dew per day Caffeine Use Comment: 1cup/day ED ROS GENERAL - Review of Systems Review Of Systems: Comprehensive ROS is negative, except as noted in HPI. ED EXAM, GENERAL - Physical Exam Exam: See Below (see dictaton) Course - Vital Signs Last Recorded V/S: Last Vital Signs Temp 97.3 F 09/18/20 14:00 Pulse 63 09/18/20 14:00 Resp 16 09/18/20 14:00 BP 138/72 09/18/20 14:00 Pulse Ox 97 09/18/20 14:00 - Orders/Labs/Meds Orders: Active Orders 24 hr Category Date Time Status Admission Status [Patient Status] [ADT] Stat ADT 09/18/20 11:54 Active Cardiac Monitoring [RC] . DIRECTED Care 09/18/20 10:29 Active EKG Documentation Completion [RC] STAT Care 09/18/20 10:29 Active UA RFX HOLDEN AND CULT IF INDIC [URIN] Routine Lab 09/18/20 12:30 Ordered Sodium Chloride 0.9% [Saline Flush] Med 09/18/20 10:29 Active 10 ml FLUSH ASDIRECTED PRN Sodium Chloride 0.9% [Saline Flush] Med 09/18/20 10:29 Active 2.5 ml FLUSH ASDIRECTED PRN Saline Lock Insert [OM.PC] Stat Oth 09/18/20 10:29 Ordered Medication Orders Acetaminophen (Acetaminophen 325 Mg Tab) 650 mg PO Q4H PRN PRN Reason: Pain (Mild 1-3)/fever Dextrose/Water (50% Dextrose In Water 50 Ml Syringe) 50 ml IV ASDIRECTED PRN PRN Reason: Hypoglycemia Enoxaparin Sodium (Enoxaparin 40 Mg/0.4 Ml Syringe) 40 mg SUBCUT Q24H [facility] Glucagon (Glucagon,Human Recombinant 1 Mg Vial) 1 mg IM ASDIRECTED PRN PRN Reason: Hypoglycemia Insulin Aspart (Insulin Aspart 100 Units/Ml 3 Ml Pen) 0 unit SUBCUT TIDAC [facility]; Protocol Sodium Chloride (Sodium Chloride 0.9% 10 Ml Syringe) 10 ml FLUSH ASDIRECTED PRN PRN Reason: Keep Vein Open Last Admin: 09/18/20 10:40 Dose: 10 ml Documented by: EJNNY Sodium Chloride (Sodium Chloride 0.9% 2.5 Ml Syringe) 2.5 ml FLUSH ASDIRECTED PRN PRN Reason: Keep Vein Open Last Admin: 09/18/20 10:40 Dose: 2.5 ml Documented by: JENNY Labs: Laboratory Tests 09/18/20 09/18/20 09/18/20 Range/Units 10:35 10:35 10:35 WBC 5.82 (4.0-11.0) K/uL RBC 4.84 (4.50-5.90) M/uL Hgb 14.5 (13.0-17.0) g/dL Hct 43.3 (38.0-50.0) % MCV 89.5 (80.0-98.0) fL MCH 30.0 (27.0-32.0) pg MCHC 33.5 (31.0-37.0) g/dL RDW Std Deviation 46.0 (28.0-62.0) fl RDW Coeff of Leny 14 (11.0-15.0) % Plt Count 167 (150-400) K/uL MPV 9.20 (7.40-12.00) fL Neut % (Auto) 70.0 (48.0-80.0) % Lymph % (Auto) 19.8 (16.0-40.0) % [place] % (Auto) 7.7 (0.0-15.0) % Eos % (Auto) 2.2 (0.0-7.0) % Baso % (Auto) 0.3 (0.0-1.5) % Neut # (Auto) 4.1 (1.4-5.7) K/uL Lymph # (Auto) 1.2 (0.6-2.4) K/uL [place] # (Auto) 0.5 (0.0-0.8) K/uL Eos # (Auto) 0.1 (0.0-0.7) K/uL Baso # (Auto) 0.0 (0.0-0.1) K/uL Nucleated RBC % 0.0 /100WBC Nucleated RBCs # 0 K/uL Sodium 136 (136-148) mmol/L Potassium 4.7 (3.5-5.1) mmol/L Chloride 102 (98-107) mmol/L Carbon Dioxide 22.7 (21.0-32.0) mmol/L BUN 27 H (7.0-18.0) mg/dL Creatinine 1.3 (0.8-1.3) mg/dL Est Cr Clr Drug Dosing 70.42 mL/min Estimated GFR (MDRD) 55.9 ml/min Glucose 121 H (74-106) mg/dL Hemoglobin A1c (4.5 - 6.2) % Calcium 8.9 (8.5-10.1) mg/dL Magnesium 1.6 L (1.8-2.4) mg/dL Total Bilirubin 0.6 (0.2-1.0) mg/dL AST 42 H (15-37) IU/L ALT 64 H (14-63) IU/L Alkaline Phosphatase 112 (46-116) U/L Troponin I < 0.050 (0.000-0.056) ng/mL Total Protein 7.8 (6.4-8.2) g/dL Albumin 3.6 (3.4-5.0) g/dL Globulin 4.2 H (2.6-4.0) g/dL Albumin/Globulin Ratio 0.9 (0.9-1.6) Triglycerides 97 (0-200) mg/dL Cholesterol 173 (50-200) mg/dL LDL Cholesterol, Calc 114 (60-180) mg/dL VLDL Cholesterol 19 (5-55) mg/dL HDL Cholesterol 40 (40-60) mg/dL Cholesterol/HDL Ratio 4.3 (3.3-6.0) Influenza Type A RNA (NEGATIVE) Influenza Type B RNA (NEGATIVE) SARS-CoV-2 RNA ([facility]) (NEGATIVE) 09/18/20 09/18/20 Range/Units 10:35 11:27 WBC (4.0-11.0) K/uL RBC (4.50-5.90) M/uL Hgb (13.0-17.0) g/dL Hct (38.0-50.0) % MCV (80.0-98.0) fL MCH (27.0-32.0) pg MCHC (31.0-37.0) g/dL RDW Std Deviation (28.0-62.0) fl RDW Coeff of Leny (11.0-15.0) % Plt Count (150-400) K/uL MPV (7.40-12.00) fL Neut % (Auto) (48.0-80.0) % Lymph % (Auto) (16.0-40.0) % [place] % (Auto) (0.0-15.0) % Eos % (Auto) (0.0-7.0) % Baso % (Auto) (0.0-1.5) % Neut # (Auto) (1.4-5.7) K/uL Lymph # (Auto) (0.6-2.4) K/uL [place] # (Auto) (0.0-0.8) K/uL Eos # (Auto) (0.0-0.7) K/uL Baso # (Auto) (0.0-0.1) K/uL Nucleated RBC % /100WBC Nucleated RBCs # K/uL Sodium (136-148) mmol/L Potassium (3.5-5.1) mmol/L Chloride (98-107) mmol/L Carbon Dioxide (21.0-32.0) mmol/L BUN (7.0-18.0) mg/dL Creatinine (0.8-1.3) mg/dL Est Cr Clr Drug Dosing mL/min Estimated GFR (MDRD) ml/min Glucose (74-106) mg/dL Hemoglobin A1c 7.0 H (4.5 - 6.2) % Calcium (8.5-10.1) mg/dL Magnesium (1.8-2.4) mg/dL Total Bilirubin (0.2-1.0) mg/dL AST (15-37) IU/L ALT (14-63) IU/L Alkaline Phosphatase (46-116) U/L Troponin I (0.000-0.056) ng/mL Total Protein (6.4-8.2) g/dL Albumin (3.4-5.0) g/dL Globulin (2.6-4.0) g/dL Albumin/Globulin Ratio (0.9-1.6) Triglycerides (0-200) mg/dL Cholesterol (50-200) mg/dL LDL Cholesterol, Calc (60-180) mg/dL VLDL Cholesterol (5-55) mg/dL HDL Cholesterol (40-60) mg/dL Cholesterol/HDL Ratio (3.3-6.0) Influenza Type A RNA NEGATIVE (NEGATIVE) Influenza Type B RNA NEGATIVE (NEGATIVE) SARS-CoV-2 RNA (ADEL[facility]) NEGATIVE (NEGATIVE) Meds: Medications Generic Name Dose Route Start Last Admin Trade Name Freq PRN Reason Stop Dose Admin Acetaminophen 650 mg 09/18/20 14:07 Acetaminophen 325 Mg Tab PO Q4H PRN Pain (Mild 1-3)/fever Dextrose/Water 50 ml 09/18/20 14:08 50% Dextrose In Water 50 Ml Syringe IV ASDIRECTED PRN Hypoglycemia Enoxaparin Sodium 40 mg 09/18/20 16:00 Enoxaparin 40 Mg/0.4 Ml Syringe SUBCUT Q24H [facility] Glucagon 1 mg 09/18/20 14:08 Glucagon,Human Recombinant 1 Mg Vial IM ASDIRECTED PRN Hypoglycemia Insulin Aspart 0 unit 09/18/20 17:00 Insulin Aspart 100 Units/Ml 3 Ml Pen SUBCUT TIDAC [facility] Protocol Sodium Chloride 10 ml 09/18/20 10:29 09/18/20 10:40 Sodium Chloride 0.9% 10 Ml Syringe FLUSH 10 ml ASDIRECTED PRN Administration Keep Vein Open Sodium Chloride 2.5 ml 09/18/20 10:29 09/18/20 10:40 Sodium Chloride 0.9% 2.5 Ml Syringe FLUSH 2.5 ml ASDIRECTED PRN Administration Keep Vein Open Discontinued Medications Generic Name Dose Route Start Last Admin Trade Name Nisha PRN Reason Stop Dose Admin Aspirin 324 mg 09/18/20 10:29 09/18/20 10:40 Aspirin 81 Mg Tab.Chew PO 09/18/20 10:30 324 mg ONETIME ONE Administration Sodium Chloride 1,000 mls @ 999 mls/hr 09/18/20 10:29 09/18/20 10:39 Normal Saline IV 09/18/20 11:29 999 mls/hr BOLUS ONE Administration Magnesium Sulfate 2 gm in 50 mls @ 50 mls/hr 09/18/20 14:00 09/18/20 14:13 Magnesium Sulfate In Water 2 Gm/50 Ml IV 09/18/20 14:59 50 mls/hr ONETIME ONE Administration Departure - Departure Time of Disposition: 11:59 Disposition: Refer to Observation Clinical Impression: Chest pain, rule out acute myocardial infarction, Transaminitis - Discharge Information Sepsis Event Note (ED) - Focused Exam Vital Signs: Vital Signs Temp Pulse Resp BP Pulse Ox 09/18/20 12:21 75 125/70 95 09/18/20 11:51 65 116/61 94 L 09/18/20 11:26 72 110/68 96 09/18/20 10:28 96.3 F L 66 16 148/115 H 95 - My Orders Last 24 Hours: My Active Orders 09/18/20 10:29 Cardiac Monitoring [RC] . DIRECTED EKG Documentation Completion [RC] STAT Sodium Chloride 0.9% [Saline Flush] 10 ml FLUSH ASDIRECTED PRN Sodium Chloride 0.9% [Saline Flush] 2.5 ml FLUSH ASDIRECTED PRN Saline Lock Insert [OM.PC] Stat 09/18/20 11:54 Admission Status [Patient Status] [ADT] Stat - Assessment/Plan Last 24 Hours: My Active Orders 09/18/20 10:29 Cardiac Monitoring [RC] . DIRECTED EKG Documentation Completion [RC] STAT Sodium Chloride 0.9% [Saline Flush] 10 ml FLUSH ASDIRECTED PRN Sodium Chloride 0.9% [Saline Flush] 2.5 ml FLUSH ASDIRECTED PRN Saline Lock Insert [OM.PC] Stat 09/18/20 11:54 Admission Status [Patient Status] [ADT] Stat
[2020-09-18 11:11] LABS: BLOOD UREA NITROGEN,BUN 27 mg/dL (7.0-18.0); CARBON DIOXIDE,CO2 22.7 mmol/L (21.0-32.0); CHLORIDE,CL 102 mmol/L (98-107); GLUCOSE RANDOM 121 mg/dL (74-106); POTASSIUM,K 4.7 mmol/L (3.5-5.1); SODIUM,NA 136 mmol/L (136-148)
--- NOTE | 2020-09-18 11:22 | CR ---
INDICATION: Chest pain. TECHNIQUE: Chest 1 view. COMPARISON: Chest radiograph 05/30/2019. FINDINGS: No focal consolidation, pleural effusion, or pneumothorax. There is a stable 9 mm nodular opacity in the left upper lung between the 4th and 5th posterior ribs. This could represent a pulmonary nodule. Normal heart size and pulmonary vascularity. Soft tissue anchor in the left humeral head. The bones are otherwise unremarkable. IMPRESSION: 1. No acute cardiopulmonary findings. 2. Stable 9 mm nodular opacity in the left upper lung which could represent a pulmonary nodule. This is likely benign given stability since 2019, however further evaluation could be performed with nonemergent CT of the chest if clinically indicated. Dictated by Ann Roper MD @ Sep 18 2020 11:17AM Signed by Dr. Ann Roper @ Sep 18 2020 11:20AM
[2020-09-18 13:25] LABS: CORONAVIRUS COVID-19 NAA NEGATIVE (NEGATIVE); INFLUENZA A NAA NEGATIVE (NEGATIVE); INFLUENZA B NAA NEGATIVE (NEGATIVE)
[2020-09-18] MEDS ORDERED: Magnesium Sulfate/Water 2 GM/50 ML BAG IV ONE (14:00)
[2020-09-18] MEDS ORDERED: Acetaminophen 325 MG Tab PO PRN (14:07)
[2020-09-18] MEDS ORDERED: Glucagon,Human Recombinant 1 MG Vial IM PRN ×2 (14:08→20:48)
[2020-09-18] MEDS ORDERED: 50% Dextrose in Water 50 ML Syringe IV PRN (14:08)
--- NOTE | 2020-09-18 14:32 | PCM.HP.2 ---
<Zuhair Falcon - Last Filed: 09/18/20 17:59> H&P History of Present Illness - General Date of Service: 09/18/20 Admit Problem/Dx: Admission Diagnosis/Problem Admission Diagnosis/Problem Chest pain - History of Present Illness Initial Comments - Free Text/Narative: 64-year-old male with past medical history to include type 2 diabetes on insulin, hypertension, hyperlipidemia, 2 prior cardiac catheterizations with no stent placements, and previous history of similar chest pain, shortness of breath nausea, lightheadedness, bradycardic occurrences. Admitted to the medical floor for ACS rule out. Patient presented to the ED with chest pain, shortness of breath, nausea, fatigue, lightheadedness. 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 Patient felt like he was in a pass out but did not lose consciousness. Patient also states that he monitored his heart rate via smart watch and noted heart rate between 40 and 45. Patient currently takes 60 mg propranolol twice daily and states that medication might have something to do with his bradycardia, lightheadedness, nausea. Upon admission to the medical floor patient states he felt much better after receiving 1 L normal saline in the ED. Patient currently denies headache, lightheadedness, dizziness, chest pain, shortness of breath, abdominal pain, fever, chills, nausea, vomiting. Patient made for observation overnight. EKG normal sinus rhythm, regular rate. Troponin x3 negative. Vitals 97% O2 saturation on room air, heart rate 63, blood pressure 138/72 chest Pain Score (Numeric/FACES): 1 - Related Data Allergies/Adverse Reactions: Allergies Allergy/AdvReac Type Severity Reaction Status Date / Time gemfibrozil Allergy Hives Verified 09/18/20 14:39 Sulfa (Sulfonamide Allergy Other Verified 09/18/20 14:39 Antibiotics) bee stings Allergy Swelling Uncoded 09/18/20 14:39 Home Medications: Home Meds metFORMIN HCl [Metformin HCl] 1,000 mg PO BIDMEALS 09/20/15 [History] Aspirin [Adult Low Dose Aspirin EC] 81 mg PO BEDTIME 12/12/15 [History] Ascorbic Acid 500 mg PO DAILY 12/10/17 [History] Insulin Regular, Human [Humulin R U-500 Kwikpen] 100 unit SQ QAM 12/30/18 [History] Lisinopril 10 mg PO DAILY 12/30/18 [History] Cholecalciferol (Vitamin D3) [Vitamin D3] 1,000 unit PO DAILY 09/18/20 [History] Famotidine 40 mg PO BEDTIME 09/18/20 [History] Fluticasone Propionate [Flonase] 2 spray NASBOTH DAILY PRN 09/18/20 [History] Insulin Regular, Human [Humulin R U-500 Kwikpen] 70 unit SUBCUT QPM 09/18/20 [History] Magnesium Oxide 420 mg PO BIDMEALS 09/18/20 [History] Propranolol HCl [Propranolol] 60 mg PO BID 09/18/20 [History] Semaglutide [Ozempic] 0.25 mg SUBCUT MO 09/18/20 [History] Past Medical History - Past Health History Medical/Surgical History: Denies Medical/Surgical History HEENT History: Reports: Allergic Rhinitis, Impaired Vision Other HEENT History: uses reading glasses Cardiovascular History: Reports: CAD, High Cholesterol, Hypertension Other Cardiovascular History: "Heart skips a beat every so often". Atypical chest pain, 40% occlusion RCA, on beta stephen and nitrates. 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 Gastrointestinal History: Reports: None Other Gastrointestinal History: occasional GERD, diverticulitis Genitourinary History: Reports: None Other Genitourinary History: pt states he has history of kidney issues when he beomes dehydrated Musculoskeletal History: Reports: Arthritis, Fracture Other Musculoskeletal History: hx of fx right wrist, 2 fingers right hand, 2 ribs Neurological History: Reports: None Other Neuro History: tremor to left hand, bulging disk in spine Psychiatric History: Reports: None Endocrine/Metabolic History: Reports: Diabetes, Type II Other Endocrine/Metabolic History: on insulin, basal dose bid and sliding scale with meals. 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 and basal cell over neck - Infectious Disease History Infectious Disease History: Reports: Chicken Pox, Measles, Mumps, Novel Coronavirus - Past Surgical History Head Surgeries/Procedures: Reports: None HEENT Surgical History: Reports: Oral Surgery Cardiovascular Surgical History: Reports: None Respiratory Surgical History: Reports: None GI Surgical History: Reports: Appendectomy, Colonoscopy Male Surgical History: Reports: Varicocele Resection Endocrine Surgical History: Reports: None Neurological Surgical History: Reports: None Musculoskeletal Surgical History: Reports: Knee Replacement, Shoulder Surgery Other Musculoskeletal Surgeries/Procedures:: total knee x 2/ Rotator cuff surgery right shoulder. Oncologic Surgical History: Reports: None Dermatological Surgical History: Reports: None Social & Family History - Family History Family Medical History: No Pertinent Family History HEENT: Reports: Cataract Cardiac: Reports: Bypass, CAD, [place] Endocrine/Metabolic: Reports: Diabetes, type II Oncologic: Reports: Lung, Prostate - Tobacco Use Tobacco Use Status *Q: Never Tobacco User - Caffeine Use Caffeine Use: Reports: None Other Caffeine Use: 1 cup coffee and 1 Diet Mountain Dew per day Caffeine Use Comment: 1cup/day - Recreational Drug Use Recreational Drug Use: No H&P Review of Systems - Review of Systems: Review Of Systems: See Below General: Denies: Fever, Chills, Weakness, Fatigue Pulmonary: Denies: Shortness of Breath, Wheezing Cardiovascular: Denies: Chest Pain, Dyspnea on Exertion Gastrointestinal: Denies: Abdominal Pain, Nausea, Vomiting Musculoskeletal: Denies: Neck Pain, Shoulder Pain, Arm Pain, Back Pain Psychiatric: Denies: Confusion Neurological: Denies: Confusion Exam - Exam Exam: See Below - Vital Signs Vital Signs: Last Vital Signs Temp 96.3 F L 09/18/20 10:28 Pulse 64 09/18/20 13:21 Resp 16 09/18/20 10:28 BP 122/76 09/18/20 13:21 Pulse Ox 96 09/18/20 13:21 Weight: 137.438 kg - Exam General: Alert, Oriented Lungs: Clear to Auscultation, Normal Respiratory Effort Cardiovascular: Regular Rate, Regular Rhythm GI/Abdominal Exam: Normal Bowel Sounds, Soft, Non-Tender Extremities: No Pedal Edema Neuro Extensive - Mental Status: Alert, Oriented x3 Psychiatric: Alert - Patient Data Lab Results Last 24 hrs: Laboratory Results - last 24 hr 09/18/20 09/18/20 09/18/20 Range/Units 10:35 10:35 10:35 WBC 5.82 (4.0-11.0) K/uL RBC 4.84 (4.50-5.90) M/uL Hgb 14.5 (13.0-17.0) g/dL Hct 43.3 (38.0-50.0) % MCV 89.5 (80.0-98.0) fL MCH 30.0 (27.0-32.0) pg MCHC 33.5 (31.0-37.0) g/dL RDW Std Deviation 46.0 (28.0-62.0) fl RDW Coeff of Leny 14 (11.0-15.0) % Plt Count 167 (150-400) K/uL MPV 9.20 (7.40-12.00) fL Neut % (Auto) 70.0 (48.0-80.0) % Lymph % (Auto) 19.8 (16.0-40.0) % Tama % (Auto) 7.7 (0.0-15.0) % Eos % (Auto) 2.2 (0.0-7.0) % Baso % (Auto) 0.3 (0.0-1.5) % Neut # (Auto) 4.1 (1.4-5.7) K/uL Lymph # (Auto) 1.2 (0.6-2.4) K/uL Tama # (Auto) 0.5 (0.0-0.8) K/uL Eos # (Auto) 0.1 (0.0-0.7) K/uL Baso # (Auto) 0.0 (0.0-0.1) K/uL Nucleated RBC % 0.0 /100WBC Nucleated RBCs # 0 K/uL Sodium 136 (136-148) mmol/L Potassium 4.7 (3.5-5.1) mmol/L Chloride 102 (98-107) mmol/L Carbon Dioxide 22.7 (21.0-32.0) mmol/L BUN 27 H (7.0-18.0) mg/dL Creatinine 1.3 (0.8-1.3) mg/dL Est Cr Clr Drug Dosing 70.42 mL/min Estimated GFR (MDRD) 55.9 ml/min Glucose 121 H (74-106) mg/dL Hemoglobin A1c (4.5 - 6.2) % Calcium 8.9 (8.5-10.1) mg/dL Magnesium 1.6 L (1.8-2.4) mg/dL Total Bilirubin 0.6 (0.2-1.0) mg/dL AST 42 H (15-37) IU/L ALT 64 H (14-63) IU/L Alkaline Phosphatase 112 (46-116) U/L Troponin I < 0.050 (0.000-0.056) ng/mL Total Protein 7.8 (6.4-8.2) g/dL Albumin 3.6 (3.4-5.0) g/dL Globulin 4.2 H (2.6-4.0) g/dL Albumin/Globulin Ratio 0.9 (0.9-1.6) Triglycerides 97 (0-200) mg/dL Cholesterol 173 (50-200) mg/dL LDL Cholesterol, Calc 114 (60-180) mg/dL VLDL Cholesterol 19 (5-55) mg/dL HDL Cholesterol 40 (40-60) mg/dL Cholesterol/HDL Ratio 4.3 (3.3-6.0) Influenza Type A RNA (NEGATIVE) Influenza Type B RNA (NEGATIVE) SARS-CoV-2 RNA (ADELINA) (NEGATIVE) 09/18/20 09/18/20 09/18/20 Range/Units 10:35 11:27 13:27 WBC (4.0-11.0) K/uL RBC (4.50-5.90) M/uL Hgb (13.0-17.0) g/dL Hct (38.0-50.0) % MCV (80.0-98.0) fL MCH (27.0-32.0) pg MCHC (31.0-37.0) g/dL RDW Std Deviation (28.0-62.0) fl RDW Coeff of Leny (11.0-15.0) % Plt Count (150-400) K/uL MPV (7.40-12.00) fL Neut % (Auto) (48.0-80.0) % Lymph % (Auto) (16.0-40.0) % Tama % (Auto) (0.0-15.0) % Eos % (Auto) (0.0-7.0) % Baso % (Auto) (0.0-1.5) % Neut # (Auto) (1.4-5.7) K/uL Lymph # (Auto) (0.6-2.4) K/uL Tama # (Auto) (0.0-0.8) K/uL Eos # (Auto) (0.0-0.7) K/uL Baso # (Auto) (0.0-0.1) K/uL Nucleated RBC % /100WBC Nucleated RBCs # K/uL Sodium (136-148) mmol/L Potassium (3.5-5.1) mmol/L Chloride (98-107) mmol/L Carbon Dioxide (21.0-32.0) mmol/L BUN (7.0-18.0) mg/dL Creatinine (0.8-1.3) mg/dL Est Cr Clr Drug Dosing mL/min Estimated GFR (MDRD) ml/min Glucose (74-106) mg/dL Hemoglobin A1c 7.0 H (4.5 - 6.2) % Calcium (8.5-10.1) mg/dL Magnesium (1.8-2.4) mg/dL Total Bilirubin (0.2-1.0) mg/dL AST (15-37) IU/L ALT (14-63) IU/L Alkaline Phosphatase (46-116) U/L Troponin I < 0.050 (0.000-0.056) ng/mL Total Protein (6.4-8.2) g/dL Albumin (3.4-5.0) g/dL Globulin (2.6-4.0) g/dL Albumin/Globulin Ratio (0.9-1.6) Triglycerides (0-200) mg/dL Cholesterol (50-200) mg/dL LDL Cholesterol, Calc (60-180) mg/dL VLDL Cholesterol (5-55) mg/dL HDL Cholesterol (40-60) mg/dL Cholesterol/HDL Ratio (3.3-6.0) Influenza Type A RNA NEGATIVE (NEGATIVE) Influenza Type B RNA NEGATIVE (NEGATIVE) SARS-CoV-2 RNA (ADELINA) NEGATIVE (NEGATIVE) Result Diagrams: 09/18/20 10:35 09/18/20 10:35 Sepsis Event Note - Evaluation Sepsis Screening Result: No Definite Risk - Focused Exam Vital Signs: Vital Signs Temp Pulse Resp BP Pulse Ox 09/18/20 13:21 64 122/76 96 09/18/20 12:21 75 125/70 95 09/18/20 11:51 65 116/61 94 L 09/18/20 11:26 72 110/68 96 09/18/20 10:28 96.3 F L 66 16 148/115 H 95 - Problem List (1) Chest pain, rule out acute myocardial infarction SNOMED Code(s): 82429651 ICD Code: R07.9 - CHEST PAIN, UNSPECIFIED Status: Acute Current Visit: Yes (2) Dehydration SNOMED Code(s): 73680523 ICD Code: E86.0 - DEHYDRATION Status: Acute Current Visit: No (3) Dyslipidemia SNOMED Code(s): 150902961 ICD Code: E78.5 - HYPERLIPIDEMIA, UNSPECIFIED Status: Acute Current Visit: No (4) HTN (hypertension) SNOMED Code(s): 69184477 ICD Code: I10 - ESSENTIAL (PRIMARY) HYPERTENSION Status: Acute Current Visit: No Qualifiers: Hypertension type: essential hypertension Qualified Code(s): I10 - Essential (primary) hypertension (5) Type 2 diabetes mellitus SNOMED Code(s): 81294555 ICD Code: E11.9 - TYPE 2 DIABETES MELLITUS WITHOUT COMPLICATIONS Status: Acute Current Visit: No Problem List Initiated/Reviewed/Updated: Yes Orders Last 24hrs: Active Orders 24 hr Category Date Time Status Admission Status [Patient Status] [ADT] Stat ADT 09/18/20 11:54 Active Cardiac Monitoring [RC] . DIRECTED Care 09/18/20 10:29 Active EKG Documentation Completion [RC] STAT Care 09/18/20 10:29 Active Oxygen Therapy [RC] PRN Care 09/18/20 14:07 Active Telemetry Monitoring [Cardiac Monitoring] [RC] . Care 09/18/20 13:34 Active DIRECTED VTE/DVT Education [RC] PER UNIT ROUTINE Care 09/18/20 14:07 Active Vital Signs [RC] Q4H Care 09/18/20 14:07 Active Citizen Of [place] [employer] Diet [DIET] Diet 09/18/20 Lunch Active TROPONIN I [CHEM] Routine Lab 09/18/20 16:30 Ordered UA RFX HOLDEN AND CULT IF INDIC [URIN] Routine Lab 09/18/20 12:30 Ordered Acetaminophen [TylenoL] Med 09/18/20 14:07 Ordered 650 mg PO Q4H PRN Dextrose 50% in Water Med 09/18/20 14:08 Ordered 50 ml IV ASDIRECTED PRN Enoxaparin [Lovenox] Med 09/18/20 14:15 Ordered 40 mg SUBCUT Q24H Glucagon,Human Recombinant [GlucaGen] Med 09/18/20 14:08 Ordered 1 mg IM ASDIRECTED PRN Insulin Aspart [NovoLOG] Med 09/18/20 17:00 Ordered See Protocol SUBCUT TIDAC Magnesium Sulfate/Water [Magnesium Sulfate in Water 2 Med 09/18/20 14:00 Active GM/50 ML] 2 gm in 50 ml IV ONETIME Sodium Chloride 0.9% [Saline Flush] Med 09/18/20 10:29 Active 10 ml FLUSH ASDIRECTED PRN Sodium Chloride 0.9% [Saline Flush] Med 09/18/20 10:29 Active 2.5 ml FLUSH ASDIRECTED PRN Saline Lock Insert [OM.PC] Stat Oth 09/18/20 10:29 Ordered Medication Orders Acetaminophen (Acetaminophen 325 Mg Tab) 650 mg PO Q4H PRN PRN Reason: Pain (Mild 1-3)/fever Dextrose/Water (50% Dextrose In Water 50 Ml Syringe) 50 ml IV ASDIRECTED PRN PRN Reason: Hypoglycemia Enoxaparin Sodium (Enoxaparin 40 Mg/0.4 Ml Syringe) 40 mg SUBCUT Q24H NIYAH Glucagon (Glucagon,Human Recombinant 1 Mg Vial) 1 mg IM ASDIRECTED PRN PRN Reason: Hypoglycemia Magnesium Sulfate (Magnesium Sulfate In Water 2 Gm/50 Ml) 2 gm in 50 mls @ 50 mls/hr IV ONETIME ONE Stop: 09/18/20 14:59 Last Admin: 09/18/20 14:13 Dose: 50 mls/hr Documented by: KIMBERLY Insulin Aspart (Insulin Aspart 100 Units/Ml 3 Ml Pen) 0 unit SUBCUT TIDAC NIYAH; Protocol Sodium Chloride (Sodium Chloride 0.9% 10 Ml Syringe) 10 ml FLUSH ASDIRECTED PRN PRN Reason: Keep Vein Open Last Admin: 09/18/20 10:40 Dose: 10 ml Documented by: JENNY Sodium Chloride (Sodium Chloride 0.9% 2.5 Ml Syringe) 2.5 ml FLUSH ASDIRECTED PRN PRN Reason: Keep Vein Open Last Admin: 09/18/20 10:40 Dose: 2.5 ml Documented by: JENNY Assessment/Plan Comment:: ACS rule out Troponin x 3 negative, EKG NSR with regular rate, hemoglobin A1c 7 .0, lipid panel normal, UA pending, potassium 4.7, magnesium 1.6, repleted with 2 g mag sulfate IV. Patient currently hemodynamically stable will observe overnight. Diabetes type 2patient states that he takes Humulin regular insulin 70 units at bedtime and 100 units in the morning. Last glucose was 121, 151. Patient currently on sliding scale low-dose insulin and diabetic diet. Will increase sliding scale protocol and or add insulin as needed based on mealtime sugars. Resume lisinopril, hold propranolol tonight. Lovenox DVT prophylaxis. <Clement Ram - Last Filed: 09/18/20 21:36> H&P History of Present Illness - General Admit Problem/Dx: Admission Diagnosis/Problem Admission Diagnosis/Problem Chest pain - History of Present Illness Initial Comments - Free Text/Narative: I performed a history and physical exam of the patient and discussed management with resident. I have reviewed the residents note and agree with documented findings and plan unless otherwise specified in my note. Exam - Vital Signs Vital Signs: Last Vital Signs Temp 36.7 C 09/18/20 19:50 Pulse 78 09/18/20 19:50 Resp 14 09/18/20 19:50 BP 131/72 09/18/20 19:50 Pulse Ox 96 09/18/20 19:50 - Patient Data Lab Results Last 24 hrs: Laboratory Results - last 24 hr 09/18/20 09/18/20 09/18/20 Range/Units 10:35 10:35 10:35 WBC 5.82 (4.0-11.0) K/uL RBC 4.84 (4.50-5.90) M/uL Hgb 14.5 (13.0-17.0) g/dL Hct 43.3 (38.0-50.0) % MCV 89.5 (80.0-98.0) fL MCH 30.0 (27.0-32.0) pg MCHC 33.5 (31.0-37.0) g/dL RDW Std Deviation 46.0 (28.0-62.0) fl RDW Coeff of Leny 14 (11.0-15.0) % Plt Count 167 (150-400) K/uL MPV 9.20 (7.40-12.00) fL Neut % (Auto) 70.0 (48.0-80.0) % Lymph % (Auto) 19.8 (16.0-40.0) % Tama % (Auto) 7.7 (0.0-15.0) % Eos % (Auto) 2.2 (0.0-7.0) % Baso % (Auto) 0.3 (0.0-1.5) % Neut # (Auto) 4.1 (1.4-5.7) K/uL Lymph # (Auto) 1.2 (0.6-2.4) K/uL Tama # (Auto) 0.5 (0.0-0.8) K/uL Eos # (Auto) 0.1 (0.0-0.7) K/uL Baso # (Auto) 0.0 (0.0-0.1) K/uL Nucleated RBC % 0.0 /100WBC Nucleated RBCs # 0 K/uL Sodium 136 (136-148) mmol/L Potassium 4.7 (3.5-5.1) mmol/L Chloride 102 (98-107) mmol/L Carbon Dioxide 22.7 (21.0-32.0) mmol/L BUN 27 H (7.0-18.0) mg/dL Creatinine 1.3 (0.8-1.3) mg/dL Est Cr Clr Drug Dosing 70.42 mL/min Estimated GFR (MDRD) 55.9 ml/min Glucose 121 H (74-106) mg/dL POC Glucose (60-110) mg/dL Hemoglobin A1c (4.5 - 6.2) % Calcium 8.9 (8.5-10.1) mg/dL Magnesium 1.6 L (1.8-2.4) mg/dL Total Bilirubin 0.6 (0.2-1.0) mg/dL AST 42 H (15-37) IU/L ALT 64 H (14-63) IU/L Alkaline Phosphatase 112 (46-116) U/L Troponin I < 0.050 (0.000-0.056) ng/mL Total Protein 7.8 (6.4-8.2) g/dL Albumin 3.6 (3.4-5.0) g/dL Globulin 4.2 H (2.6-4.0) g/dL Albumin/Globulin Ratio 0.9 (0.9-1.6) Triglycerides 97 (0-200) mg/dL Cholesterol 173 (50-200) mg/dL LDL Cholesterol, Calc 114 (60-180) mg/dL VLDL Cholesterol 19 (5-55) mg/dL HDL Cholesterol 40 (40-60) mg/dL Cholesterol/HDL Ratio 4.3 (3.3-6.0) Urine Color Urine Appearance Urine pH (5.0-8.0) Ur Specific [place] (1.001-1.035) Urine Protein (NEGATIVE) mg/dL Urine Glucose (UA) (NEGATIVE) mg/dL Urine Ketones (NEGATIVE) mg/dL Urine Occult Blood (NEGATIVE) Urine Nitrite (NEGATIVE) Urine Bilirubin (NEGATIVE) Urine Urobilinogen (<2.0) EU/dL Ur Leukocyte Esterase (NEGATIVE) Influenza Type A RNA (NEGATIVE) Influenza Type B RNA (NEGATIVE) SARS-CoV-2 RNA (ADELINA) (NEGATIVE) 09/18/20 09/18/20 09/18/20 Range/Units 10:35 11:27 13:27 WBC (4.0-11.0) K/uL RBC (4.50-5.90) M/uL Hgb (13.0-17.0) g/dL Hct (38.0-50.0) % MCV (80.0-98.0) fL MCH (27.0-32.0) pg MCHC (31.0-37.0) g/dL RDW Std Deviation (28.0-62.0) fl RDW Coeff of Leny (11.0-15.0) % Plt Count (150-400) K/uL MPV (7.40-12.00) fL Neut % (Auto) (48.0-80.0) % Lymph % (Auto) (16.0-40.0) % Tama % (Auto) (0.0-15.0) % Eos % (Auto) (0.0-7.0) % Baso % (Auto) (0.0-1.5) % Neut # (Auto) (1.4-5.7) K/uL Lymph # (Auto) (0.6-2.4) K/uL Tama # (Auto) (0.0-0.8) K/uL Eos # (Auto) (0.0-0.7) K/uL Baso # (Auto) (0.0-0.1) K/uL Nucleated RBC % /100WBC Nucleated RBCs # K/uL Sodium (136-148) mmol/L Potassium (3.5-5.1) mmol/L Chloride (98-107) mmol/L Carbon Dioxide (21.0-32.0) mmol/L BUN (7.0-18.0) mg/dL Creatinine (0.8-1.3) mg/dL Est Cr Clr Drug Dosing mL/min Estimated GFR (MDRD) ml/min Glucose (74-106) mg/dL POC Glucose (60-110) mg/dL Hemoglobin A1c 7.0 H (4.5 - 6.2) % Calcium (8.5-10.1) mg/dL Magnesium (1.8-2.4) mg/dL Total Bilirubin (0.2-1.0) mg/dL AST (15-37) IU/L ALT (14-63) IU/L Alkaline Phosphatase (46-116) U/L Troponin I < 0.050 (0.000-0.056) ng/mL Total Protein (6.4-8.2) g/dL Albumin (3.4-5.0) g/dL Globulin (2.6-4.0) g/dL Albumin/Globulin Ratio (0.9-1.6) Triglycerides (0-200) mg/dL Cholesterol (50-200) mg/dL LDL Cholesterol, Calc (60-180) mg/dL VLDL Cholesterol (5-55) mg/dL HDL Cholesterol (40-60) mg/dL Cholesterol/HDL Ratio (3.3-6.0) Urine Color Urine Appearance Urine pH (5.0-8.0) Ur Specific [place] (1.001-1.035) Urine Protein (NEGATIVE) mg/dL Urine Glucose (UA) (NEGATIVE) mg/dL Urine Ketones (NEGATIVE) mg/dL Urine Occult Blood (NEGATIVE) Urine Nitrite (NEGATIVE) Urine Bilirubin (NEGATIVE) Urine Urobilinogen (<2.0) EU/dL Ur Leukocyte Esterase (NEGATIVE) Influenza Type A RNA NEGATIVE (NEGATIVE) Influenza Type B RNA NEGATIVE (NEGATIVE) SARS-CoV-2 RNA (ADELINA) NEGATIVE (NEGATIVE) 09/18/20 09/18/20 09/18/20 Range/Units 14:43 16:30 16:30 WBC (4.0-11.0) K/uL RBC (4.50-5.90) M/uL Hgb (13.0-17.0) g/dL Hct (38.0-50.0) % MCV (80.0-98.0) fL MCH (27.0-32.0) pg MCHC (31.0-37.0) g/dL RDW Std Deviation (28.0-62.0) fl RDW Coeff of Leny (11.0-15.0) % Plt Count (150-400) K/uL MPV (7.40-12.00) fL Neut % (Auto) (48.0-80.0) % Lymph % (Auto) (16.0-40.0) % [place] % (Auto) (0.0-15.0) % Eos % (Auto) (0.0-7.0) % Baso % (Auto) (0.0-1.5) % Neut # (Auto) (1.4-5.7) K/uL Lymph # (Auto) (0.6-2.4) K/uL Tama # (Auto) (0.0-0.8) K/uL Eos # (Auto) (0.0-0.7) K/uL Baso # (Auto) (0.0-0.1) K/uL Nucleated RBC % /100WBC Nucleated RBCs # K/uL Sodium (136-148) mmol/L Potassium (3.5-5.1) mmol/L Chloride (98-107) mmol/L Carbon Dioxide (21.0-32.0) mmol/L BUN (7.0-18.0) mg/dL Creatinine (0.8-1.3) mg/dL Est Cr Clr Drug Dosing mL/min Estimated GFR (MDRD) ml/min Glucose (74-106) mg/dL POC Glucose 52 L (60-110) mg/dL Hemoglobin A1c (4.5 - 6.2) % Calcium (8.5-10.1) mg/dL Magnesium (1.8-2.4) mg/dL Total Bilirubin (0.2-1.0) mg/dL AST (15-37) IU/L ALT (14-63) IU/L Alkaline Phosphatase (46-116) U/L Troponin I < 0.050 (0.000-0.056) ng/mL Total Protein (6.4-8.2) g/dL Albumin (3.4-5.0) g/dL Globulin (2.6-4.0) g/dL Albumin/Globulin Ratio (0.9-1.6) Triglycerides (0-200) mg/dL Cholesterol (50-200) mg/dL LDL Cholesterol, Calc (60-180) mg/dL VLDL Cholesterol (5-55) mg/dL HDL Cholesterol (40-60) mg/dL Cholesterol/HDL Ratio (3.3-6.0) Urine Color YELLOW Urine Appearance CLEAR Urine pH 5.0 (5.0-8.0) Ur Specific [place] 1.020 (1.001-1.035) Urine Protein NEGATIVE (NEGATIVE) mg/dL Urine Glucose (UA) NEGATIVE (NEGATIVE) mg/dL Urine Ketones NEGATIVE (NEGATIVE) mg/dL Urine Occult Blood NEGATIVE (NEGATIVE) Urine Nitrite NEGATIVE (NEGATIVE) Urine Bilirubin NEGATIVE (NEGATIVE) Urine Urobilinogen 0.2 (<2.0) EU/dL Ur Leukocyte Esterase NEGATIVE (NEGATIVE) Influenza Type A RNA (NEGATIVE) Influenza Type B RNA (NEGATIVE) SARS-CoV-2 RNA (ADELINA) (NEGATIVE) 09/18/20 09/18/20 Range/Units 17:32 20:39 WBC (4.0-11.0) K/uL RBC (4.50-5.90) M/uL Hgb (13.0-17.0) g/dL Hct (38.0-50.0) % MCV (80.0-98.0) fL MCH (27.0-32.0) pg MCHC (31.0-37.0) g/dL RDW Std Deviation (28.0-62.0) fl RDW Coeff of Leny (11.0-15.0) % Plt Count (150-400) K/uL MPV (7.40-12.00) fL Neut % (Auto) (48.0-80.0) % Lymph % (Auto) (16.0-40.0) % [place] % (Auto) (0.0-15.0) % Eos % (Auto) (0.0-7.0) % Baso % (Auto) (0.0-1.5) % Neut # (Auto) (1.4-5.7) K/uL Lymph # (Auto) (0.6-2.4) K/uL [place] # (Auto) (0.0-0.8) K/uL Eos # (Auto) (0.0-0.7) K/uL Baso # (Auto) (0.0-0.1) K/uL Nucleated RBC % /100WBC Nucleated RBCs # K/uL Sodium (136-148) mmol/L Potassium (3.5-5.1) mmol/L Chloride (98-107) mmol/L Carbon Dioxide (21.0-32.0) mmol/L BUN (7.0-18.0) mg/dL Creatinine (0.8-1.3) mg/dL Est Cr Clr Drug Dosing mL/min Estimated GFR (MDRD) ml/min Glucose (74-106) mg/dL POC Glucose 151 H 175 H (60-110) mg/dL Hemoglobin A1c (4.5 - 6.2) % Calcium (8.5-10.1) mg/dL Magnesium (1.8-2.4) mg/dL Total Bilirubin (0.2-1.0) mg/dL AST (15-37) IU/L ALT (14-63) IU/L Alkaline Phosphatase (46-116) U/L Troponin I (0.000-0.056) ng/mL Total Protein (6.4-8.2) g/dL Albumin (3.4-5.0) g/dL Globulin (2.6-4.0) g/dL Albumin/Globulin Ratio (0.9-1.6) Triglycerides (0-200) mg/dL Cholesterol (50-200) mg/dL LDL Cholesterol, Calc (60-180) mg/dL VLDL Cholesterol (5-55) mg/dL HDL Cholesterol (40-60) mg/dL Cholesterol/HDL Ratio (3.3-6.0) Urine Color Urine Appearance Urine pH (5.0-8.0) Ur Specific [place] (1.001-1.035) Urine Protein (NEGATIVE) mg/dL Urine Glucose (UA) (NEGATIVE) mg/dL Urine Ketones (NEGATIVE) mg/dL Urine Occult Blood (NEGATIVE) Urine Nitrite (NEGATIVE) Urine Bilirubin (NEGATIVE) Urine Urobilinogen (<2.0) EU/dL Ur Leukocyte Esterase (NEGATIVE) Influenza Type A RNA (NEGATIVE) Influenza Type B RNA (NEGATIVE) SARS-CoV-2 RNA (ADELINA) (NEGATIVE) Result Diagrams: 09/18/20 10:35 09/18/20 10:35 Sepsis Event Note - Focused Exam Vital Signs: Vital Signs Temp Pulse Resp BP BP Pulse Ox Pulse Ox 09/18/20 19:50 36.7 C 78 14 131/72 96 09/18/20 14:07 97 09/18/20 14:00 36.3 C 63 16 138/72 97 09/18/20 13:21 64 122/76 96 09/18/20 12:21 75 125/70 95 09/18/20 11:51 65 116/61 94 L 09/18/20 11:26 72 110/68 96 09/18/20 10:28 35.7 C L 66 16 148/115 H 95 Orders Last 24hrs: Active Orders 24 hr Category Date Time Status Admission Status [Patient Status] [ADT] Stat ADT 09/18/20 11:54 Active Cardiac Monitoring [RC] . DIRECTED Care 09/18/20 10:29 Active Oxygen Therapy [RC] PRN Care 09/18/20 14:07 Active Telemetry Monitoring [Cardiac Monitoring] [RC] . Care 09/18/20 13:34 Active DIRECTED VTE/DVT Education [RC] PER UNIT ROUTINE Care 09/18/20 14:07 Active Vital Signs [RC] Q4H Care 09/18/20 14:07 Active Citizen Of [place] [employer] Diet [DIET] Diet 09/18/20 Lunch Active BASIC METABOLIC PANEL,BMP [CHEM] AM Lab 09/19/20 05:11 Ordered CBC WITH AUTO DIFF [HEME] AM Lab 09/19/20 05:11 Ordered MAGNESIUM [CHEM] AM Lab 09/19/20 05:11 Ordered Acetaminophen [TylenoL] Med 09/18/20 14:07 Active 650 mg PO Q4H PRN Aspirin [Halfprin] Med 09/18/20 21:00 Active 81 mg PO BEDTIME Dextrose 50% in Water Med 09/18/20 20:48 Active 50 ml IVPUSH ASDIRECTED PRN Enoxaparin [Lovenox] Med 09/18/20 16:00 Active 40 mg SUBCUT Q24H Famotidine [Pepcid] Med 09/18/20 21:00 Active 40 mg PO BEDTIME Fluticasone Propionate [Flonase] Med 09/18/20 16:20 Active 0 gm NASBOTH DAILY PRN Glucagon,Human Recombinant [GlucaGen] Med 09/18/20 20:48 Active 1 mg IM ASDIRECTED PRN Insulin Regular, Human [NovoLIN R] Med 09/18/20 21:30 Active See Protocol SUBCUT QIDACANDBED Magnesium Oxide Med 09/18/20 17:00 Active 400 mg PO BIDMEALS Sodium Chloride 0.9% [Saline Flush] Med 09/18/20 10:29 Active 10 ml FLUSH ASDIRECTED PRN Sodium Chloride 0.9% [Saline Flush] Med 09/18/20 10:29 Active 2.5 ml FLUSH ASDIRECTED PRN lisinopriL [Prinivil] Med 09/19/20 09:00 Active 10 mg PO DAILY Saline Lock Insert [OM.PC] Stat Oth 09/18/20 10:29 Ordered Code Status [Resuscitation Status] Routine Resus Stat 09/18/20 17:36 Ordered Medication Orders Acetaminophen (Acetaminophen 325 Mg Tab) 650 mg PO Q4H PRN PRN Reason: Pain (Mild 1-3)/fever Aspirin (Aspirin 81 Mg Tab.Ec) 81 mg PO BEDTIME [facility] Last Admin: 09/18/20 21:15 Dose: 81 mg Documented by: RAJI Dextrose/Water (50% Dextrose In Water 50 Ml Syringe) 50 ml IVPUSH ASDIRECTED PRN PRN Reason: Hypoglycemia Enoxaparin Sodium (Enoxaparin 40 Mg/0.4 Ml Syringe) 40 mg SUBCUT Q24H [facility] Last Admin: 09/18/20 16:06 Dose: 40 mg Documented by: KIMBERLY Famotidine (Famotidine 20 Mg Tab) 40 mg PO BEDTIME [facility] Last Admin: 09/18/20 21:15 Dose: 40 mg Documented by: RAJI Fluticasone Propionate (Fluticasone Propionate Nasal [place] 16 Gm Bottle) 0 gm NASBOTH DAILY PRN PRN Reason: ALLERGY SYMPTOMS Glucagon (Glucagon,Human Recombinant 1 Mg Vial) 1 mg IM ASDIRECTED PRN PRN Reason: Hypoglycemia Insulin Human Regular (Insulin Regular, Human 100 Units/Ml 10 Ml Vial) 0 unit SUBCUT QIDACANDBED [facility]; Protocol Last Admin: 09/18/20 21:33 Dose: 2 unit Documented by: RAJI Lisinopril (Lisinopril 10 Mg Tab) 10 mg PO DAILY [facility] Magnesium Oxide (Magnesium Oxide 400 Mg Tab) 400 mg PO BIDMEALS [facility] Last Admin: 09/18/20 17:33 Dose: 400 mg Documented by: KIMBERLY Sodium Chloride (Sodium Chloride 0.9% 10 Ml Syringe) 10 ml FLUSH ASDIRECTED PRN PRN Reason: Keep Vein Open Last Admin: 09/18/20 10:40 Dose: 10 ml Documented by: JENNY Sodium Chloride (Sodium Chloride 0.9% 2.5 Ml Syringe) 2.5 ml FLUSH ASDIRECTED PRN PRN Reason: Keep Vein Open Last Admin: 09/18/20 10:40 Dose: 2.5 ml Documented by: JENNY
[2020-09-18] MEDS ORDERED: Enoxaparin 40 MG/0.4 ML Syringe SUBCUT SCH (16:00)
[2020-09-18] MEDS ORDERED: Fluticasone Propionate Nasal Spray 16 GM Bottle NASBOTH PRN (16:20)
[2020-09-18] MEDS ORDERED: Insulin Aspart 100 Units/ML 3 ML Pen SUBCUT SCH (17:00)
[2020-09-18] MEDS: Magnesium Oxide 400 MG Tab PO SCH (17:33)
[2020-09-18] MEDS ORDERED: 50% Dextrose in Water 50 ML Syringe IVPUSH PRN (20:48)
[2020-09-18] MEDS ORDERED: Famotidine 20 MG Tab PO SCH (21:00)
[2020-09-18] MEDS ORDERED: Aspirin 81 MG Tab.EC PO SCH (21:00)
[2020-09-18] MEDS: Insulin Regular, Human 100 Units/ML 10 ML Vial SUBCUT SCH (21:33)
[2020-09-19 04:31] VITALS: BP 131/71; PULSE 84
[2020-09-19 06:13] LABS: BLOOD UREA NITROGEN,BUN 19 mg/dL (7.0-18.0); CARBON DIOXIDE,CO2 25.2 mmol/L (21.0-32.0); CHLORIDE,CL 105 mmol/L (98-107); GLUCOSE RANDOM 218 mg/dL (74-106); POTASSIUM,K 4.4 mmol/L (3.5-5.1); SODIUM,NA 139 mmol/L (136-148)
[2020-09-19] MEDS: Insulin Regular, Human 100 Units/ML 10 ML Vial SUBCUT SCH (06:56)
[2020-09-19] MEDS ORDERED: Insulin Regular, Human 100 Units/ML 10 ML Vial SUBCUT SCH (07:30)
[2020-09-19] MEDS ORDERED: Magnesium Sulfate/Water 2 GM/50 ML BAG IV ONE (07:45)
--- NOTE | 2020-09-19 08:29 | PCM.DCSUM1 ---
<Zuhair Falcon - Last Filed: 09/19/20 10:13> Discharge Summary - Hospital Course Free Text/Narrative:: 64-year-old male with past medical history to include type 2 diabetes on insulin, hypertension, hyperlipidemia, 2 prior cardiac catheterizations with no stent placements, and previous history of similar chest pain, shortness of breath nausea, lightheadedness, bradycardic occurrences. Admitted to the medical floor for ACS rule out. Patient presented to the ED with chest pain, shortness of breath, nausea, fatigue, lightheadedness. 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 Patient felt like he was in a pass out but did not lose consciousness. Patient also states that he monitored his heart rate via smart watch and noted heart rate between 40 and 45. Patient currently takes 60 mg propranolol twice daily and states that medication might have something to do with his bradycardia, lightheadedness, nausea. Upon admission to the medical floor patient states he felt much better after receiving 1 L normal saline in the ED. Patient currently denies headache, lightheadedness, dizziness, chest pain, shortness of breath, abdominal pain, fever, chills, nausea, vomiting. Patient made for observation overnight. EKG normal sinus rhythm, regular rate. Troponin x3 negative. Vitals 97% O2 saturation on room air, heart rate 63, blood pressure 138/72. Patient's vitals were stable overnight. Patient this morning denies chest pain, shortness of breath, headaches, lightheadedness, abdominal pain, nausea, vomiting. Patient was discharged early this morning prior to echocardiogram due to the fact that he became extremely aggressive. Patient threatens to call the [facility] for poor service as he was dissatisfied yesterday evening because he did not receive his nightly Humulin insulin dose of 70 units. It was explained to the patient that 70 units of his home dose of insulin with his current glucose measurements would cause significant hypoglycemia and be dangerous. Patient s tated that "I do not care, I wanted my regular insulin last night and I want my morning home dose of insulin now". Patient was on moderate dose sliding scale insulin and diabetic diet during admission. Patient's prior to discharge did not want magnesium sulfate repletion as his magnesium level this morning was 1.7. He stated that he takes magnesium at home and will do so. Patient discharged with order for outpatient echocardiogram, patient advised to resume home magnesium oxide dosage. - Discharge Data Discharge Date: 09/19/20 Discharge Disposition: Home, Self-Care 01 Condition: Good - Referral to Home Health Primary Care Physician: Dillon Cheney COMPUTER NETWORK SPECIALIST - Discharge Diagnosis/Problem(s) (1) Chest pain, rule out acute myocardial infarction SNOMED Code(s): 70186897 ICD Code: R07.9 - CHEST PAIN, UNSPECIFIED Status: Acute (2) Dehydration SNOMED Code(s): 49831647 ICD Code: E86.0 - DEHYDRATION Status: Acute (3) Dyslipidemia SNOMED Code(s): 921926143 ICD Code: E78.5 - HYPERLIPIDEMIA, UNSPECIFIED Status: Acute (4) HTN (hypertension) SNOMED Code(s): 31726479 ICD Code: I10 - ESSENTIAL (PRIMARY) HYPERTENSION Status: Acute Qualifiers: Hypertension type: essential hypertension Qualified Code(s): I10 - Essen tial (primary) hypertension (5) Type 2 diabetes mellitus SNOMED Code(s): 02647391 ICD Code: E11.9 - TYPE 2 DIABETES MELLITUS WITHOUT COMPLICATIONS Status: Acute - Discharge Plan Home Medications: Home Meds metFORMIN HCl [Metformin HCl] 1,000 mg PO BIDMEALS 09/20/15 [History] Aspirin [Adult Low Dose Aspirin EC] 81 mg PO BEDTIME 12/12/15 [History] Ascorbic Acid 500 mg PO DAILY 12/10/17 [History] Insulin Regular, Human [Humulin R U-500 Kwikpen] 100 unit SQ QAM 12/30/18 [History] Lisinopril 10 mg PO DAILY 12/30/18 [History] Cholecalciferol (Vitamin D3) [Vitamin D3] 1,000 unit PO DAILY 09/18/20 [History] Famotidine 40 mg PO BEDTIME 09/18/20 [History] Fluticasone Propionate [Flonase] 2 spray NASBOTH DAILY PRN 09/18/20 [History] Insulin Regular, Human [Humulin R U-500 Kwikpen] 70 unit SUBCUT QPM 09/18/20 [History] Magnesium Oxide 420 mg PO BIDMEALS 09/18/20 [History] Propranolol HCl [Propranolol] 60 mg PO BID 09/18/20 [History] Semaglutide [Ozempic] 0.25 mg SUBCUT MO 09/18/20 [History] Patient Handouts: Pharmacologic Stress Echocardiogram, [id number], Nonspecific Chest Pain, Adult, [id number] Forms: ED Department Discharge Referrals: Dillon Cheney, COMPUTER NETWORK SPECIALIST [Primary Care Provider] - 10/02/20 9:30 am - Discharge Summary/Plan Comment DC Time >30 min.: Yes - General Info Date of Service: 09/19/20 Subjective Update: Patient was extremely aggressive and agitated this morning, patient states he did not receive regular home dose of 70 units insulin at nighttime and 100 units insulin in the morning. Explained to the patient that insulin dosages in the hospital are based on blood glucose measurements and appropriate sliding scale insulin is given. Patient states he would like to leave immediately without further work-up to include echocardiogram. Patient also do not want to receive scheduled morning medications including IV magnesium. Patient denies chest pain, shortness of breath. - Review of Systems General: Denies: Fever Pulmonary: Denies: Shortness of Breath Cardiovascular: Denies: Chest Pain Gastrointestinal: Denies: Abdominal Pain, Nausea, Vomiting Neurological: Denies: Confusion, Dizziness Psychiatric: Denies: Confusion - Patient Data Vitals - Most Recent: Last Vital Signs Temp 98.4 F 09/19/20 04:00 Pulse 84 09/19/20 04:00 Resp 16 09/19/20 04:00 BP 131/71 09/19/20 04:00 Pulse Ox 95 09/19/20 04:00 Weight - Most Recent: 137.438 kg I&O - Last 24 hours: Intake & Output 09/18/20 09/19/20 09/19/20 22:59 06:59 14:59 Intake Total 880 1465 Output Total 0 3400 Balance 880 -1935 Lab Results - Last 24 hrs: Laboratory Results - last 24 hr 09/18/20 09/18/20 09/18/20 Range/Units 10:35 10:35 10:35 WBC 5.82 (4.0-11.0) K/uL RBC 4.84 (4.50-5.90) M/uL Hgb 14.5 (13.0-17.0) g/dL Hct 43.3 (38.0-50.0) % MCV 89.5 (80.0-98.0) fL MCH 30.0 (27.0-32.0) pg MCHC 33.5 (31.0-37.0) g/dL RDW Std Deviation 46.0 (28.0-62.0) fl RDW Coeff of Leny 14 (11.0-15.0) % Plt Count 167 (150-400) K/uL MPV 9.20 (7.40-12.00) fL Neut % (Auto) 70.0 (48.0-80.0) % Lymph % (Auto) 19.8 (16.0-40.0) % Weld % (Auto) 7.7 (0.0-15.0) % Eos % (Auto) 2.2 (0.0-7.0) % Baso % (Auto) 0.3 (0.0-1.5) % Neut # (Auto) 4.1 (1.4-5.7) K/uL Lymph # (Auto) 1.2 (0.6-2.4) K/uL Weld # (Auto) 0.5 (0.0-0.8) K/uL Eos # (Auto) 0.1 (0.0-0.7) K/uL Baso # (Auto) 0.0 (0.0-0.1) K/uL Nucleated RBC % 0.0 /100WBC Nucleated RBCs # 0 K/uL Sodium 136 (136-148) mmol/L Potassium 4.7 (3.5-5.1) mmol/L Chloride 102 (98-107) mmol/L Carbon Dioxide 22.7 (21.0-32.0) mmol/L BUN 27 H (7.0-18.0) mg/dL Creatinine 1.3 (0.8-1.3) mg/dL Est Cr Clr Drug Dosing 70.42 mL/min Estimated GFR (MDRD) 55.9 ml/min Glucose 121 H (74-106) mg/dL POC Glucose (60-110) mg/dL Hemoglobin A1c (4.5 - 6.2) % Calcium 8.9 (8.5-10.1) mg/dL Magnesium 1.6 L (1.8-2.4) mg/dL Total Bilirubin 0.6 (0.2-1.0) mg/dL AST 42 H (15-37) IU/L ALT 64 H (14-63) IU/L Alkaline Phosphatase 112 (46-116) U/L Troponin I < 0.050 (0.000-0.056) ng/mL Total Protein 7.8 (6.4-8.2) g/dL Albumin 3.6 (3.4-5.0) g/dL Globulin 4.2 H (2.6-4.0) g/dL Albumin/Globulin Ratio 0.9 (0.9-1.6) Triglycerides 97 (0-200) mg/dL Cholesterol 173 (50-200) mg/dL LDL Cholesterol, Calc 114 (60-180) mg/dL VLDL Cholesterol 19 (5-55) mg/dL HDL Cholesterol 40 (40-60) mg/dL Cholesterol/HDL Ratio 4.3 (3.3-6.0) Urine Color Urine Appearance Urine pH (5.0-8.0) Ur Specific [place] (1.001-1.035) Urine Protein (NEGATIVE) mg/dL Urine Glucose (UA) (NEGATIVE) mg/dL Urine Ketones (NEGATIVE) mg/dL Urine Occult Blood (NEGATIVE) Urine Nitrite (NEGATIVE) Urine Bilirubin (NEGATIVE) Urine Urobilinogen (<2.0) EU/dL Ur Leukocyte Esterase (NEGATIVE) Influenza Type A RNA (NEGATIVE) Influenza Type B RNA (NEGATIVE) SARS-CoV-2 RNA (ADELINA) (NEGATIVE) 09/18/20 09/18/20 09/18/20 Range/Units 10:35 11:27 13:27 WBC (4.0-11.0) K/uL RBC (4.50-5.90) M/uL Hgb (13.0-17.0) g/dL Hct (38.0-50.0) % MCV (80.0-98.0) fL MCH (27.0-32.0) pg MCHC (31.0-37.0) g/dL RDW Std Deviation (28.0-62.0) fl RDW Coeff of Leny (11.0-15.0) % Plt Count (150-400) K/uL MPV (7.40-12.00) fL Neut % (Auto) (48.0-80.0) % Lymph % (Auto) (16.0-40.0) % Weld % (Auto) (0.0-15.0) % Eos % (Auto) (0.0-7.0) % Baso % (Auto) (0.0-1.5) % Neut # (Auto) (1.4-5.7) K/uL Lymph # (Auto) (0.6-2.4) K/uL Weld # (Auto) (0.0-0.8) K/uL Eos # (Auto) (0.0-0.7) K/uL Baso # (Auto) (0.0-0.1) K/uL Nucleated RBC % /100WBC Nucleated RBCs # K/uL Sodium (136-148) mmol/L Potassium (3.5-5.1) mmol/L Chloride (98-107) mmol/L Carbon Dioxide (21.0-32.0) mmol/L BUN (7.0-18.0) mg/dL Creatinine (0.8-1.3) mg/dL Est Cr Clr Drug Dosing mL/min Estimated GFR (MDRD) ml/min Glucose (74-106) mg/dL POC Glucose (60-110) mg/dL Hemoglobin A1c 7.0 H (4.5 - 6.2) % Calcium (8.5-10.1) mg/dL Magnesium (1.8-2.4) mg/dL Total Bilirubin (0.2-1.0) mg/dL AST (15-37) IU/L ALT (14-63) IU/L Alkaline Phosphatase (46-116) U/L Troponin I < 0.050 (0.000-0.056) ng/mL Total Protein (6.4-8.2) g/dL Albumin (3.4-5.0) g/dL Globulin (2.6-4.0) g/dL Albumin/Globulin Ratio (0.9-1.6) Triglycerides (0-200) mg/dL Cholesterol (50-200) mg/dL LDL Cholesterol, Calc (60-180) mg/dL VLDL Cholesterol (5-55) mg/dL HDL Cholesterol (40-60) mg/dL Cholesterol/HDL Ratio (3.3-6.0) Urine Color Urine Appearance Urine pH (5.0-8.0) Ur Specific [place] (1.001-1.035) Urine Protein (NEGATIVE) mg/dL Urine Glucose (UA) (NEGATIVE) mg/dL Urine Ketones (NEGATIVE) mg/dL Urine Occult Blood (NEGATIVE) Urine Nitrite (NEGATIVE) Urine Bilirubin (NEGATIVE) Urine Urobilinogen (<2.0) EU/dL Ur Leukocyte Esterase (NEGATIVE) Influenza Type A RNA NEGATIVE (NEGATIVE) Influenza Type B RNA NEGATIVE (NEGATIVE) SARS-CoV-2 RNA (ADELINA) NEGATIVE (NEGATIVE) 09/18/20 09/18/20 09/18/20 Range/Units 14:43 16:30 16:30 WBC (4.0-11.0) K/uL RBC (4.50-5.90) M/uL Hgb (13.0-17.0) g/dL Hct (38.0-50.0) % MCV (80.0-98.0) fL MCH (27.0-32.0) pg MCHC (31.0-37.0) g/dL RDW Std Deviation (28.0-62.0) fl RDW Coeff of Leny (11.0-15.0) % Plt Count (150-400) K/uL MPV (7.40-12.00) fL Neut % (Auto) (48.0-80.0) % Lymph % (Auto) (16.0-40.0) % Weld % (Auto) (0.0-15.0) % Eos % (Auto) (0.0-7.0) % Baso % (Auto) (0.0-1.5) % Neut # (Auto) (1.4-5.7) K/uL Lymph # (Auto) (0.6-2.4) K/uL [place] # (Auto) (0.0-0.8) K/uL Eos # (Auto) (0.0-0.7) K/uL Baso # (Auto) (0.0-0.1) K/uL Nucleated RBC % /100WBC Nucleated RBCs # K/uL Sodium (136-148) mmol/L Potassium (3.5-5.1) mmol/L Chloride (98-107) mmol/L Carbon Dioxide (21.0-32.0) mmol/L BUN (7.0-18.0) mg/dL Creatinine (0.8-1.3) mg/dL Est Cr Clr Drug Dosing mL/min Estimated GFR (MDRD) ml/min Glucose (74-106) mg/dL POC Glucose 52 L (60-110) mg/dL Hemoglobin A1c (4.5 - 6.2) % Calcium (8.5-10.1) mg/dL Magnesium (1.8-2.4) mg/dL Total Bilirubin (0.2-1.0) mg/dL AST (15-37) IU/L ALT (14-63) IU/L Alkaline Phosphatase (46-116) U/L Troponin I < 0.050 (0.000-0.056) ng/mL Total Protein (6.4-8.2) g/dL Albumin (3.4-5.0) g/dL Globulin (2.6-4.0) g/dL Albumin/Globulin Ratio (0.9-1.6) Triglycerides (0-200) mg/dL Cholesterol (50-200) mg/dL LDL Cholesterol, Calc (60-180) mg/dL VLDL Cholesterol (5-55) mg/dL HDL Cholesterol (40-60) mg/dL Cholesterol/HDL Ratio (3.3-6.0) Urine Color YELLOW Urine Appearance CLEAR Urine pH 5.0 (5.0-8.0) Ur Specific [place] 1.020 (1.001-1.035) Urine Protein NEGATIVE (NEGATIVE) mg/dL Urine Glucose (UA) NEGATIVE (NEGATIVE) mg/dL Urine Ketones NEGATIVE (NEGATIVE) mg/dL Urine Occult Blood NEGATIVE (NEGATIVE) Urine Nitrite NEGATIVE (NEGATIVE) Urine Bilirubin NEGATIVE (NEGATIVE) Urine Urobilinogen 0.2 (<2.0) EU/dL Ur Leukocyte Esterase NEGATIVE (NEGATIVE) Influenza Type A RNA (NEGATIVE) Influenza Type B RNA (NEGATIVE) SARS-CoV-2 RNA (ADELINA) (NEGATIVE) 09/18/20 09/18/20 09/19/20 Range/Units 17:32 20:39 05:45 WBC 3.64 L (4.0-11.0) K/uL RBC 4.43 L (4.50-5.90) M/uL Hgb 13.0 (13.0-17.0) g/dL Hct 40.0 (38.0-50.0) % MCV 90.3 (80.0-98.0) fL MCH 29.3 (27.0-32.0) pg MCHC 32.5 (31.0-37.0) g/dL RDW Std Deviation 47.6 (28.0-62.0) fl RDW Coeff of Leny 14 (11.0-15.0) % Plt Count 127 L (150-400) K/uL MPV 9.30 (7.40-12.00) fL Neut % (Auto) 58.3 (48.0-80.0) % Lymph % (Auto) 28.0 (16.0-40.0) % Weld % (Auto) 10.4 (0.0-15.0) % Eos % (Auto) 3.0 (0.0-7.0) % Baso % (Auto) 0.3 (0.0-1.5) % Neut # (Auto) 2.1 (1.4-5.7) K/uL Lymph # (Auto) 1.0 (0.6-2.4) K/uL Weld # (Auto) 0.4 (0.0-0.8) K/uL Eos # (Auto) 0.1 (0.0-0.7) K/uL Baso # (Auto) 0.0 (0.0-0.1) K/uL Nucleated RBC % 0.0 /100WBC Nucleated RBCs # 0 K/uL Sodium (136-148) mmol/L Potassium (3.5-5.1) mmol/L Chloride (98-107) mmol/L Carbon Dioxide (21.0-32.0) mmol/L BUN (7.0-18.0) mg/dL Creatinine (0.8-1.3) mg/dL Est Cr Clr Drug Dosing mL/min Estimated GFR (MDRD) ml/min Glucose (74-106) mg/dL POC Glucose 151 H 175 H (60-110) mg/dL Hemoglobin A1c (4.5 - 6.2) % Calcium (8.5-10.1) mg/dL Magnesium (1.8-2.4) mg/dL Total Bilirubin (0.2-1.0) mg/dL AST (15-37) IU/L ALT (14-63) IU/L Alkaline Phosphatase (46-116) U/L Troponin I (0.000-0.056) ng/mL Total Protein (6.4-8.2) g/dL Albumin (3.4-5.0) g/dL Globulin (2.6-4.0) g/dL Albumin/Globulin Ratio (0.9-1.6) Triglycerides (0-200) mg/dL Cholesterol (50-200) mg/dL LDL Cholesterol, Calc (60-180) mg/dL VLDL Cholesterol (5-55) mg/dL HDL Cholesterol (40-60) mg/dL Cholesterol/HDL Ratio (3.3-6.0) Urine Color Urine Appearance Urine pH (5.0-8.0) Ur Specific [place] (1.001-1.035) Urine Protein (NEGATIVE) mg/dL Urine Glucose (UA) (NEGATIVE) mg/dL Urine Ketones (NEGATIVE) mg/dL Urine Occult Blood (NEGATIVE) Urine Nitrite (NEGATIVE) Urine Bilirubin (NEGATIVE) Urine Urobilinogen (<2.0) EU/dL Ur Leukocyte Esterase (NEGATIVE) Influenza Type A RNA (NEGATIVE) Influenza Type B RNA (NEGATIVE) SARS-CoV-2 RNA (ADELINA) (NEGATIVE) 09/19/20 09/19/20 Range/Units 05:45 06:53 WBC (4.0-11.0) K/uL RBC (4.50-5.90) M/uL Hgb (13.0-17.0) g/dL Hct (38.0-50.0) % MCV (80.0-98.0) fL MCH (27.0-32.0) pg MCHC (31.0-37.0) g/dL RDW Std Deviation (28.0-62.0) fl RDW Coeff of Leny (11.0-15.0) % Plt Count (150-400) K/uL MPV (7.40-12.00) fL Neut % (Auto) (48.0-80.0) % Lymph % (Auto) (16.0-40.0) % Weld % (Auto) (0.0-15.0) % Eos % (Auto) (0.0-7.0) % Baso % (Auto) (0.0-1.5) % Neut # (Auto) (1.4-5.7) K/uL Lymph # (Auto) (0.6-2.4) K/uL Weld # (Auto) (0.0-0.8) K/uL Eos # (Auto) (0.0-0.7) K/uL Baso # (Auto) (0.0-0.1) K/uL Nucleated RBC % /100WBC Nucleated RBCs # K/uL Sodium 139 (136-148) mmol/L Potassium 4.4 (3.5-5.1) mmol/L Chloride 105 (98-107) mmol/L Carbon Dioxide 25.2 (21.0-32.0) mmol/L BUN 19 H (7.0-18.0) mg/dL Creatinine 1.2 (0.8-1.3) mg/dL Est Cr Clr Drug Dosing 78.36 mL/min Estimated GFR (MDRD) > 60.0 ml/min Glucose 218 H (74-106) mg/dL POC Glucose 205 H (60-110) mg/dL Hemoglobin A1c (4.5 - 6.2) % Calcium 8.4 L (8.5-10.1) mg/dL Magnesium 1.7 L (1.8-2.4) mg/dL Total Bilirubin (0.2-1.0) mg/dL AST (15-37) IU/L ALT (14-63) IU/L Alkaline Phosphatase (46-116) U/L Troponin I (0.000-0.056) ng/mL Total Protein (6.4-8.2) g/dL Albumin (3.4-5.0) g/dL Globulin (2.6-4.0) g/dL Albumin/Globulin Ratio (0.9-1.6) Triglycerides (0-200) mg/dL Cholesterol (50-200) mg/dL LDL Cholesterol, Calc (60-180) mg/dL VLDL Cholesterol (5-55) mg/dL HDL Cholesterol (40-60) mg/dL Cholesterol/HDL Ratio (3.3-6.0) Urine Color Urine Appearance Urine pH (5.0-8.0) Ur Specific [place] (1.001-1.035) Urine Protein (NEGATIVE) mg/dL Urine Glucose (UA) (NEGATIVE) mg/dL Urine Ketones (NEGATIVE) mg/dL Urine Occult Blood (NEGATIVE) Urine Nitrite (NEGATIVE) Urine Bilirubin (NEGATIVE) Urine Urobilinogen (<2.0) EU/dL Ur Leukocyte Esterase (NEGATIVE) Influenza Type A RNA (NEGATIVE) Influenza Type B RNA (NEGATIVE) SARS-CoV-2 RNA (ADELINA) (NEGATIVE) Med Orders - Current: Current Medications Acetaminophen (Acetaminophen 325 Mg Tab) 650 mg PO Q4H PRN PRN Reason: Pain (Mild 1-3)/fever Aspirin (Aspirin 81 Mg Tab.Ec) 81 mg PO BEDTIME [facility] Last Admin: 09/18/20 21:15 Dose: 81 mg Documented by: Dextrose/Water (50% Dextrose In Water 50 Ml Syringe) 50 ml IVPUSH ASDIRECTED PRN PRN Reason: Hypoglycemia Enoxaparin Sodium (Enoxaparin 40 Mg/0.4 Ml Syringe) 40 mg SUBCUT Q24H [facility] Last Admin: 09/18/20 16:06 Dose: 40 mg Documented by: Famotidine (Famotidine 20 Mg Tab) 40 mg PO BEDTIME [facility] Last Admin: 09/18/20 21:15 Dose: 40 mg Documented by: Fluticasone Propionate (Fluticasone Propionate Nasal [place] 16 Gm Bottle) 0 gm NASBOTH DAILY PRN PRN Reason: ALLERGY SYMPTOMS Glucagon (Glucagon,Human Recombinant 1 Mg Vial) 1 mg IM ASDIRECTED PRN PRN Reason: Hypoglycemia Magnesium Sulfate (Magnesium Sulfate In Water 2 Gm/50 Ml) 2 gm in 50 mls @ 50 mls/hr IV ONETIME ONE Stop: 09/19/20 08:44 Insulin Human Regular (Insulin Regular, Human 100 Units/Ml 10 Ml Vial) 0 unit SUBCUT QIDACANDBED [facility]; Protocol Last Admin: 09/19/20 06:56 Dose: 4 unit Documented by: Lisinopril (Lisinopril 10 Mg Tab) 10 mg PO DAILY [facility] Magnesium Oxide (Magnesium Oxide 400 Mg Tab) 400 mg PO BIDMEALS [facility] Last Admin: 09/18/20 17:33 Dose: 400 mg Documented by: Sodium Chloride (Sodium Chloride 0.9% 10 Ml Syringe) 10 ml FLUSH ASDIRECTED PRN PRN Reason: Keep Vein Open Last Admin: 09/18/20 10:40 Dose: 10 ml Documented by: Sodium Chloride (Sodium Chloride 0.9% 2.5 Ml Syringe) 2.5 ml FLUSH ASDIRECTED PRN PRN Reason: Keep Vein Open Last Admin: 09/18/20 10:40 Dose: 2.5 ml Documented by: Discontinued Medications Aspirin (Aspirin 81 Mg Tab.Chew) 324 mg PO ONETIME ONE Stop: 09/18/20 10:30 Last Admin: 09/18/20 10:40 Dose: 324 mg Documented by: Dextrose/Water (50% Dextrose In Water 50 Ml Syringe) 50 ml IV ASDIRECTED PRN PRN Reason: Hypoglycemia Glucagon (Glucagon,Human Recombinant 1 Mg Vial) 1 mg IM ASDIRECTED PRN PRN Reason: Hypoglycemia Sodium Chloride (Normal Saline) 1,000 mls @ 999 mls/hr IV BOLUS ONE Stop: 09/18/20 11:29 Last Admin: 09/18/20 10:39 Dose: 999 mls/hr Documented by: Magnesium Sulfate (Magnesium Sulfate In Water 2 Gm/50 Ml) 2 gm in 50 mls @ 50 mls/hr IV ONETIME ONE Stop: 09/18/20 14:59 Last Admin: 09/18/20 14:13 Dose: 50 mls/hr Documented by: Insulin Aspart (Insulin Aspart 100 Units/Ml 3 Ml Pen) 0 unit SUBCUT TIDAC NIYAH; Protocol Last Admin: 09/18/20 19:10 Dose: Not Given Documented by: Insulin Human Regular (Insulin Regular, Human 100 Units/Ml 10 Ml Vial) 0 unit SUBCUT BIDAC NIYAH; Protocol - Exam General: Reports: Alert, Oriented. Denies: Cooperative Neurological: Denies: Normal Tone (Aggressive) Psy/Mental Status: Reports: Alert (Patient extremely agitated and aggressive this morning, patient states that he did not receive his nightly insulin dose and is very upset by that. Patient was to be discharged immediately. Physical exam was not completed.), Agitated <Clement Ram - Last Filed: 09/19/20 16:43> Discharge Summary - Hospital Course Free Text/Narrative:: I have seen and evaluated the patient. I have discussed findings and treatment plan with resident. I agree with the assessment and plan in the following note. - Referral to Home Health Primary Care Physician: Dillon Cheney NP - Patient Data Vitals - Most Recent: Last Vital Signs Temp 36.9 C 09/19/20 04:00 Pulse 84 09/19/20 04:00 Resp 16 09/19/20 04:00 BP 131/71 09/19/20 04:00 Pulse Ox 95 09/19/20 04:00 I&O - Last 24 hours: Intake & Output 09/19/20 09/19/20 09/19/20 06:59 14:59 22:59 Intake Total 1465 Output Total 3400 Balance -1935 Lab Results - Last 24 hrs: Laboratory Results - last 24 hr 09/18/20 09/18/20 09/18/20 Range/Units 16:30 16:30 17:32 WBC (4.0-11.0) K/uL RBC (4.50-5.90) M/uL Hgb (13.0-17.0) g/dL Hct (38.0-50.0) % MCV (80.0-98.0) fL MCH (27.0-32.0) pg MCHC (31.0-37.0) g/dL RDW Std Deviation (28.0-62.0) fl RDW Coeff of Leny (11.0-15.0) % Plt Count (150-400) K/uL MPV (7.40-12.00) fL Neut % (Auto) (48.0-80.0) % Lymph % (Auto) (16.0-40.0) % [place] % (Auto) (0.0-15.0) % Eos % (Auto) (0.0-7.0) % Baso % (Auto) (0.0-1.5) % Neut # (Auto) (1.4-5.7) K/uL Lymph # (Auto) (0.6-2.4) K/uL [place]eld # (Auto) (0.0-0.8) K/uL Eos # (Auto) (0.0-0.7) K/uL Baso # (Auto) (0.0-0.1) K/uL Nucleated RBC % /100WBC Nucleated RBCs # K/uL Sodium (136-148) mmol/L Potassium (3.5-5.1) mmol/L Chloride (98-107) mmol/L Carbon Dioxide (21.0-32.0) mmol/L BUN (7.0-18.0) mg/dL Creatinine (0.8-1.3) mg/dL Est Cr Clr Drug Dosing mL/min Estimated GFR (MDRD) ml/min Glucose (74-106) mg/dL POC Glucose 151 H (60-110) mg/dL Calcium (8.5-10.1) mg/dL Magnesium (1.8-2.4) mg/dL Troponin I < 0.050 (0.000-0.056) ng/mL Urine Color YELLOW Urine Appearance CLEAR Urine pH 5.0 (5.0-8.0) Ur Specific [place] 1.020 (1.001-1.035) Urine Protein NEGATIVE (NEGATIVE) mg/dL Urine Glucose (UA) NEGATIVE (NEGATIVE) mg/dL Urine Ketones NEGATIVE (NEGATIVE) mg/dL Urine Occult Blood NEGATIVE (NEGATIVE) Urine Nitrite NEGATIVE (NEGATIVE) Urine Bilirubin NEGATIVE (NEGATIVE) Urine Urobilinogen 0.2 (<2.0) EU/dL Ur Leukocyte Esterase NEGATIVE (NEGATIVE) 09/18/20 09/19/20 09/19/20 Range/Units 20:39 05:45 05:45 WBC 3.64 L (4.0-11.0) K/uL RBC 4.43 L (4.50-5.90) M/uL Hgb 13.0 (13.0-17.0) g/dL Hct 40.0 (38.0-50.0) % MCV 90.3 (80.0-98.0) fL MCH 29.3 (27.0-32.0) pg MCHC 32.5 (31.0-37.0) g/dL RDW Std Deviation 47.6 (28.0-62.0) fl RDW Coeff of Leny 14 (11.0-15.0) % Plt Count 127 L (150-400) K/uL MPV 9.30 (7.40-12.00) fL Neut % (Auto) 58.3 (48.0-80.0) % Lymph % (Auto) 28.0 (16.0-40.0) % [place] % (Auto) 10.4 (0.0-15.0) % Eos % (Auto) 3.0 (0.0-7.0) % Baso % (Auto) 0.3 (0.0-1.5) % Neut # (Auto) 2.1 (1.4-5.7) K/uL Lymph # (Auto) 1.0 (0.6-2.4) K/uL Weld # (Auto) 0.4 (0.0-0.8) K/uL Eos # (Auto) 0.1 (0.0-0.7) K/uL Baso # (Auto) 0.0 (0.0-0.1) K/uL Nucleated RBC % 0.0 /100WBC Nucleated RBCs # 0 K/uL Sodium 139 (136-148) mmol/L Potassium 4.4 (3.5-5.1) mmol/L Chloride 105 (98-107) mmol/L Carbon Dioxide 25.2 (21.0-32.0) mmol/L BUN 19 H (7.0-18.0) mg/dL Creatinine 1.2 (0.8-1.3) mg/dL Est Cr Clr Drug Dosing 78.36 mL/min Estimated GFR (MDRD) > 60.0 ml/min Glucose 218 H (74-106) mg/dL POC Glucose 175 H (60-110) mg/dL Calcium 8.4 L (8.5-10.1) mg/dL Magnesium 1.7 L (1.8-2.4) mg/dL Troponin I (0.000-0.056) ng/mL Urine Color Urine Appearance Urine pH (5.0-8.0) Ur Specific [place] (1.001-1.035) Urine Protein (NEGATIVE) mg/dL Urine Glucose (UA) (NEGATIVE) mg/dL Urine Ketones (NEGATIVE) mg/dL Urine Occult Blood (NEGATIVE) Urine Nitrite (NEGATIVE) Urine Bilirubin (NEGATIVE) Urine Urobilinogen (<2.0) EU/dL Ur Leukocyte Esterase (NEGATIVE) 09/19/20 Range/Units 06:53 WBC (4.0-11.0) K/uL RBC (4.50-5.90) M/uL Hgb (13.0-17.0) g/dL Hct (38.0-50.0) % MCV (80.0-98.0) fL MCH (27.0-32.0) pg MCHC (31.0-37.0) g/dL RDW Std Deviation (28.0-62.0) fl RDW Coeff of Leny (11.0-15.0) % Plt Count (150-400) K/uL MPV (7.40-12.00) fL Neut % (Auto) (48.0-80.0) % Lymph % (Auto) (16.0-40.0) % [place] % (Auto) (0.0-15.0) % Eos % (Auto) (0.0-7.0) % Baso % (Auto) (0.0-1.5) % Neut # (Auto) (1.4-5.7) K/uL Lymph # (Auto) (0.6-2.4) K/uL [place] # (Auto) (0.0-0.8) K/uL Eos # (Auto) (0.0-0.7) K/uL Baso # (Auto) (0.0-0.1) K/uL Nucleated RBC % /100WBC Nucleated RBCs # K/uL Sodium (136-148) mmol/L Potassium (3.5-5.1) mmol/L Chloride (98-107) mmol/L Carbon Dioxide (21.0-32.0) mmol/L BUN (7.0-18.0) mg/dL Creatinine (0.8-1.3) mg/dL Est Cr Clr Drug Dosing mL/min Estimated GFR (MDRD) ml/min Glucose (74-106) mg/dL POC Glucose 205 H (60-110) mg/dL Calcium (8.5-10.1) mg/dL Magnesium (1.8-2.4) mg/dL Troponin I (0.000-0.056) ng/mL Urine Color Urine Appearance Urine pH (5.0-8.0) Ur Specific [place] (1.001-1.035) Urine Protein (NEGATIVE) mg/dL Urine Glucose (UA) (NEGATIVE) mg/dL Urine Ketones (NEGATIVE) mg/dL Urine Occult Blood (NEGATIVE) Urine Nitrite (NEGATIVE) Urine Bilirubin (NEGATIVE) Urine Urobilinogen (<2.0) EU/dL Ur Leukocyte Esterase (NEGATIVE) Med Orders - Current: Current Medications Discontinued Medications Acetaminophen (Acetaminophen 325 Mg Tab) 650 mg PO Q4H PRN PRN Reason: Pain (Mild 1-3)/fever Aspirin (Aspirin 81 Mg Tab.Chew) 324 mg PO ONETIME ONE Stop: 09/18/20 10:30 Last Admin: 09/18/20 10:40 Dose: 324 mg Documented by: Aspirin (Aspirin 81 Mg Tab.Ec) 81 mg PO BEDTIME [facility] Last Admin: 09/18/20 21:15 Dose: 81 mg Documented by: Dextrose/Water (50% Dextrose In Water 50 Ml Syringe) 50 ml IV ASDIRECTED PRN PRN Reason: Hypoglycemia Dextrose/Water (50% Dextrose In Water 50 Ml Syringe) 50 ml IVPUSH ASDIRECTED PRN PRN Reason: Hypoglycemia Enoxaparin Sodium (Enoxaparin 40 Mg/0.4 Ml Syringe) 40 mg SUBCUT Q24H NIYAH Last Admin: 09/18/20 16:06 Dose: 40 mg Documented by: Famotidine (Famotidine 20 Mg Tab) 40 mg PO BEDTIME NIYAH Last Admin: 09/18/20 21:15 Dose: 40 mg Documented by: Fluticasone Propionate (Fluticasone Propionate Nasal [place] 16 Gm Bottle) 0 gm NASBOTH DAILY PRN PRN Reason: ALLERGY SYMPTOMS Glucagon (Glucagon,Human Recombinant 1 Mg Vial) 1 mg IM ASDIRECTED PRN PRN Reason: Hypoglycemia Glucagon (Glucagon,Human Recombinant 1 Mg Vial) 1 mg IM ASDIRECTED PRN PRN Reason: Hypoglycemia Sodium Chloride (Normal Saline) 1,000 mls @ 999 mls/hr IV BOLUS ONE Stop: 09/18/20 11:29 Last Admin: 09/18/20 10:39 Dose: 999 mls/hr Documented by: Magnesium Sulfate (Magnesium Sulfate In Water 2 Gm/50 Ml) 2 gm in 50 mls @ 50 mls/hr IV ONETIME ONE Stop: 09/18/20 14:59 Last Admin: 09/18/20 14:13 Dose: 50 mls/hr Documented by: Magnesium Sulfate (Magnesium Sulfate In Water 2 Gm/50 Ml) 2 gm in 50 mls @ 50 mls/hr IV ONETIME ONE Stop: 09/19/20 08:44 Last Admin: 09/19/20 10:30 Dose: Not Given Documented by: Insulin Aspart (Insulin Aspart 100 Units/Ml 3 Ml Pen) 0 unit SUBCUT TIDAC [facility]; Protocol Last Admin: 09/18/20 19:10 Dose: Not Given Documented by: Insulin Human Regular (Insulin Regular, Human 100 Units/Ml 10 Ml Vial) 0 unit SUBCUT BIDAC [facility]; Protocol Insulin Human Regular (Insulin Regular, Human 100 Units/Ml 10 Ml Vial) 0 unit SUBCUT QIDACANDBED [facility]; Protocol Last Admin: 09/19/20 06:56 Dose: 4 unit Documented by: Lisinopril (Lisinopril 10 Mg Tab) 10 mg PO DAILY [facility] Last Admin: 09/19/20 10:30 Dose: Not Given Documented by: Magnesium Oxide (Magnesium Oxide 400 Mg Tab) 400 mg PO BIDMEALS [facility] Last Admin: 09/19/20 10:30 Dose: Not Given Documented by: Sodium Chloride (Sodium Chloride 0.9% 10 Ml Syringe) 10 ml FLUSH ASDIRECTED PRN PRN Reason: Keep Vein Open Last Admin: 09/18/20 10:40 Dose: 10 ml Documented by: Sodium Chloride (Sodium Chloride 0.9% 2.5 Ml Syringe) 2.5 ml FLUSH ASDIRECTED PRN PRN Reason: Keep Vein Open Last Admin: 09/18/20 10:40 Dose: 2.5 ml Documented by:
[2020-09-19] MEDS ORDERED: Lisinopril 10 MG Tab PO SCH (09:00)
[2020-09-19] MEDS: Magnesium Oxide 400 MG Tab PO SCH (10:30)
== END 2020-09-19 09:40 | disposition home or self-care (01) ==
LOC: MW.ED 10:17 → MW.MS 12:32
PROVIDERS: ADMIT Student in an Organized Health Care Education/Training Program; ATTEND Student in an Organized Health Care Education/Training Program
DX: R07.89 Other chest pain (principal); E86.0 Dehydration; I10 Essential (primary) hypertension; E78.5 Hyperlipidemia, unspecified; E11.9 Type 2 diabetes mellitus without complications; R74.01 Elevation of levels of liver transaminase levels; I25.10 Atherosclerotic heart disease of native coronary artery without angina pectoris; E78.00 Pure hypercholesterolemia, unspecified; R91.8 Other nonspecific abnormal finding of lung field; Z20.822 Contact with and (suspected) exposure to COVID-19; Z88.2 Allergy status to sulfonamides; Z91.030 Bee allergy status; Z91.09 Other allergy status, other than to drugs and biological substances; Z79.82 Long term (current) use of aspirin; Z79.4 Long term (current) use of insulin; Z79.899 Other long term (current) drug therapy; Z86.16 Personal history of COVID-19; Z98.890 Other specified postprocedural states
CPT/HCPCS: 0240U; 36415; 71045; 80048; 80053; 80061; 81003; 82962; 83036; 83735; 84484; 85025; 93005; 96365; 96372; 99285; A9270; G0378; J1650; J1815; J3475; J7030; 93010; 99217; 99218; 99284

== ENCOUNTER 2020-10-21 11:26 | Emergency (ER) | payer OTHER ==
[2020-10-21] MEDS ORDERED: Sodium Chloride 0.9% 10 ML Syringe FLUSH PRN (11:46)
[2020-10-21] MEDS ORDERED: Sodium Chloride 0.9% 2.5 ML Syringe FLUSH PRN (11:46)
--- NOTE | 2020-10-21 11:59 | EDM.PDOC ---
ED HPI GENERAL MEDICAL PROBLEM - General Chief Complaint: General Stated Complaint: ABD PAIN Time Seen by Provider: 10/21/20 11:28 Source of Information: Reports: Patient History Limitations: Reports: No Limitations - History of Present Illness INITIAL COMMENTS - FREE TEXT/NARRATIVE: HISTORY AND PHYSICAL: History of present illness: Patient is a 64-year-old male who presents to the ED today with concern of left lower quadrant abdominal pain that has been ongoing for the past several weeks. Patient states he is also noticed a decrease in bowel movements and states he is having a hard time passing solid bowel movements but is able to have a bowel movement if he takes enough magnesium citrate to induce diarrhea; states his last BM was this morning but took Magnesium Citrate last night. Patient states he is also had a few episodes of vomiting over the past several days but states that this has not been constant and is intermittent and has been eating and drinking without difficulty. Patient states that he was concerned about possible hernia causing his symptoms and states that when he woke up this morning, the left lower quadrant pain is radiating into the left testicle. Patient denies any penile drainage. Patient states he has a history of appendectomy and "a fixed varicocele" but denies any other abdominal surgeries. Patient states he has had diverticulitis in the past and was concerned that this could also be a flare of his diverticulitis. Patient has a history of hypertension, hyperlipidemia, coronary artery disease, GERD, and type 2 diabetes. Patient states he does have some chronic liver and kidney issues and is in the process of being evaluated for an autoimmune issue. Patient denies fever, chills, chest pain, shortness of breath, or cough. Denies headache, neck stiff ness, change in vision, syncope, or near syncope. Denies diarrhea, constipation, or dysuria. Has not noted any blood in urine or stool. Patient has been eating and drinking appropriately. Review of systems: As per history of present illness and below otherwise all systems reviewed and negative. Past medical history: As per history of present illness and as reviewed below otherwise noncontributory. Surgical history: As per history of present illness and as reviewed below otherwise noncontributory. Social history: See social history for further information Family history: As per history of present illness and as reviewed below otherwise noncontributory. Physical exam: General: Patient is alert, oriented, and in no acute distress. Patient laying comfortably on exam table. Vitals stable and reviewed by me. HEENT: Atraumatic, normocephalic, pupils equal and reactive bilaterally, negative for conjunctival pallor or scleral icterus, mucous membranes moist, TMs normal bilaterally, throat clear, neck supple, nontender, trachea midline. No drooling or trismus noted. No meningeal signs. No hot potato voice noted. Lungs: Clear to auscultation, breath sounds equal bilaterally, chest nontender. Heart: S1S2, regular rate and rhythm without overt murmur Abdomen: Exam of abdomen limited due to body habitus. Otherwise, soft, nondistended, mild LLQ tenderness without guarding, negative bailey/rebound. Negative for masses or hepatosplenomegaly. Negative for costovertebral tenderness. Pelvis: Stable nontender. Genitourinary: Ambulance Driver Paramedic at bedside Lynnette Tabares RN. External genitalia is grossly unremarkable. No pain of the testicles bilaterally, no obvious hernias, masses, lesions noted. No penile drainage noted. Rectal: Deferred. Skin: Intact, warm, dry. No lesions or rashes noted. Extremities: Atraumatic, negative for cords or calf pain. Neurovascular unremarkable. Neuro: Awake, alert, oriented. Cranial nerves II through XII unremarkable. Cereb ellum unremarkable. Motor and sensory unremarkable throughout. Exam nonfocal. Notes: Initial exam, patient is vitally stable, nontoxic, and well-appearing. He does have some mild left lower quadrant tenderness without guarding. Will obtain lab work as well as ultrasound of the testicles, and abdominal pelvic CT. See Dr. Umanzor dictation for specific EKG interpretation. Ventricular bigeminy with rate 100. No STEMI or acute findings. CBC is unremarkable. CMP shows mild elevation in BUN at 22, creatinine at 1.4, magnesium at 1.7. AST 43, ALT 69, and alk phos at 148. These mild derangements and chemistry are chronic from past lab evaluation and stable from prior lab work. UA is clear. Scrotum and contents ultrasound shows normal testicles and no acute findings. Abd/Pelvic CT scan shows mesenteric panniculitis the left abdomen with no other acute findings in the abdomen or pelvis. Diffuse hepatic steatosis. Upon reevaluation of patient, remains vitally stable, nontoxic and well-appea ring. He remains comfortable on exam. Signs symptoms that were prompt return to the ED thoroughly discussed with patient. Discussed importance for follow-up with a primary care provider and for repeat labwork. Voices understanding and is agreeable to plan of care. Denies any further questions or concerns at this time. Diagnostics: EKG, CBC, CMP, UA, G&C, Scrotum and Contents US, Abd/Pelvic CT w cont, Lipase Therapeutics: Saline lock, Magnesium Prescription: None Impression: Mesenteric Panniculitis Hypomagnesia Chronic kidney disease Transaminitis, stable Plan: 1. You can alternate ibuprofen and tylenol as directed for pain and discomfort. 2. Follow up with your primary care provider as discussed. Return to the ED as needed and as discussed. Definitive disposition and diagnosis as appropriate pending reevaluation and review of above. left lower abdomen Pain Score (Numeric/FACES): 1 - Related Data Allergies Allergy/AdvReac Type Severity Reaction Status Date / Time gemfibrozil Allergy Hives Verified 10/21/20 11:33 Sulfa (Sulfonamide Allergy Other Verified 10/21/20 11:33 Antibiotics) bee stings Allergy Swelling Uncoded 10/21/20 11:33 Home Meds: Home Meds metFORMIN HCl [Metformin HCl] 1,000 mg PO BIDMEALS 09/20/15 [History] Aspirin [Adult Low Dose Aspirin EC] 81 mg PO BEDTIME 12/12/15 [History] Ascorbic Acid 500 mg PO DAILY 12/10/17 [History] Insulin Regular, Human [Humulin R U-500 Kwikpen] 100 unit SQ QAM 12/30/18 [History] Lisinopril 10 mg PO DAILY 12/30/18 [History] Cholecalciferol (Vitamin D3) [Vitamin D3] 1,000 unit PO DAILY 09/18/20 [History] Famotidine 40 mg PO BEDTIME 09/18/20 [History] Fluticasone Propionate [Flonase] 2 spray NASBOTH DAILY PRN 09/18/20 [History] Insulin Regular, Human [Humulin R U-500 Kwikpen] 70 unit SUBCUT QPM 09/18/20 [History] Magnesium Oxide 420 mg PO BIDMEALS 09/18/20 [History] Propranolol HCl [Propranolol] 60 mg PO DAILY 09/18/20 [History] Semaglutide [Ozempic] 0.25 mg SUBCUT MO 03/17/21 [History] Past Medical History - Past Health History Medical/Surgical History: Denies Medical/Surgical History HEENT History: Reports: Allergic Rhinitis, Impaired Vision Other HEENT History: uses reading glasses Cardiovascular History: Reports: CAD, High Cholesterol, Hypertension Other Cardiovascular History: "Heart skips a beat every so often". Atypical chest pain, 40% occlusion RCA, on beta stephen and nitrates. 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 Gastrointestinal History: Reports: None Other Gastrointestinal History: occasional GERD, diverticulitis Genitourinary History: Reports: None Other Genitourinary History: pt states he has history of kidney issues when he beomes dehydrated Musculoskeletal History: Reports: Arthritis, Fracture Other Musculoskeletal History: hx of fx right wrist, 2 fingers right hand, 2 ribs Neurological History: Reports: None Other Neuro History: tremor to left hand, bulging disk in spine Psychiatric History: Reports: None Endocrine/Metabolic History: Reports: Diabetes, Type II Other Endocrine/Metabolic History: on insulin, basal dose bid and sliding scale with meals. Hematologic History: Reports: None Immunologic History: Reports: None Oncologic (Cancer) History: Reports: None Dermatologic History: Reports: None Other Dermatologic History: melanoma removed from lookback coordinator. and basal cell over neck - Infectious Disease History Infectious Disease History: Reports: Chicken Pox, Measles, Mumps, Novel Coronavirus - Past Surgical History Head Surgeries/Procedures: Reports: None HEENT Surgical History: Reports: Oral Surgery Cardiovascular Surgical History: Reports: None Respiratory Surgical History: Reports: None GI Surgical History: Reports: Appendectomy, Colonoscopy Male Surgical History: Reports: Varicocele Resection Endocrine Surgical History: Reports: None Neurological Surgical History: Reports: None Musculoskeletal Surgical History: Reports: Knee Replacement, Shoulder Surgery Other Musculoskeletal Surgeries/Procedures:: total knee x 2/ Rotator cuff surgery right shoulder. Oncologic Surgical History: Reports: None Dermatological Surgical History: Reports: None Social & Family History - Family History Family Medical History: No Pertinent Family History HEENT: Reports: Cataract Cardiac: Reports: Bypass, CAD, [place] Endocrine/Metabolic: Reports: Diabetes, type II Oncologic: Reports: Lung, Prostate - Tobacco Use Tobacco Use Status *Q: Never Tobacco User - Caffeine Use Caffeine Use: Reports: Coffee, Tea Other Caffeine Use: 1 cup coffee and 1 Diet Mountain Dew per day Caffeine Use Comment: 1cup/day - Recreational Drug Use Recreational Drug Use: No ED ROS GENERAL - Review of Systems Review Of Systems: Comprehensive ROS is negative, except as noted in HPI. ED EXAM, GENERAL - Physical Exam Exam: See Below (see dictation) Course - Vital Signs Last Recorded V/S: Last Vital Signs Temp 98.4 F 10/21/20 13:26 Pulse 78 10/21/20 15:11 Resp 20 10/21/20 13:26 BP 152/78 H 10/21/20 15:11 Pulse Ox 96 10/21/20 13:26 - Orders/Labs/Meds Orders: Active Orders 24 hr Category Date Time Status Scrotum and Contents [US] Stat Exams 10/21/20 11:47 Taken CHLAMYDIA AND GONORRHEA BY TMA Stat Lab 10/21/20 14:00 Received Saline Lock Insert [OM.PC] Stat Oth 10/21/20 11:46 Ordered Labs: Laboratory Tests 10/21/20 10/21/20 10/21/20 Range/Units 12:00 12:00 12:00 WBC 8.41 (4.0-11.0) K/uL RBC 5.28 (4.50-5.90) M/uL Hgb 15.7 (13.0-17.0) g/dL Hct 47.1 (38.0-50.0) % MCV 89.2 (80.0-98.0) fL MCH 29.7 (27.0-32.0) pg MCHC 33.3 (31.0-37.0) g/dL RDW Std Deviation 45.9 (28.0-62.0) fl RDW Coeff of Leny 14 (11.0-15.0) % Plt Count 196 (150-400) K/uL MPV 9.10 (7.40-12.00) fL Neut % (Auto) 72.1 (48.0-80.0) % Lymph % (Auto) 18.2 (16.0-40.0) % [place] % (Auto) 5.7 (0.0-15.0) % Eos % (Auto) 3.8 (0.0-7.0) % Baso % (Auto) 0.2 (0.0-1.5) % Neut # (Auto) 6.1 H (1.4-5.7) K/uL Lymph # (Auto) 1.5 (0.6-2.4) K/uL [place] # (Auto) 0.5 (0.0-0.8) K/uL Eos # (Auto) 0.3 (0.0-0.7) K/uL Baso # (Auto) 0.0 (0.0-0.1) K/uL Nucleated RBC % 0.0 /100WBC Nucleated RBCs # 0 K/uL Sodium 140 (136-148) mmol/L Potassium 4.6 (3.5-5.1) mmol/L Chloride 103 (98-107) mmol/L Carbon Dioxide 29.3 (21.0-32.0) mmol/L BUN 22 H (7.0-18.0) mg/dL Creatinine 1.4 H (0.8-1.3) mg/dL Est Cr Clr Drug Dosing 67.17 mL/min Estimated GFR (MDRD) 51.4 ml/min Glucose 120 H (74-106) mg/dL POC Glucose (70-99) mg/dL Calcium 9.7 (8.5-10.1) mg/dL Magnesium 1.7 L (1.8-2.4) mg/dL Total Bilirubin 0.3 (0.2-1.0) mg/dL AST 43 H (15-37) IU/L ALT 69 H (14-63) IU/L Alkaline Phosphatase 148 H (46-116) U/L Total Protein 8.3 H (6.4-8.2) g/dL Albumin 3.7 (3.4-5.0) g/dL Globulin 4.6 H (2.6-4.0) g/dL Albumin/Globulin Ratio 0.8 L (0.9-1.6) Lipase 97 (73-393) U/L Urine Color Urine Appearance Urine pH (5.0-8.0) Ur Specific [place] (1.001-1.035) Urine Protein (NEGATIVE) mg/dL Urine Glucose (UA) (NEGATIVE) mg/dL Urine Ketones (NEGATIVE) mg/dL Urine Occult Blood (NEGATIVE) Urine Nitrite (NEGATIVE) Urine Bilirubin (NEGATIVE) Urine Urobilinogen (<2.0) EU/dL Ur Leukocyte Esterase (NEGATIVE) 10/21/20 10/21/20 Range/Units 14:05 15:03 WBC (4.0-11.0) K/uL RBC (4.50-5.90) M/uL Hgb (13.0-17.0) g/dL Hct (38.0-50.0) % MCV (80.0-98.0) fL MCH (27.0-32.0) pg MCHC (31.0-37.0) g/dL RDW Std Deviation (28.0-62.0) fl RDW Coeff of [place] (11.0-15.0) % Plt Count (150-400) K/uL MPV (7.40-12.00) fL Neut % (Auto) (48.0-80.0) % Lymph % (Auto) (16.0-40.0) % [place] % (Auto) (0.0-15.0) % Eos % (Auto) (0.0-7.0) % Baso % (Auto) (0.0-1.5) % Neut # (Auto) (1.4-5.7) K/uL Lymph # (Auto) (0.6-2.4) K/uL [place] # (Auto) (0.0-0.8) K/uL Eos # (Auto) (0.0-0.7) K/uL Baso # (Auto) (0.0-0.1) K/uL Nucleated RBC % /100WBC Nucleated RBCs # K/uL Sodium (136-148) mmol/L Potassium (3.5-5.1) mmol/L Chloride (98-107) mmol/L Carbon Dioxide (21.0-32.0) mmol/L BUN (7.0-18.0) mg/dL Creatinine (0.8-1.3) mg/dL Est Cr Clr Drug Dosing mL/min Estimated GFR (MDRD) ml/min Glucose (74-106) mg/dL POC Glucose 50 L* (70-99) mg/dL Calcium (8.5-10.1) mg/dL Magnesium (1.8-2.4) mg/dL Total Bilirubin (0.2-1.0) mg/dL AST (15-37) IU/L ALT (14-63) IU/L Alkaline Phosphatase (46-116) U/L Total Protein (6.4-8.2) g/dL Albumin (3.4-5.0) g/dL Globulin (2.6-4.0) g/dL Albumin/Globulin Ratio (0.9-1.6) Lipase (73-393) U/L Urine Color YELLOW Urine Appearance CLEAR Urine pH 6.0 (5.0-8.0) Ur Specific [place] 1.010 (1.001-1.035) Urine Protein NEGATIVE (NEGATIVE) mg/dL Urine Glucose (UA) NEGATIVE (NEGATIVE) mg/dL Urine Ketones NEGATIVE (NEGATIVE) mg/dL Urine Occult Blood NEGATIVE (NEGATIVE) Urine Nitrite NEGATIVE (NEGATIVE) Urine Bilirubin NEGATIVE (NEGATIVE) Urine Urobilinogen 0.2 (<2.0) EU/dL Ur Leukocyte Esterase NEGATIVE (NEGATIVE) Meds: Medications Discontinued Medications Generic Name Dose Route Start Last Admin Trade Name Freq PRN Reason Stop Dose Admin Magnesium Sulfate 4 gm/ Premix 100 mls @ 25 mls/hr 10/21/20 13:18 10/21/20 13:32 IV 10/21/20 17:17 25 mls/hr ONETIME ONE Administration Sodium Chloride 10 ml 10/21/20 11:46 10/21/20 13:16 Sodium Chloride 0.9% 10 Ml Syringe FLUSH 10 ml ASDIRECTED PRN Administration Keep Vein Open Sodium Chloride 2.5 ml 10/21/20 11:46 10/21/20 13:11 Sodium Chloride 0.9% 2.5 Ml Syringe FLUSH 2.5 ml ASDIRECTED PRN Administration Keep Vein Open Departure - Departure Time of Disposition: 13:54 Disposition: Home, Self-Care 01 Clinical Impression: Mesenteric panniculitis, Transaminitis, Hypomagnesemia Chronic kidney disease Qualifiers: Chronic kidney disease stage: unspecified stage Qualified Code(s): N18.9 - Chronic kidney disease, unspecified - Discharge Information Referrals: Dillon Cheney NP [Primary Care Provider] - Forms: ED Department Discharge Additional Instructions: The following information is given to patients seen in the emergency department who are being discharged to home. This information is to outline your options for follow-up care. We provide all patients seen in our emergency department with a follow-up referral. The need for follow-up, as well as the timing and circumstances, are variable depending upon the specifics of your emergency department visit. If you don't have a primary care physician on staff, we will provide you with a referral. We always advise you to contact your personal physician following an emergency department visit to inform them of the circumstance of the visit and for follow-up with them and/or the need for any referrals to a consulting specialist. The emergency department will also refer you to a specialist when appropriate. This referral assures that you have the opportunity for follow-up care with a specialist. All of these measure are taken in an effort to provide you with optimal care, which includes your follow-up. Under all circumstances we always encourage you to contact your private physician who remains a resource for coordinating your care. When calling for follow-up care, please make the office aware that this follow-up is from your recent emergency room visit. If for any reason you are refused follow-up, please contact the [facility] Emergency Department at and asked to speak to the emergency department charge nurse. [facility] [address] [place] [id number] [facility] [address] [place] [id number] 1. You can alternate ibuprofen and tylenol as directed for pain and discomfort. 2. Follow up with your primary care provider as discussed. Return to the ED as needed and as discussed. Sepsis Event Note (ED) - Evaluation Sepsis Screening Result: No Definite Risk - Focused Exam Vital Signs: Vital Signs Temp Pulse Resp BP Pulse Ox 10/21/20 15:11 78 152/78 H 10/21/20 13:26 98.4 F 77 20 119/72 96 10/21/20 11:35 96.3 F L 51 L 18 159/71 H 98 - My Orders Last 24 Hours: My Active Orders 10/21/20 11:46 Saline Lock Insert [OM.PC] Stat 10/21/20 11:47 Scrotum and Contents [US] Stat 10/21/20 14:00 CHLAMYDIA AND GONORRHEA BY TMA Stat - Assessment/Plan Last 24 Hours: My Active Orders 10/21/20 11:46 Saline Lock Insert [OM.PC] Stat 10/21/20 11:47 Scrotum and Contents [US] Stat 10/21/20 14:00 CHLAMYDIA AND GONORRHEA BY TMA Stat
--- NOTE | 2020-10-21 12:27 | PCM.EKG ---
#1 Interpretation EKG Date: 10/21/20 Time: 12:26 EKG Interpretation Comments: Sinus tachycardia rate of 106 frequent PVCs with bigeminy pattern no acute ischemia
[2020-10-21 12:33] LABS: CARBON DIOXIDE,CO2 29.3 mmol/L (21.0-32.0); POTASSIUM,K 4.6 mmol/L (3.5-5.1)
--- NOTE | 2020-10-21 13:08 | US ---
INDICATION: Left testicular pain, swelling TECHNIQUE: Ultrasound of the scrotum and contents. Sonographic michael scale images were obtained with spectral and color Doppler waveform and spectral waveform analysis of the testicles. COMPARISON: None FINDINGS: Right testicle: 2.4 centimeter x 1.6 centimeter x 1.9 centimeter. Normal echotexture. No masses. No suspicious calcifications. Normal arterial and venous and blood flow using Doppler and spectral waveform analysis. Left testicle: 2.6 centimeter x 1.4 centimeter x 2.1 centimeter. Normal echotexture. No masses. No suspicious calcifications. Normal arterial and venous and blood flow using Doppler and spectral waveform analysis. Epididymis: Unremarkable bilaterally. Normal blood flow. Other: Small bilateral hydroceles. No sign of varicocele. Scrotal wall is normal. IMPRESSION: Sonographically normal testicles, right and left epididymis. Small bilateral hydroceles. Dictated by Porter Nicole MD @ Oct 21 2020 12:59PM Signed by Dr. Porter Nicole @ Oct 21 2020 1:06PM
[2020-10-21] MEDS ORDERED: Magnesium Sulfate/Water 4 GM in Premix Bag 1 BAG IV ONE (13:18)
--- NOTE | 2020-10-21 13:37 | CT ---
INDICATION: Left lower quadrant pain. TECHNIQUE: CT of the abdomen and pelvis with 100 cc Isovue 370 IV contrast. Coronal and sagittal reconstructions. COMPARISON: None. FINDINGS: Diffuse hepatic steatosis. Hepatic and portal veins are patent. Small layering gallstone. No evidence of gallbladder inflammation. No biliary dilation. The spleen, pancreas, and adrenal glands are negative. Symmetric enhancement of the kidneys. Right renal cyst. No hydronephrosis. No obstructing urinary calculi. The bladder and prostate gland are unremarkable. Fat containing left inguinal hernia. Small diverticulum at the duodenojejunal junction. No bowel dilation. Colonic diverticulosis without evidence of diverticulitis. The appendix is not identified, however there are no secondary signs of inflammation in the right lower quadrant. No intraperitoneal free air or fluid. There is fairly extensive haziness of the mesentery throughout the left abdomen with multiple mildly prominent mesenteric lymph nodes likely representing mesenteric panniculitis (for example series 201, image 88 and series 203, image 55). No associated vascular occlusion is identified. No lymphadenopathy by size criteria. Aortoiliac vascular calcifications. Degenerative changes of the spine. The lung bases are clear. Coronary artery calcifications. IMPRESSION: 1. Findings compatible with mesenteric panniculitis throughout the left abdomen. 2. No other acute findings in the abdomen or pelvis. 3. Diffuse hepatic steatosis. Please note that all CT scans at this facility use dose modulation, iterative reconstruction, and/or weight-based dosing when appropriate to reduce radiation dose to as low as reasonably achievable. Dictated by Ann Roper MD @ Oct 21 2020 1:24PM Signed by Dr. Ann Roper @ Oct 21 2020 1:35PM
[2020-10-21 15:13] VITALS: BP 152/78; PULSE 78
--- NOTE | 2020-10-21 17:56 | US ---
EXAM DATE: 10/21/20 PATIENT'S AGE: 64 Patient: MOI MADRID [facility] 1955 Study: US-Testicle -10/21/2020 12:49:42 PM Ordering Physician: ED Provider Temporary Final Report: INDICATION: Left testicular pain, swelling TECHNIQUE: Ultrasound of the scrotum and contents. Sonographic michael scale images were obtained with spectral and color Doppler waveform and spectral waveform analysis of the testicles. COMPARISON: None FINDINGS: Right testicle: 2.4 centimeter x 1.6 centimeter x 1.9 centimeter. Normal echotexture. No masses. No suspicious calcifications. Normal arterial and venous and blood flow using Doppler and spectral waveform analysis. Left testicle: 2.6 centimeter x 1.4 centimeter x 2.1 centimeter. Normal echotexture. No masses. No suspicious calcifications. Normal arterial and venous and blood flow using Doppler and spectral waveform analysis. Epididymis: Unremarkable bilaterally. Normal blood flow. Other: Small bilateral hydroceles. No sign of varicocele. Scrotal wall is normal. IMPRESSION: Sonographically normal testicles, right and left epididymis. Small bilateral hydroceles. Dictated by Porter Nicole MD @ Oct 21 2020 12:59PM Signed by: Porter Nicole MD @10/21/2020 1:06:58 PM (Electronic Signature) Report Signed by Proxy. JO-ANN
[2020-10-21] MEDS ORDERED: Iopamidol 755 MG/ML 500 ML Multipack Bottle IVPUSH STA (18:32)
[2020-10-23 17:08] LABS: C.TRACHOMATIS BY TMA Negative (Negative); N.GONORRHOEAE BY TMA Negative (Negative)
== END 2020-10-21 15:12 | disposition home or self-care (01) ==
LOC: MW.ED 11:26
DX: K65.4 Sclerosing mesenteritis (principal); E83.42 Hypomagnesemia; I12.9 Hypertensive chronic kidney disease with stage 1 through stage 4 chronic kidney disease, or unspecified chronic kidney disease; N18.9 Chronic kidney disease, unspecified; R74.01 Elevation of levels of liver transaminase levels; I25.10 Atherosclerotic heart disease of native coronary artery without angina pectoris; K21.9 Gastro-esophageal reflux disease without esophagitis; Z88.8 Allergy status to other drugs, medicaments and biological substances; Z88.2 Allergy status to sulfonamides; Z91.030 Bee allergy status; Z79.82 Long term (current) use of aspirin; Z79.4 Long term (current) use of insulin; Z79.899 Other long term (current) drug therapy
CPT/HCPCS: 36415; 74177; 76870; 80053; 81003; 82947; 83690; 83735; 85025; 87491; 87591; 93005; 93976; 96365; 96366; 99284; J3475; Q9967; 93010

== ENCOUNTER 2021-08-21 09:01 | Emergency (ER) | payer OTHER ==
[2021-08-21] MEDS ORDERED: Famotidine 20 MG/2 ML SDV IVPUSH ONE (09:21)
[2021-08-21] MEDS ORDERED: Ondansetron 4 MG/2 ML SDV IVPUSH ONE (09:21)
[2021-08-21 09:54] LABS: BLOOD UREA NITROGEN,BUN 19 mg/dL (7.0-18.0); CHLORIDE,CL 102 mmol/L (98-107); GLUCOSE RANDOM 159 mg/dL (74-106); LIPASE 65 U/L (73-393); POTASSIUM,K 4.4 mmol/L (3.5-5.1); SODIUM,NA 137 mmol/L (136-148)
[2021-08-21 11:06] VITALS: BP 141/43; PULSE 69
== END 2021-08-21 10:40 | disposition home or self-care (01) ==
LOC: MW.ED 09:01
DX: K29.70 Gastritis, unspecified, without bleeding (principal); I10 Essential (primary) hypertension; E78.00 Pure hypercholesterolemia, unspecified; I25.10 Atherosclerotic heart disease of native coronary artery without angina pectoris; K21.9 Gastro-esophageal reflux disease without esophagitis; E11.9 Type 2 diabetes mellitus without complications; Z79.899 Other long term (current) drug therapy; Z79.82 Long term (current) use of aspirin; Z88.2 Allergy status to sulfonamides; Z91.030 Bee allergy status
CPT/HCPCS: 36415; 80053; 83690; 84484; 85025; 93005; 96374; 96375; 99283; J2405; J3490

== ENCOUNTER 2023-03-01 07:27 | Day surgery (SDC) | payer OTHER ==
[~2023-03-01 07:27] MED LIST: Albuterol 0.083% 2.5 MG/3 ML Neb Soln NEB PRN; HYDROmorphone 1 MG/ML Syringe IVPUSH PRN; Lactated Ringers 1,000 ML IV SCH; Metoclopramide 10 MG/2 ML SDV IVPUSH PRN; Morphine 2 MG/ML SYRINGE IVPUSH PRN; Naloxone 0.4 MG/ML SDV IVPUSH PRN; Ondansetron 4 MG/2 ML SDV IVPUSH PRN; ceFAZolin 2 GM in Sodium Chloride 0.9% 50 ML IV ONE; droPERidol 5 MG/2 ML SDV IVPUSH PRN; fentaNYL 50 MCG/ML SDV IVPUSH PRN
[2023-03-01] MEDS ORDERED: Ropivacaine 0.5% 5 MG/ML 30 ML SDV ONE (07:41)
[2023-03-01] MEDS ORDERED: EPINEPHrine 1 MG/1 ML Amp ONE (07:44)
[2023-03-01] MEDS ORDERED: Sugammadex Sodium 200 MG/2 ML VIAL ONE (07:46)
[2023-03-01] MEDS ORDERED: Dexamethasone 4 MG/ML 5 ML MDV ONE (07:46)
[2023-03-01] MEDS ORDERED: Rocuronium Bromide 50 MG/5 ML Syringe ONE (07:46)
[2023-03-01] MEDS ORDERED: Lidocaine 2% 5 ML SDV ONE (07:46)
[2023-03-01] MEDS ORDERED: Ondansetron 4 MG/2 ML SDV ONE (07:46)
[2023-03-01] MEDS ORDERED: Propofol 200 MG/20 ML SDV ONE (07:48)
[2023-03-01] MEDS ORDERED: fentaNYL 100 MCG/2 ML SDV ONE (07:48)
[2023-03-01] MEDS ORDERED: Bupivacaine 0.5% 30 ML SDV ONE (08:40)
[2023-03-01] MEDS ORDERED: Lidocaine 2% 11 ML Jelly Filled Syringe ONE (08:48)
[2023-03-01] MEDS ORDERED: ceFAZolin 1 GM Vial ONE ×2 (08:49→09:06)
[2023-03-01] MEDS ORDERED: ceFAZolin 2 GM Vial ONE (09:05)
[2023-03-01] MEDS ORDERED: Desflurane 240 ML Bottle ONE (09:21)
[2023-03-01] MEDS ORDERED: ePHEDrine 50 MG/ML SDV ONE (09:31)
[2023-03-01] MEDS ORDERED: Morphine 4 MG/ML Syringe IVPUSH PRN (10:49)
[2023-03-01] MEDS ORDERED: Acetaminophen/HYDROcodone 325-5 MG Tab PO PRN (10:49)
[2023-03-01] MEDS ORDERED: Lactated Ringers 1,000 ML IV SCH (11:00)
[2023-03-01] MEDS: fentaNYL 100 MCG/2 ML SDV ONE ×3 (11:27→12:51)
[2023-03-01 12:44] VITALS: BP 135/73; PULSE 70
== END 2023-03-01 12:30 | disposition home or self-care (01) ==
LOC: MW.SDS 07:27
PROVIDERS: ATTEND Surgery
DX: K40.90 Unilateral inguinal hernia, without obstruction or gangrene, not specified as recurrent (principal); I25.10 Atherosclerotic heart disease of native coronary artery without angina pectoris; E78.00 Pure hypercholesterolemia, unspecified; I25.2 Old myocardial infarction; I50.30 Unspecified diastolic (congestive) heart failure; I13.0 Hypertensive heart and chronic kidney disease with heart failure and stage 1 through stage 4 chronic kidney disease, or unspecified chronic kidney disease; E11.22 Type 2 diabetes mellitus with diabetic chronic kidney disease; M19.90 Unspecified osteoarthritis, unspecified site; K21.9 Gastro-esophageal reflux disease without esophagitis; E66.01 Morbid (severe) obesity due to excess calories; Z68.34 Body mass index [BMI] 34.0-34.9, adult; Z79.82 Long term (current) use of aspirin; Z79.4 Long term (current) use of insulin; Z79.85 Long-term (current) use of injectable non-insulin antidiabetic drugs; Z79.899 Other long term (current) drug therapy; Z79.84 Long term (current) use of oral hypoglycemic drugs; Z88.2 Allergy status to sulfonamides; Z91.030 Bee allergy status; Z88.8 Allergy status to other drugs, medicaments and biological substances
CPT/HCPCS: 49505; 82947; A9270; C1781; J0171; J0690; J1100; J2405; J2704; J2795; J3010; J3490; J7120; 00830; 64486

== ENCOUNTER 2023-04-13 10:38 | Emergency (ER) | payer OTHER ==
[2023-04-13 12:44] VITALS: BP 134/87; PULSE 73
== END 2023-04-13 12:42 | disposition home or self-care (01) ==
LOC: MW.ED 10:38
DX: R68.84 Jaw pain (principal); I25.10 Atherosclerotic heart disease of native coronary artery without angina pectoris; I10 Essential (primary) hypertension; K21.9 Gastro-esophageal reflux disease without esophagitis; E11.9 Type 2 diabetes mellitus without complications; Z79.899 Other long term (current) drug therapy; Z88.8 Allergy status to other drugs, medicaments and biological substances; Z88.2 Allergy status to sulfonamides; Z91.038 Other insect allergy status; Z79.4 Long term (current) use of insulin; Z86.16 Personal history of COVID-19
CPT/HCPCS: 93005; 93010; 99283

== ENCOUNTER 2024-02-29 14:34 | Emergency (ER) | payer OTHER ==
[2024-02-29 16:59] VITALS: BP 106/72; PULSE 87
== END 2024-02-29 16:59 | disposition home or self-care (01) ==
LOC: MW.ED 14:34
DX: L29.9 Pruritus, unspecified (principal); L53.9 Erythematous condition, unspecified; I10 Essential (primary) hypertension; I25.10 Atherosclerotic heart disease of native coronary artery without angina pectoris; E78.00 Pure hypercholesterolemia, unspecified; E11.9 Type 2 diabetes mellitus without complications; Z95.1 Presence of aortocoronary bypass graft; Z79.84 Long term (current) use of oral hypoglycemic drugs; Z79.899 Other long term (current) drug therapy; Z79.4 Long term (current) use of insulin; Z88.8 Allergy status to other drugs, medicaments and biological substances; Z88.2 Allergy status to sulfonamides; Z91.030 Bee allergy status; Z75.8 Other problems related to medical facilities and other health care
CPT/HCPCS: 99282

== ENCOUNTER 2024-09-18 14:39 | Emergency (ER) | payer OTHER ==
[2024-09-18] MEDS: Cephalexin 500 MG Cap PO ONE (16:52)
[2024-09-18] MEDS: Diphtheria,Pertussis(Acell),Tetanus Vaccine 0.5 ML Syringe IM ONE (16:53)
[2024-09-18 17:07] VITALS: BP 120/73; PULSE 77
== END 2024-09-18 16:56 | disposition home or self-care (01) ==
LOC: MW.ED 14:39
DX: S61.231A Puncture wound without foreign body of left index finger without damage to nail, initial encounter (principal); I10 Essential (primary) hypertension; I25.10 Atherosclerotic heart disease of native coronary artery without angina pectoris; E11.9 Type 2 diabetes mellitus without complications; Z90.49 Acquired absence of other specified parts of digestive tract; Z88.2 Allergy status to sulfonamides; Z88.8 Allergy status to other drugs, medicaments and biological substances; Z91.030 Bee allergy status; Z79.4 Long term (current) use of insulin; Z79.84 Long term (current) use of oral hypoglycemic drugs; Z79.899 Other long term (current) drug therapy; W31.0XXA Contact with mining and earth-drilling machinery, initial encounter; Z23 Encounter for immunization
CPT/HCPCS: 73130; 90471; 90715; 99283; A9270

== ENCOUNTER 2025-01-22 11:20 | Emergency (ER) | payer OTHER ==
[2025-01-22 12:08] LABS: APPEARANCE,URINE SLT CLOUDY; GLUCOSE,URINE NEGATIVE (NEGATIVE); OCCULT BLOOD,URINE SMALL (NEGATIVE)
[2025-01-22 12:19] LABS: EPITHELIAL CELLS,URINE RARE (NONE-FEW)
[2025-01-22 12:44] LABS: BASOPHILS ABSOLUTE AUTO 0.03 K/uL (0.00-0.20); BASOPHILS PERCENT AUTO 0.4 % (0.0-1.0); EOSINOPHILS ABSOLUTE AUTO 0.10 K/uL (0.00-0.45); EOSINOPHILS PERCENT AUTO 1.3 % (0.0-6.0); IMMATURE GRAN ABSOLUTE AUTO 0.03 K/uL (0.00-0.05); IMMATURE GRAN PERCENT AUTO 0.4 % (0.0-0.4); LYMPHOCYTES ABSOLUTE AUTO 0.68 K/uL (1.00-4.80); LYMPHOCYTES PERCENT AUTO 8.9 % (24.0-44.0); MEAN PLATELET VOLUME 8.7 fL (9.4-12.4); MONOCYTES ABSOLUTE AUTO 0.40 K/uL (0.00-0.80); MONOCYTES PERCENT AUTO 5.3 % (0.0-8.0); NEUTROPHILS ABSOLUTE AUTO 6.36 K/uL (1.80-7.70); NEUTROPHILS PERCENT AUTO 83.7 % (41.0-71.0); NRBC ABSOLUTE 0.00 K/uL (0.00-0.02); NRBC PERCENT 0.0 /100WBC (0.0-0.2); PLATELET COUNT,PLT 130 K/uL (150-400); RED BLOOD CELL COUNT 4.85 M/uL (4.52-5.90); WHITE BLOOD CELL COUNT,WBC 7.60 K/uL (3.9-11.3)
[2025-01-22 12:55] LABS: A/G RATIO 0.7 (0.9-1.6); ALANINE AMINOTRANSFERASE,ALT 23.0 IU/L (14-63); ASPARTATE AMNIOTRANSFERASE,AST 22.0 IU/L (15-37); BILIRUBIN TOTAL 0.7 mg/dL (0.2-1.0); BLOOD UREA NITROGEN,BUN 16.0 mg/dL (7.0-18.0); CARBON DIOXIDE,CO2 26.0 mmol/L (21.0-32.0); CHLORIDE,CL 100.0 mmol/L (98-107); CREATINE KINASE,CK 147.0 U/L (26-308); CREATININE 1.4 mg/dL (0.8-1.3); EST CRCL DRUG DOSING (CG) 62.86 mL/min; GLUCOSE RANDOM 99.0 mg/dL (74-106); POTASSIUM,K 3.7 mmol/L (3.5-5.1); PROTEIN TOTAL,TP 7.5 g/dL (6.4-8.2); SODIUM,NA 134.0 mmol/L (136-148)
[2025-01-22 12:57] LABS: ESTIMATED GFR 55.0 mL/min (>60)
[2025-01-22] MEDS: Ondansetron 4 MG/2 ML SDV IVPUSH ONE (13:29)
[2025-01-22 13:57] VITALS: BP 109/77; PULSE 86
== END 2025-01-22 13:57 | disposition home or self-care (01) ==
LOC: MW.ED 11:20
DX: N39.0 Urinary tract infection, site not specified (principal); I25.10 Atherosclerotic heart disease of native coronary artery without angina pectoris; E78.00 Pure hypercholesterolemia, unspecified; E11.9 Type 2 diabetes mellitus without complications; I12.9 Hypertensive chronic kidney disease with stage 1 through stage 4 chronic kidney disease, or unspecified chronic kidney disease; N18.9 Chronic kidney disease, unspecified; Z88.2 Allergy status to sulfonamides; Z91.030 Bee allergy status; Z88.8 Allergy status to other drugs, medicaments and biological substances; Z79.84 Long term (current) use of oral hypoglycemic drugs; Z79.899 Other long term (current) drug therapy; Z79.85 Long-term (current) use of injectable non-insulin antidiabetic drugs; Z79.4 Long term (current) use of insulin
CPT/HCPCS: 36415; 80053; 81001; 82550; 85025; 96361; 96374; 99283; A9270; J2405; J7030